=== PATIENT | male | born 1975 | race American Indian/Alaskan Native ===

== ENCOUNTER 2017-06-07 15:01 | Inpatient (IN) | payer MEDICARE ==
[2017-06-07] MEDS ORDERED: DILAUDID IV PRN (15:35)
[2017-06-07] MEDS ORDERED: BENADRYL PO PRN (16:06)
[2017-06-07] MEDS ORDERED: BENADRYL IV PRN (16:23)
--- NOTE | 2017-06-07 16:25 | Event Note ---
Date: 06/07/17 Received consult for port placement. We will evaluate the patient after the spine MRI is performed. If there is question of an abscess in that region, that is a relative contraindication for placement of an implantable intravenous device. We will continue to follow the patient with you. Thank you.
[2017-06-07] MEDS ORDERED: NACL 0.9% 500 ML 500 ML IV SCH (16:26)
[2017-06-07 16:55] LABS: Mean Corpuscular HGB Conc 33 % (32-34); Mean Corpuscular Hemoglobin 31 pg (28-32); Mean Corpuscular Volume 93 fl (84-94); Platelet Count 421 K/mm3 (140-440); Red Blood Count 1.86 M/mm3 (3.65-5.03)
[2017-06-07 16:56] LABS: Reticulocyte % 8.83 % (0.78-2.58)
[2017-06-07 16:57] LABS: White Blood Count 28.1 K/mm3 (4.5-11.0)
[2017-06-07 16:59] LABS: Hemoglobin 5.7 gm/dl (11.8-15.2)
[2017-06-07 17:00] LABS: Hematocrit 17.4 % (35.5-45.6); Red Cell Distribution Width 21.9 % (13.2-15.2)
[2017-06-07 17:07] LABS: INR 1.22 (0.87-1.13)
[2017-06-07] MEDS: D5NS 0.2% 1,000 ML IV SCH (17:30)
[2017-06-07 17:31] LABS: Anion Gap 22 mmol/L; BUN/Creatinine Ratio 16; Blood Urea Nitrogen 21 mg/dL (9-20); Calcium 8.7 mg/dL (8.4-10.2); Carbon Dioxide 21 mmol/L (22-30); Chloride 98.5 mmol/L (98-107); Glucose 85 mg/dL (75-100); Potassium 4.6 mmol/L (3.6-5.0); Sodium 137 mmol/L (137-145)
[2017-06-07] MEDS: BENADRYL IV PRN ×2 (17:33→22:01)
[2017-06-07 18:11] LABS: Basophils % (Manual) 0 % (0.0-1.8); Blastocytes % (Manual) 0 %; Eosinophils % (Manual) 2.5 % (0.0-4.3); Sickle Cells 3+
[2017-06-07 18:12] LABS: Anisocytosis 1+; Poikilocytosis 1+; Polychromasia Few; Target Cells 1+
[2017-06-07 18:13] LABS: Diff Status Complete; Platelet Estimate Cons
--- NOTE | 2017-06-07 20:50 | Consultation ---
History of Present Illness - Reason for Consult Consult date: 06/07/17 SCD/anemia, sickle pain. Requesting physician: LENNOX COHN - History of Present Illness Thank you for this consult, patient seen/examined, record reviewed, case d/w his mom at the bed side. patient admitted from the office, for sxs control.He has many ab, so [facility] will release blood once safe to transfuse. Past History Past Medical History: anemia Social history: no significant social history Medications and Allergies Allergies Allergy/AdvReac Type Severity Reaction Status Date / Time hydroxyzine HCl Allergy Hives Verified 10/24/15 07:44 [From Vistaril] hydroxyzine pamoate Allergy Hives Verified 10/24/15 07:44 [From Vistaril] Home Medications Medication Instructions Recorded Confirmed Last Taken Type Folic Acid [Folvite] 1 mg PO QDAY 05/08/15 06/07/17 06/03/17 History diphenhydrAMINE [Benadryl CAP] 25 mg PO Q6HR PRN 05/08/15 06/07/17 06/07/17 13: 00 History Oxycodone HCl/Acetaminophen 1 each PO Q6HR PRN 10/14/15 06/07/17 06/07/17 13:00 History [Percocet 10/325 mg] Rivaroxaban [Xarelto] 20 mg PO QDAY 06/07/17 06/07/17 06/06/17 History Active Meds: Active Medications Diphenhydramine HCl (Benadryl) 25 mg IV Q3H PRN PRN Reason: Itching Last Admin: 06/07/17 17:33 Dose: 25 mg Diphenhydramine HCl (Benadryl) 25 mg IV Q4H PRN PRN Reason: Itching Diphenhydramine HCl (Benadryl) 25 mg PO PRN PRN PRN Reason: GIVEN FOR BLOOD TRANSFUSION Diphenhydramine HCl (Benadryl) 25 mg IV PRN PRN PRN Reason: GIVE WITH BLOOD TRANSFUSION Hydromorphone HCl (Dilaudid) 2 mg IV Q4H PRN PRN Reason: Pain , Severe (7-10) Dextrose/Sodium Chloride (D5ns 0.2%) 1,000 mls @ 150 mls/hr IV DIRECT JAMIN Last Admin: 06/07/17 17:30 Dose: 150 mls/hr Sodium Chloride (Nacl 0.9% 500 Ml) 500 mls @ 0 mls/hr IV ONCE JAMIN PRN Reason: As Directed Stop: 06/07/17 23:00 Review of Systems Constitutional: fatigue, weakness Musculoskeletal: low back pain Exam - Constitutional Vitals: Temp Pulse Resp BP Pulse Ox 99.1 F 96 H 18 104/63 90 06/07/17 16:26 06/07/17 16:26 06/07/17 16:26 06/07/17 16:26 06/07/17 16:26 General appearance: Present: mild distress - EENT Eyes: Present: PERRL ENT: hearing intact, clear oral mucosa - Neck Neck: Present: supple, normal ROM - Respiratory Respiratory effort: normal Respiratory: bilateral: CTA - Cardiovascular Heart Sounds: Present: S1 & S2. Absent: rub, click - Extremities Extremities: pulses symmetrical, No edema Peripheral Pulses: within normal limits - Abdominal General gastrointestinal: Present: soft, non-tender, non-distended, normal bowel sounds Male genitourinary: Present: deferred - Rectal Rectal Exam: deferred - Integumentary Integumentary: Present: clear, warm, dry - Musculoskeletal Musculoskeletal: gait normal, strength equal bilaterally - Psychiatric Psychiatric: appropriate mood/affect, intact judgment & insight - Neurologic Neurologic: CNII-XII intact, moves all extremities Results - Labs CBC & Chem 7: 06/07/17 15:49 06/07/17 15:49 Labs: Abnormal lab results 06/07/17 06/07/17 06/07/17 Range/Units 15:49 15:49 15:49 WBC 28.1 H (4.5-11.0) K/mm3 RBC 1.86 L (3.65-5.03) M/mm3 Hgb 5.7 L* (11.8-15.2) gm/dl Hct 17.4 L* (35.5-45.6) % RDW 21.9 H (13.2-15.2) % Seg Neuts % (Manual) 74.5 H (40.0-70.0) % Monocytes % (Manual) 7.5 H (0.0-7.3) % Seg Neutrophils # Man 20.9 H (1.8-7.7) K/mm3 Monocytes # (Manual) 2.1 H (0.0-0.8) K/mm3 Eosinophils # (Manual) 0.7 H (0.0-0.4) K/mm3 Percent Retic 8.83 H (0.78-2.58) % PT 16.0 H (12.2-14.9) Sec. INR 1.22 H (0.87-1.13) Carbon Dioxide 21 L (22-30) mmol/L BUN 21 H (9-20) mg/dL Assessment and Plan - Patient Problems (1) Anemia Current Visit: No Status: Acute Qualifiers: Anemia type: unspecified type Qualified Code(s): D64.9 - Anemia, unspecified Plan to address problem: awaiting blood. (2) Dehydration Current Visit: No Status: Acute Plan to address problem: Hydration. (3) Iron overload due to repeated red blood cell transfusions Current Visit: No Status: Acute Plan to address problem: Will attempt Desferol tx.
[2017-06-07] MEDS ORDERED: XYLOCAINE 1% MPF 5 mL INFILTRATI ONE (20:53)
[2017-06-07] MEDS: DILAUDID IV PRN (22:02)
[2017-06-08] MEDS: D5NS 0.2% 1,000 ML IV SCH ×3 (01:02→17:48)
[2017-06-08] MEDS: cefTRIAXone 1 GM in NACL 0.9% 20 ML IV SCH (01:03)
[2017-06-08] MEDS: BENADRYL IV PRN ×5 (01:16→21:29)
[2017-06-08] MEDS: ZOFRAN IV PRN (01:36)
[2017-06-08] MEDS: DILAUDID IV PRN ×6 (02:35→21:30)
--- NOTE | 2017-06-08 03:05 | XRay Report ---
FINAL REPORT EXAM: XR CHEST 1V AP HISTORY: sob, TECHNIQUE: A portable supine view of the chest was obtained. There are no previous studies available for comparison. FINDINGS: The heart size is normal. The lungs appear congested. There are atelectatic changes in the right lung base. Pleural fluid is not seen. The skeletal structures reveal generalized sclerotic changes of the bones related to the patient's underlying sickle cell disease. IMPRESSION: Pulmonary vascular congestion. Mild atelectasis in the right lower lobe.
--- NOTE | 2017-06-08 04:47 | Event Note ---
Date: 06/07/17 See Dictated H/p in reports Sickle cell crisis Acute Anemia-HemolyticPain Management Port placement
--- NOTE | 2017-06-08 05:22 | History and Physical Report ---
ADDENDUM ASSESSMENT AND PLAN: Pulmonary vascular congestion. IV Lasix for now. Systemic inflammatory response syndrome secondary to elevated blood count of 28,000. Stress-induced. We will get blood cultures. Rocephin 2 grams IV piggyback q. 24 hours for broad-spectrum antibiotic coverage. PROGNOSIS: Fair. JOB# [id number] VSM/NTS
--- NOTE | 2017-06-08 05:39 | History and Physical Report ---
CHIEF COMPLAINT: Body aches, severe chest pain for the last 2-3 weeks. HISTORY OF PRESENT ILLNESS: A 41-year-old male, -[place] with sickle cell anemia and sickle cell crisis, comes in for severe pain all over, especially in the retrosternal chest and bilateral heaves for the past 2-3 weeks. The patient ____ nearly 3 weeks. Some shortness of breath present. Some chest pain present. Pain is 10 on a scale of 1-10. No recent travel, no shortness of breath. No fever, no chills. The patient had recurrent blood transfusions in the past. PAST MEDICAL HISTORY: Sickle cell crisis, sickle cell anemia, bilateral hip pain, and chronic pain. PAST SURGICAL HISTORY: Port inserted. Three I and D done for abscesses, two on the right side and one on the left side. No recent abscesses. PERSONAL HISTORY: Does not smoke. No alcohol, no recreational drugs. FAMILY HISTORY: Significant for sickle cell trait and hypertension. CURRENT MEDICATIONS: Folic acid 1 mg daily, Benadryl 25 mg q.6 p.r.n., Percocet 10/325 q.6 p.r.n. REVIEW OF SYSTEMS: Significant for pain all over. No exacerbating or relieving factors. Pain is 10/10 on a scale of 1-10. Pain is more in both hips and chest. Otherwise, review of systems is negative. PHYSICAL EXAMINATION: GENERAL: Young male, cooperative during examination. VITAL SIGNS: Blood pressure is 104/63, temperature is 99.1, pulse is 96, respirations are 18, sats are 90%. HEENT: Pale mucous membranes. NECK: Supple, no lymphadenopathy, no thyromegaly. LUNGS: Clear to auscultation and percussion. Good air entry. CARDIOVASCULAR: S1, S2 heard. No gallop, no murmur, no rub. Apical impulse in left fifth intercostal space and midclavicular line. ABDOMEN: Soft and benign. No hepatosplenomegaly, no guarding, no rigidity. Hernial orifices are normal. EXTREMITIES: Good pedal pulses. No pedal edema. CENTRAL NERVOUS SYSTEM: Alert and oriented x 4, nonfocal exam. Range of motion normal at both hips. LABORATORY DATA: Significant for white count of 28,000, hemoglobin of 5.7, hematocrit of 17.4. Retic count is 8.83%. BUN and creatinine are slightly high at 21 and 1.3. Sodium is 137, potassium is 4.6, calcium is 8.7, glucose is 85. ASSESSMENT AND PLAN: 1. Sickle cell crisis. The patient to be given IV fluids and IV Dilaudid 2 mg every [address] Myers consulted. 2. Pulmonary vascular congestion. Lasix initiated. 3. Bilateral hip pain. X-rays of both the hips to be obtained. 4. Acute hemolytic anemia secondary to sickle cell crisis. The patient to be transfused 2 units of blood and ____ monitor of him hematocrit and hemoglobin. 4. Chronic pain. The patient to get Dilaudid 2 mg every 3 hours and IV fluids. Percocet p.r.n. We will require a port insertion for medication administration. 5. Deep venous thrombosis prophylaxis, Lovenox 40 mg subcutaneous daily. JOB# [id number] BROCK/JACKSON
[2017-06-08] MEDS ORDERED: VALIUM IV STA (09:25)
[2017-06-08] MEDS ORDERED: ROCEPHIN IV SCH (10:00)
--- NOTE | 2017-06-08 13:33 | Magnetic Resonance Report ---
MRI LUMBAR SPINE WITHOUT AND WITH CONTRAST: 05/29/17 CLINICAL: Sickle cell crisis and bacteremia. TECHNIQUE: Sagittal and axial T1 and T2, sagittal STIR and sagittal and axial postcontrast T1 fat sat sequences a 1.5 Sue magnet. 15 cc of Multihance was injected intravenously for the contrast portion of the exam. The patient was sedated by a floor nurse prior to the procedure. FINDINGS: Bony changes in the lumbar spine are compatible with sickle cell disease. The bone marrow is hypointense on all sequences. No bone lesions are identified. No mass or enhancing lesion. No fluid collection or abscess. Decreased T2 disc signal at L3-4 and L4-5. The rest of the discs have normal signal. The conus medullaris is normal and terminates at L1. The discs are intact at all levels. No disc protrusions or bulges. No neural foraminal narrowing. IMPRESSION: 1. No evidence of infection or abscess. 2. Bone marrow changes typical of sickle cell disease. 3. Disc desiccation at L3-4 and L4-5 but no disc protrusions or bulges. 4. No neural foraminal stenosis. 5. No suspicious bone lesion.
--- NOTE | 2017-06-08 13:56 | Event Note ---
Date: 06/08/17 Infection has been excluded via lumbar spine MRI. We can proceed with port placement tomorrow. Full consult to follow.
[2017-06-08 15:01] LABS: INR 1.17 (0.87-1.13)
[2017-06-08] MEDS ORDERED: DILAUDID IV PRN (15:41)
--- NOTE | 2017-06-08 18:18 | XRay Report ---
FINAL REPORT EXAM: XR ABDOMEN 2V HISTORY: vomiting, pain TECHNIQUE: Supine and upright abdomen PRIORS: None. FINDINGS: Moderate amount of stool and gas present within the colon. No evidence of colonic or small bowel dilatation. No signs of free air. No abnormal calcifications are identified. IVC filter noted at the L2-L3 level IMPRESSION: Nonobstructive bowel gas pattern. No acute abnormality seen.
[2017-06-08] MEDS ORDERED: NACL 0.9% 500 ML 500 ML IV ONE (20:00)
--- NOTE | 2017-06-08 21:36 | Progress Note ---
Assessment and Plan - Patient Problems (1) Anemia Current Visit: No Status: Acute Qualifiers: Anemia type: unspecified type Qualified Code(s): D64.9 - Anemia, unspecified Plan to address problem: awaiting blood. (2) Dehydration Current Visit: No Status: Acute Plan to address problem: Hydration. (3) Iron overload due to repeated red blood cell transfusions Current Visit: No Status: Acute Plan to address problem: Will attempt Desferol tx. after port placement. Subjective Date of service: 06/08/17 Interval history: Patient seen/examined, resting in bed, his mom at the bed side, they both related to me what happened last night with his rocephin push.. MRI/CXR/abd xray reviewed. L3-L5 decication.The could also be neuropathic pain, as patient is unable to walk, and did not want a bed side commode, instead, he will use a walker. Objective - Constitutional Vitals: Vital Signs - 12hr 06/08/17 06/08/17 17:59 21:30 Temperature 99.3 F Pulse Rate 107 H Respiratory 18 20 Rate Blood Pressure 96/53 O2 Sat by Pulse 84 Oximetry General appearance: Present: mild distress - EENT Eyes: PERRL, EOM intact ENT: hearing intact, clear oral mucosa Ears: bilateral: normal - Neck Neck: supple, normal ROM - Respiratory Respiratory effort: normal Respiratory: bilateral: CTA - Cardiovascular Rhythm: regular Heart Sounds: Present: S1 & S2. Absent: gallop, rub Extremities: pulses intact, No edema, normal color, Full ROM - Gastrointestinal General gastrointestinal: Present: soft, non-tender, non-distended, normal bowel sounds Rectal Exam: deferred - Genitourinary Male genitourinary: deferred - Integumentary Integumentary: clear, warm, dry - Musculoskeletal Musculoskeletal: 1, strength equal bilaterally - Neurologic Neurologic: moves all extremities - Psychiatric Psychiatric: memory intact, appropriate mood/affect, intact judgment & insight - Labs CBC & Chem 7: 06/07/17 15:49 06/07/17 15:49 Labs: Abnormal lab results 06/08/17 Range/Units 14:31 PT 15.5 H (12.2-14.9) Sec. INR 1.17 H (0.87-1.13)
[2017-06-08] MEDS ORDERED: NACL 0.9% 500 ML 500 ML ONE (23:07)
--- NOTE | 2017-06-08 23:51 | Progress Note ---
Assessment and Plan - Patient Problems (1) Systemic inflammatory response syndrome Current Visit: No Status: Acute Plan to address problem: Leukocytosis Etio unclear IV rocephin and zithromax for now (2) Sickle cell pain crisis Current Visit: No Status: Acute Plan to address problem: IV fluids and IV Dilaudid prn Retic count high (3) Anemia requiring transfusions Current Visit: No Status: Acute Plan to address problem: Patient has multiple antibodies.Hence delay in getting transfusions.Ordered 3 units.Still pending (4) Iron overload due to repeated red blood cell transfusions Current Visit: No Status: Chronic Plan to address problem: patient on desferoxaime (5) DVT prophylaxis Current Visit: Yes Status: Acute Plan to address problem: on lovenox Subjective Date of service: 06/08/17 Principal diagnosis: SC crisis Interval history: Still in pain.04/19 Objective - Constitutional Vitals: Vital Signs - 12hr 06/08/17 06/08/17 06/08/17 17:59 21:30 21:44 Temperature 99.3 F 99.3 F Pulse Rate 107 H Respiratory 18 20 16 Rate Blood Pressure 96/53 101/56 O2 Sat by Pulse 84 Oximetry 06/08/17 06/08/17 06/08/17 22:00 23:21 23:36 Temperature 98.8 F 99.0 F Pulse Rate 73 101 H Respiratory 20 20 20 Rate Blood Pressure 99/66 87/43 O2 Sat by Pulse 98 98 Oximetry General appearance: Present: no acute distress, well-nourished - EENT Eyes: PERRL, EOM intact ENT: hearing intact, clear oral mucosa Ears: bilateral: normal - Neck Neck: supple, normal ROM - Respiratory Respiratory effort: normal Respiratory: bilateral: CTA - Breasts Breasts: normal - Cardiovascular Heart rate: 78 Rhythm: regular Heart Sounds: Present: S1 & S2. Absent: gallop, rub Extremities: no ischemia, pulses intact, pulses symmetrical, No edema, normal color, Full ROM - Gastrointestinal General gastrointestinal: Present: soft, non-tender, non-distended, normal bowel sounds - Genitourinary Male genitourinary: normal - Integumentary Integumentary: clear, warm, dry - Musculoskeletal Musculoskeletal: 1, strength equal bilaterally - Neurologic Neurologic: moves all extremities - Psychiatric Psychiatric: memory intact, appropriate mood/affect, intact judgment & insight - Labs CBC & Chem 7: 06/07/17 15:49 06/07/17 15:49 Labs: Abnormal lab results 06/08/17 Range/Units 14:31 PT 15.5 H (12.2-14.9) Sec. INR 1.17 H (0.87-1.13)
[2017-06-09] MEDS: NEURONTIN PO SCH ×3 (00:24→21:32)
[2017-06-09] MEDS: DILAUDID IV PRN ×5 (03:09→21:31)
[2017-06-09] MEDS: ZOFRAN IV PRN (03:09)
[2017-06-09] MEDS: BENADRYL IV PRN ×5 (03:17→21:31)
[2017-06-09] MEDS: cefTRIAXone 1 GM in NACL 0.9% 20 ML IV SCH (04:58)
--- NOTE | 2017-06-09 11:23 | Event Note ---
Date: 06/09/[address] Quick this morning. We agreed that in light of the patient's leukocytosis and other infectious issues, it is better to defer placing an implantable intravenous device at this time. Once the leukocytosis has resolved and if the patient continues to be afebrile, we can proceed with port placement on an inpatient or outpatient basis.
[2017-06-09] MEDS ORDERED: NACL 0.9% 500 ML 500 ML ONE (12:34)
[2017-06-09] MEDS: ZITHROMAX 500 MG in NACL 0.9% 250ML 250 ML IV SCH (12:38)
[2017-06-09] MEDS: cefTRIAXone 2 GM in NACL 0.9% 20 ML IV SCH (12:38)
--- NOTE | 2017-06-09 14:45 | Progress Note ---
Assessment and Plan Assessment and plan: Sickle cell pain crises Sickle cell anemia SIRS - Hemoglobin at admission was 5.7, transfused 2 units of blood ordered repeat CBC but was not done - Don't know his posttransfusion hemoglobin and hematocrit - Patient has SIRS, was admission WBC count of 28, pending repeat one, she empties is empirically on Rocephin - Patient need port cath placement but not placed because of his SIRS/ Leukocytosis, scrotal surgery recommended to detailed outpatient DVT prophylaxis - SCDs because of severe anemia Disposition - Continue inpatient care I have discussed the management plan with his mother and the patient. History Interval history: Patient was seen and evaluated this morning, patient is complaining she is feeling weak pain in his legs and back. Labs are not done for the last 2 days, has been ordered but not collected. Put a communication order. Hospitalist Physical - Physical exam Narrative exam: Not in cardiopulmonary distress. The patient appeared well nourished and normally developed. Pale conjunctiva. Vital signs as documented. Head exam is unremarkable. No scleral icterus . Neck is without jugular venous distension, thyromegaly, or carotid bruits. Lungs are clear to auscultation. Cardiac exam reveals regular rate and Rhythm. First and second heart sounds normal. No murmurs, rubs or gallops. Abdominal exam reveals normal bowel sounds, no masses, no organomegaly and no aortic enlargement. Extremities are nonedematous and both femoral and pedal pulses are normal. [employer] COMP[employer]ER: Alert and oriented 3. No focal weakness. - Constitutional Vitals: Temp Pulse Resp BP Pulse Ox 98.4 F 89 14 86/57 99 06/09/17 08:09 06/09/17 06:12 06/09/17 08:09 06/09/17 08:09 06/09/17 02:45 General appearance: Present: no acute distress, well-nourished Results - Labs CBC & Chem 7: 06/07/17 15:49 06/07/17 15:49 Labs: Laboratory Last Values WBC 28.1 K/mm3 (4.5-11.0) H 06/07/17 15:49 RBC 1.86 M/mm3 (3.65-5.03) L 06/07/17 15:49 Hgb 5.7 gm/dl (11.8-15.2) L* 06/07/17 15:49 Hct 17.4 % (35.5-45.6) L* 06/07/17 15:49 MCV 93 fl (84-94) 06/07/17 15:49 MCH 31 pg (28-32) 06/07/17 15:49 MCHC 33 % (32-34) 06/07/17 15:49 RDW 21.9 % (13.2-15.2) H 06/07/17 15:49 Plt Count 421 K/mm3 (140-440) 06/07/17 15:49 Lymph # Double End Tenoner Setter 06/07/17 15:49 Add Manual Diff Complete 06/07/17 15:49 Total Counted 200 06/07/17 15:49 Seg Neuts % (Manual) 74.5 % (40.0-70.0) H 06/07/17 15:49 Band Neutrophils % 0 % 06/07/17 15:49 Lymphocytes % (Manual) 15.5 % (13.4-35.0) 06/07/17 15:49 Reactive Lymphs % (Man) 0 % 06/07/17 15:49 Monocytes % (Manual) 7.5 % (0.0-7.3) H 06/07/17 15:49 Eosinophils % (Manual) 2.5 % (0.0-4.3) 06/07/17 15:49 Basophils % (Manual) 0 % (0.0-1.8) 06/07/17 15:49 Metamyelocytes % 0 % 06/07/17 15:49 Myelocytes % 0 % 06/07/17 15:49 Promyelocytes % 0 % 06/07/17 15:49 Blast Cells % 0 % 06/07/17 15:49 Nucleated RBC % Not Reportable 06/07/17 15:49 Seg Neutrophils # Man 20.9 K/mm3 (1.8-7.7) H 06/07/17 15:49 Band Neutrophils # 0.0 K/mm3 06/07/17 15:49 Lymphocytes # (Manual) 4.4 K/mm3 (1.2-5.4) 06/07/17 15:49 Abs React Lymphs (Man) 0.0 K/mm3 06/07/17 15:49 Monocytes # (Manual) 2.1 K/mm3 (0.0-0.8) H 06/07/17 15:49 Eosinophils # (Manual) 0.7 K/mm3 (0.0-0.4) H 06/07/17 15:49 Basophils # (Manual) 0.0 K/mm3 (0.0-0.1) 06/07/17 15:49 Metamyelocytes # 0.0 K/mm3 06/07/17 15:49 Myelocytes # 0.0 K/mm3 06/07/17 15:49 Promyelocytes # 0.0 K/mm3 06/07/17 15:49 Blast Cells # 0.0 K/mm3 06/07/17 15:49 WBC Morphology Not Reportable 06/07/17 15:49 Hypersegmented Neuts Not Reportable 06/07/17 15:49 Hyposegmented Neuts Not Reportable 06/07/17 15:49 Hypogranular Neuts Not Reportable 06/07/17 15:49 Smudge Cells Not Reportable 06/07/17 15:49 Toxic Granulation Not Reportable 06/07/17 15:49 Toxic Vacuolation Not Reportable 06/07/17 15:49 Dohle Bodies Not Reportable 06/07/17 15:49 Pelger-Huet Anomaly Not Reportable 06/07/17 15:49 Farrah Rods Not Reportable 06/07/17 15:49 Platelet Estimate Cons 06/07/17 15:49 Clumped Platelets Not Reportable 06/07/17 15:49 Plt Clumps, EDTA Not Reportable 06/07/17 15:49 Large Platelets Not Reportable 06/07/17 15:49 Giant Platelets Not Reportable 06/07/17 15:49 Platelet Satelliting Not Reportable 06/07/17 15:49 Plt Morphology Comment Not Reportable 06/07/17 15:49 RBC Morphology Not Reportable 06/07/17 15:49 Dimorphic RBCs Not Reportable 06/07/17 15:49 Polychromasia Few 06/07/17 15:49 Hypochromasia Not Reportable 06/07/17 15:49 Poikilocytosis 1+ 06/07/17 15:49 Anisocytosis 1+ 06/07/17 15:49 Microcytosis Not Reportable 06/07/17 15:49 Macrocytosis Not Reportable 06/07/17 15:49 Spherocytes Not Reportable 06/07/17 15:49 Pappenheimer Bodies Not Reportable 06/07/17 15:49 Sickle Cells 3+ 06/07/17 15:49 Target Cells 1+ 06/07/17 15:49 Tear Drop Cells Not Reportable 06/07/17 15:49 Ovalocytes Not Reportable 06/07/17 15:49 Helmet Cells Not Reportable 06/07/17 15:49 [place] Bodies Not Reportable 06/07/17 15:49 [place] Rings Not Reportable 06/07/17 15:49 [place] Cells Not Reportable 06/07/17 15:49 Bite Cells Not Reportable 06/07/17 15:49 Crenated Cell Not Reportable 06/07/17 15:49 Elliptocytes Not Reportable 06/07/17 15:49 Acanthocytes (Spur) Not Reportable 06/07/17 15:49 Rouleaux Not Reportable 06/07/17 15:49 Hemoglobin C Crystals Not Reportable 06/07/17 15:49 Schistocytes Not Reportable 06/07/17 15:49 Malaria parasites Not Reportable 06/07/17 15:49 Percent Retic 8.83 % (0.78-2.58) H 06/07/17 15:49 Tom Bodies Not Reportable 06/07/17 15:49 Hem Pathologist Commnt No 06/07/17 15:49 PT 15.5 Sec. (12.2-14.9) H 06/08/17 14:31 INR 1.17 (0.87-1.13) H 06/08/17 14:31 Sodium 137 mmol/L (137-145) 06/07/17 15:49 Potassium 4.6 mmol/L (3.6-5.0) 06/07/17 15:49 Chloride 98.5 mmol/L (98-107) 06/07/17 15:49 Carbon Dioxide 21 mmol/L (22-30) L 06/07/17 15:49 Anion Gap 22 mmol/L 06/07/17 15:49 BUN 21 mg/dL (9-20) H 06/07/17 15:49 Creatinine 1.3 mg/dL (0.8-1.5) 06/07/17 15:49 Estimated GFR > 60 ml/min 06/07/17 15:49 BUN/Creatinine Ratio 16 % 06/07/17 15:49 Glucose 85 mg/dL (75-100) 06/07/17 15:49 Calcium 8.7 mg/dL (8.4-10.2) 06/07/17 15:49 Blood Type A POSITIVE 06/07/17 18:10 Antibody Screen Negative 06/07/17 18:10
[2017-06-09 14:48] LABS: Hemoglobin 6.5 gm/dl (11.8-15.2); Mean Corpuscular HGB Conc 35 % (32-34); Mean Corpuscular Hemoglobin 30 pg (28-32); Mean Corpuscular Volume 86 fl (84-94); Platelet Count 410 K/mm3 (140-440); Red Blood Count 2.15 M/mm3 (3.65-5.03)
[2017-06-09 14:54] LABS: Red Cell Distribution Width 21.8 % (13.2-15.2); White Blood Count 20.2 K/mm3 (4.5-11.0)
[2017-06-09 14:55] LABS: Hematocrit 18.4 % (35.5-45.6)
[2017-06-09 15:02] LABS: Anion Gap 16 mmol/L; BUN/Creatinine Ratio 17; Blood Urea Nitrogen 15 mg/dL (9-20); Calcium 8.4 mg/dL (8.4-10.2); Carbon Dioxide 22 mmol/L (22-30); Chloride 101.7 mmol/L (98-107); Glucose 84 mg/dL (75-100); INR 1.29 (0.87-1.13); Potassium 4.7 mmol/L (3.6-5.0); Sodium 135 mmol/L (137-145)
--- NOTE | 2017-06-09 16:35 | Progress Note ---
Assessment and Plan - Patient Problems (1) Anemia Current Visit: No Status: Acute Qualifiers: Anemia type: unspecified type Qualified Code(s): D64.9 - Anemia, unspecified Plan to address problem: awaiting blood. (2) Dehydration Current Visit: No Status: Acute Plan to address problem: Hydration. (3) Iron overload due to repeated red blood cell transfusions Current Visit: No Status: Chronic Plan to address problem: Will attempt Desferol tx. after port placement. Subjective Date of service: 06/09/17 Principal diagnosis: SC crisis Interval history: Patient seen/examined, resting in bed, his mom at the bed side, they both related to me what happened last night with his rocephin push.. MRI/CXR/abd xray reviewed. L3-L5 decication.The could also be neuropathic pain, as patient is unable to walk, and did not want a bed side commode, instead, he will use a walker. Patient seen, resting in bed, labs reviewed, case d/w patient.No blood yet. Objective - Constitutional Vitals: Vital Signs - 12hr 06/09/17 06/09/17 06/09/17 06:12 07:31 08:09 Temperature 98.7 F 98.4 F Pulse Rate 89 Respiratory 20 20 14 Rate Blood Pressure 88/54 86/57 General appearance: Present: no acute distress, well-nourished - EENT Eyes: PERRL, EOM intact ENT: hearing intact, clear oral mucosa Ears: bilateral: normal - Neck Neck: supple, normal ROM - Respiratory Respiratory effort: normal Respiratory: bilateral: CTA - Cardiovascular Rhythm: regular Heart Sounds: Present: S1 & S2. Absent: gallop, rub Extremities: pulses intact, No edema, normal color, Full ROM - Gastrointestinal General gastrointestinal: Present: soft, non-tender, non-distended, normal bowel sounds - Genitourinary Male genitourinary: deferred - Integumentary Integumentary: clear, warm, dry - Musculoskeletal Musculoskeletal: 1, strength equal bilaterally - Neurologic Neurologic: moves all extremities - Psychiatric Psychiatric: memory intact, appropriate mood/affect, intact judgment & insight - Labs CBC & Chem 7: 06/09/17 14:30 06/09/17 14:30 Labs: Abnormal lab results 06/09/17 06/09/17 06/09/17 Range/Units 14:30 14:30 14:30 WBC 20.2 H (4.5-11.0) K/mm3 RBC 2.15 L (3.65-5.03) M/mm3 Hgb 6.5 L (11.8-15.2) gm/dl Hct 18.4 L* (35.5-45.6) % MCHC 35 H (32-34) % RDW 21.8 H (13.2-15.2) % PT 16.7 H (12.2-14.9) Sec. INR 1.29 H (0.87-1.13) Sodium 135 L (137-145) mmol/L
[2017-06-09] MEDS: D5NS 0.2% 1,000 ML IV SCH (19:58)
[2017-06-10] MEDS: BENADRYL IV PRN ×6 (01:39→21:36)
[2017-06-10] MEDS: DILAUDID IV PRN ×6 (01:39→21:35)
[2017-06-10 02:11] LABS: Bilirubin,Urine NEG (Negative); Blood,Urine SM (Negative); Ketones,Urine NEG (Negative); Leukocyte Esterase,Urine NEG (Negative); Nitrite,Urine NEG (Negative); Urobilinogen,Urine < 2.0 mg/dL (<2.0); WBC,Urine < 1.0 /HPF (0.0-6.0)
[2017-06-10] MEDS: D5NS 0.2% 1,000 ML IV SCH ×2 (05:37→22:14)
[2017-06-10 05:53] LABS: Hematocrit 22.3 % (35.5-45.6); Hemoglobin 7.8 gm/dl (11.8-15.2); Mean Corpuscular HGB Conc 35 % (32-34); Mean Corpuscular Hemoglobin 30 pg (28-32); Mean Corpuscular Volume 86 fl (84-94); Platelet Count 457 K/mm3 (140-440); Red Blood Count 2.61 M/mm3 (3.65-5.03)
[2017-06-10 06:00] LABS: Red Cell Distribution Width 20.8 % (13.2-15.2); White Blood Count 20.5 K/mm3 (4.5-11.0)
[2017-06-10 06:01] LABS: Anion Gap 17 mmol/L; BUN/Creatinine Ratio 16; Blood Urea Nitrogen 14 mg/dL (9-20); Calcium 8.6 mg/dL (8.4-10.2); Carbon Dioxide 23 mmol/L (22-30); Chloride 100.8 mmol/L (98-107); Glucose 110 mg/dL (75-100); Potassium 4.6 mmol/L (3.6-5.0); Sodium 136 mmol/L (137-145)
[2017-06-10 07:28] LABS: Blastocytes % (Manual) 0 %
[2017-06-10 07:29] LABS: Anisocytosis 2+; Diff Status Complete; Elliptocytes 1+; Hypochromasia 1+; Microcytosis 1+; Ovalocytes Few; Poikilocytosis 1+; Polychromasia 2+; Sickle Cells 1+; Target Cells 1+; Tear Drop Cells Rare
[2017-06-10] MEDS: NEURONTIN PO SCH ×2 (10:54→21:34)
[2017-06-10] MEDS: ZITHROMAX 500 MG in NACL 0.9% 250ML 250 ML IV SCH (11:00)
[2017-06-10] MEDS: cefTRIAXone 2 GM in NACL 0.9% 20 ML IV SCH (11:00)
--- NOTE | 2017-06-10 13:46 | Progress Note ---
Assessment and Plan Assessment and plan: Sickle cell pain crises Sickle cell anemia SIRS - Hemoglobin at admission was 5.7, and 7.8 this morning - Patient has SIRS, was admission WBC count of 28, 20k this morning, Alma is empirically on Rocephin - Patient need port cath placement but not placed because of his SIRS/ Leukocytosis, vascular surgery recommended to detailed outpatient DVT prophylaxis - SCDs because of severe anemia Disposition - Continue inpatient care I have discussed the management plan with his mother and the patient. History Interval history: Patient was seen and evaluated this morning, patient is complaining she is feeling weak pain in his legs and back. Hospitalist Physical - Physical exam Narrative exam: Not in cardiopulmonary distress. The patient appeared well nourished and normally developed. Pale conjunctiva. Vital signs as documented. Head exam is unremarkable. No scleral icterus . Neck is without jugular venous distension, thyromegaly, or carotid bruits. Lungs are clear to auscultation. Cardiac exam reveals regular rate and Rhythm. First and second heart sounds normal. No murmurs, rubs or gallops. Abdominal exam reveals normal bowel sounds, no masses, no organomegaly and no aortic enlargement. Extremities are nonedematous and both femoral and pedal pulses are normal. FIELD INSTALLATION TECHNICIAN: Alert and oriented 3. No focal weakness. - Constitutional Vitals: Temp Pulse Resp BP Pulse Ox 98.2 F 92 H 12 132/88 97 06/10/17 08:10 06/10/17 08:10 06/10/17 08:10 06/10/17 08:10 06/10/17 08:10 General appearance: Present: no acute distress, well-nourished Results - Labs CBC & Chem 7: 06/10/17 05:26 06/10/17 05:26 Labs: Laboratory Last Values WBC 20.5 K/mm3 (4.5-11.0) H 06/10/17 05:26 RBC 2.61 M/mm3 (3.65-5.03) L 06/10/17 05:26 Hgb 7.8 gm/dl (11.8-15.2) L 06/10/17 05:26 Hct 22.3 % (35.5-45.6) L 06/10/17 05:26 MCV 86 fl (84-94) 06/10/17 05:26 MCH 30 pg (28-32) 06/10/17 05:26 MCHC 35 % (32-34) H 06/10/17 05:26 RDW 20.8 % (13.2-15.2) H 06/10/17 05:26 Plt Count 457 K/mm3 (140-440) H 06/10/17 05:26 Lymph # Heavy Equipment Sales Associate 06/07/17 15:49 Add Manual Diff Complete 06/10/17 05:26 Total Counted 100 06/10/17 05:26 Seg Neuts % (Manual) 75.0 % (40.0-70.0) H 06/10/17 05:26 Band Neutrophils % 0 % 06/10/17 05:26 Lymphocytes % (Manual) 17.0 % (13.4-35.0) 06/10/17 05:26 Reactive Lymphs % (Man) 0 % 06/10/17 05:26 Monocytes % (Manual) 1.0 % (0.0-7.3) 06/10/17 05:26 Eosinophils % (Manual) 4.0 % (0.0-4.3) 06/10/17 05:26 Basophils % (Manual) 1.0 % (0.0-1.8) 06/10/17 05:26 Metamyelocytes % 2.0 % 06/10/17 05:26 Myelocytes % 0 % 06/10/17 05:26 Promyelocytes % 0 % 06/10/17 05:26 Blast Cells % 0 % 06/10/17 05:26 Nucleated RBC % Not Reportable 06/10/17 05:26 Seg Neutrophils # Man 15.4 K/mm3 (1.8-7.7) H 06/10/17 05:26 Band Neutrophils # 0.0 K/mm3 06/10/17 05:26 Lymphocytes # (Manual) 3.5 K/mm3 (1.2-5.4) 06/10/17 05:26 Abs React Lymphs (Man) 0.0 K/mm3 06/10/17 05:26 Monocytes # (Manual) 0.2 K/mm3 (0.0-0.8) 06/10/17 05:26 Eosinophils # (Manual) 0.8 K/mm3 (0.0-0.4) H 06/10/17 05:26 Basophils # (Manual) 0.2 K/mm3 (0.0-0.1) H 06/10/17 05:26 Metamyelocytes # 0.4 K/mm3 06/10/17 05:26 Myelocytes # 0.0 K/mm3 06/10/17 05:26 Promyelocytes # 0.0 K/mm3 06/10/17 05:26 Blast Cells # 0.0 K/mm3 06/10/17 05:26 WBC Morphology Not Reportable 06/10/17 05:26 Hypersegmented Neuts Not Reportable 06/10/17 05:26 Hyposegmented Neuts Not Reportable 06/10/17 05:26 Hypogranular Neuts Not Reportable 06/10/17 05:26 Smudge Cells Not Reportable 06/10/17 05:26 Toxic Granulation Not Reportable 06/10/17 05:26 Toxic Vacuolation Not Reportable 06/10/17 05:26 Dohle Bodies Not Reportable 06/10/17 05:26 Pelger-Huet Anomaly Not Reportable 06/10/17 05:26 Farrah Rods Not Reportable 06/10/17 05:26 Platelet Estimate Appears normal 06/10/17 05:26 Clumped Platelets Not Reportable 06/10/17 05:26 Plt Clumps, EDTA Not Reportable 06/10/17 05:26 Large Platelets Not Reportable 06/10/17 05:26 Giant Platelets Not Reportable 06/10/17 05:26 Platelet Satelliting Not Reportable 06/10/17 05:26 Plt Morphology Comment Not Reportable 06/10/17 05:26 RBC Morphology Not Reportable 06/10/17 05:26 Dimorphic RBCs Not Reportable 06/10/17 05:26 Polychromasia 2+ 06/10/17 05:26 Hypochromasia 1+ 06/10/17 05:26 Poikilocytosis 1+ 06/10/17 05:26 Anisocytosis 2+ 06/10/17 05:26 Microcytosis 1+ 06/10/17 05:26 Macrocytosis Not Reportable 06/10/17 05:26 Spherocytes Not Reportable 06/10/17 05:26 Pappenheimer Bodies Not Reportable 06/10/17 05:26 Sickle Cells 1+ 06/10/17 05:26 Target Cells 1+ 06/10/17 05:26 Tear Drop Cells Rare 06/10/17 05:26 Ovalocytes Few 06/10/17 05:26 Helmet Cells Not Reportable 06/10/17 05:26 Go-[place] Bodies Not Reportable 06/10/17 05:26 [place] Rings Not Reportable 06/10/17 05:26 [place] Cells Not Reportable 06/10/17 05:26 Bite Cells Not Reportable 06/10/17 05:26 Crenated Cell Not Reportable 06/10/17 05:26 Elliptocytes 1+ 06/10/17 05:26 Acanthocytes (Spur) Not Reportable 06/10/17 05:26 Rouleaux Not Reportable 06/10/17 05:26 Hemoglobin C Crystals Not Reportable 06/10/17 05:26 Schistocytes Not Reportable 06/10/17 05:26 Malaria parasites Not Reportable 06/10/17 05:26 Percent Retic 8.83 % (0.78-2.58) H 06/07/17 15:49 Tom Bodies Not Reportable 06/10/17 05:26 Hem Pathologist Commnt No 06/10/17 05:26 PT 16.7 Sec. (12.2-14.9) H 06/09/17 14:30 INR 1.29 (0.87-1.13) H 06/09/17 14:30 Sodium 136 mmol/L (137-145) L 06/10/17 05:26 Potassium 4.6 mmol/L (3.6-5.0) 06/10/17 05:26 Chloride 100.8 mmol/L (98-107) 06/10/17 05:26 Carbon Dioxide 23 mmol/L (22-30) 06/10/17 05:26 Anion Gap 17 mmol/L 06/10/17 05:26 BUN 14 mg/dL (9-20) 06/10/17 05:26 Creatinine 0.9 mg/dL (0.8-1.5) 06/10/17 05:26 Estimated GFR > 60 ml/min 06/10/17 05:26 BUN/Creatinine Ratio 16 % 06/10/17 05:26 Glucose 110 mg/dL (75-100) H 06/10/17 05:26 Calcium 8.6 mg/dL (8.4-10.2) 06/10/17 05:26 Urine Color Yellow (Yellow) 06/10/17 01:45 Urine Turbidity Clear (Clear) 06/10/17 01:45 Urine pH 6.0 (5.0-7.0) 06/10/17 01:45 Ur Specific [place] 1.011 (1.003-1.030) 06/10/17 01:45 Urine Protein 100 mg/dl mg/dL (Negative) 06/10/17 01:45 Urine Glucose (UA) Neg mg/dL (Negative) 06/10/17 01:45 Urine Ketones Neg mg/dL (Negative) 06/10/17 01:45 Urine Blood Sm (Negative) 06/10/17 01:45 Urine Nitrite Neg (Negative) 06/10/17 01:45 Urine Bilirubin Neg (Negative) 06/10/17 01:45 Urine Urobilinogen < 2.0 mg/dL (<2.0) 06/10/17 01:45 Ur Leukocyte Esterase Neg (Negative) 06/10/17 01:45 Urine WBC (Auto) < 1.0 /HPF (0.0-6.0) 06/10/17 01:45 Urine RBC (Auto) 4.0 /HPF (0.0-6.0) 06/10/17 01:45 Blood Type A POSITIVE 06/07/17 18:10 Antibody Screen Negative 06/07/17 18:10
[2017-06-10 17:23] LABS: INR 1.08 (0.87-1.13)
--- NOTE | 2017-06-10 19:07 | Progress Note ---
Assessment and Plan - Patient Problems (1) Anemia Current Visit: No Status: Acute Qualifiers: Anemia type: unspecified type Qualified Code(s): D64.9 - Anemia, unspecified Plan to address problem: awaiting blood. Transfused already. (2) Dehydration Current Visit: No Status: Acute Plan to address problem: Hydration. (3) Iron overload due to repeated red blood cell transfusions Current Visit: No Status: Chronic Plan to address problem: Will attempt Desferol tx. after port placement. will proceed with the current line. (4) Leukocytosis Current Visit: Yes Status: Acute Plan to address problem: This is probably reactive process, and not infectious, so port placement should proceed.blood culture negative. Subjective Date of service: 06/10/17 Principal diagnosis: SC crisis Interval history: Patient seen/examined, resting in bed, his mom at the bed side, they both related to me what happened last night with his rocephin push.. MRI/CXR/abd xray reviewed. L3-L5 decication.The could also be neuropathic pain, as patient is unable to walk, and did not want a bed side commode, instead, he will use a walker. Patient seen, resting in bed, labs reviewed, case d/w patient.No blood yet. patient seen/examined, resting in bed, labs reviewed, h/h improved. Objective - Constitutional Vitals: Vital Signs - 12hr 06/10/17 06/10/17 08:10 16:20 Temperature 98.2 F 98.2 F Pulse Rate 92 H Respiratory 12 16 Rate Blood Pressure 132/88 118/82 O2 Sat by Pulse 97 Oximetry General appearance: Present: mild distress, well-nourished - EENT Eyes: PERRL, EOM intact ENT: hearing intact, clear oral mucosa Ears: bilateral: normal - Neck Neck: supple, normal ROM - Respiratory Respiratory effort: normal Respiratory: bilateral: CTA - Cardiovascular Rhythm: regular Heart Sounds: Present: S1 & S2. Absent: gallop, rub Extremities: pulses intact, No edema, normal color, Full ROM - Gastrointestinal General gastrointestinal: Present: soft, non-tender, non-distended, normal bowel sounds Rectal Exam: deferred - Genitourinary Male genitourinary: deferred - Integumentary Integumentary: clear, warm, dry - Musculoskeletal Musculoskeletal: 1, strength equal bilaterally - Neurologic Neurologic: moves all extremities - Psychiatric Psychiatric: memory intact, appropriate mood/affect, intact judgment & insight - Labs CBC & Chem 7: 06/10/17 05:26 06/10/17 05:26 Labs: Abnormal lab results 06/10/17 06/10/17 Range/Units 05:26 05:26 WBC 20.5 H (4.5-11.0) K/mm3 RBC 2.61 L (3.65-5.03) M/mm3 Hgb 7.8 L (11.8-15.2) gm/dl Hct 22.3 L (35.5-45.6) % MCHC 35 H (32-34) % RDW 20.8 H (13.2-15.2) % Plt Count 457 H (140-440) K/mm3 Seg Neuts % (Manual) 75.0 H (40.0-70.0) % Seg Neutrophils # Man 15.4 H (1.8-7.7) K/mm3 Eosinophils # (Manual) 0.8 H (0.0-0.4) K/mm3 Basophils # (Manual) 0.2 H (0.0-0.1) K/mm3 Sodium 136 L (137-145) mmol/L Glucose 110 H (75-100) mg/dL
[2017-06-10 20:49] LABS: Iron 57 ug/dL (49-181); Total Iron Binding Capacity 156 mcg/dL (250-450)
[2017-06-11] MEDS: DILAUDID IV PRN ×5 (01:31→22:27)
[2017-06-11] MEDS: BENADRYL IV PRN ×5 (01:31→22:28)
[2017-06-11 05:36] LABS: Basophils % (Auto) 0.8 % (0.0-1.8); Eosinophils % (Auto) 4.8 % (0.0-4.3); Hematocrit 22.4 % (35.5-45.6); Hemoglobin 7.8 gm/dl (11.8-15.2); Mean Corpuscular HGB Conc 35 % (32-34); Mean Corpuscular Hemoglobin 31 pg (28-32); Mean Corpuscular Volume 89 fl (84-94); Platelet Count 431 K/mm3 (140-440); Red Blood Count 2.53 M/mm3 (3.65-5.03)
[2017-06-11 05:39] LABS: Red Cell Distribution Width 21.4 % (13.2-15.2)
[2017-06-11 05:55] LABS: BUN/Creatinine Ratio 20; Blood Urea Nitrogen 16 mg/dL (9-20); Calcium 8.6 mg/dL (8.4-10.2); Carbon Dioxide 22 mmol/L (22-30); Chloride 99.8 mmol/L (98-107); Glucose 132 mg/dL (75-100); Sodium 136 mmol/L (137-145)
[2017-06-11 07:19] LABS: Anion Gap 20 mmol/L; Potassium 5.3 mmol/L (3.6-5.0)
[2017-06-11] MEDS: NEURONTIN PO SCH ×3 (08:52→22:28)
[2017-06-11] MEDS: cefTRIAXone 2 GM in NACL 0.9% 20 ML IV SCH (08:53)
[2017-06-11] MEDS: D5NS 0.2% 1,000 ML IV SCH ×2 (09:08→18:10)
[2017-06-11] MEDS: ZITHROMAX 500 MG in NACL 0.9% 250ML 250 ML IV SCH (09:35)
--- NOTE | 2017-06-11 11:19 | Progress Note ---
Assessment and Plan Assessment and plan: Sickle cell pain crises Sickle cell anemia SIRS - Hemoglobin at admission was 5.7, and 7.8 this morning - Patient has SIRS, was admission WBC count of 28, 20k this morning, Alma is empirically on Rocephin, U/A negative, Blood culture negative - Patient need port cath placement but not placed because of his SIRS/ Leukocytosis, vascular surgery recommended to do it after leukocytosis is resolved DVT prophylaxis - SCDs because of severe anemia Disposition - Continue inpatient care I have discussed the management plan with his mother and the patient. History Interval history: Patient was seen and evaluated this morning, patient is complaining he is feeling weak, pain in his legs and back. Hospitalist Physical - Physical exam Narrative exam: Not in cardiopulmonary distress. The patient appeared well nourished and normally developed. Pale conjunctiva. Vital signs as documented. Head exam is unremarkable. No scleral icterus . Neck is without jugular venous distension, thyromegaly, or carotid bruits. Lungs are clear to auscultation. Cardiac exam reveals regular rate and Rhythm. First and second heart sounds normal. No murmurs, rubs or gallops. Abdominal exam reveals normal bowel sounds, no masses, no organomegaly and no aortic enlargement. Extremities are nonedematous and both femoral and pedal pulses are normal. SIZE MARKER: Alert and oriented 3. No focal weakness. - Constitutional Vitals: Temp Pulse Resp BP Pulse Ox 99.1 F 95 H 18 119/84 96 06/11/17 09:15 06/11/17 09:20 06/11/17 09:15 06/11/17 09:15 06/10/17 21:15 General appearance: Present: mild distress, well-nourished Results - Labs CBC & Chem 7: 06/11/17 04:38 06/11/17 04:38 Labs: Laboratory Last Values WBC 20.0 K/mm3 (4.5-11.0) H 06/11/17 04:38 RBC 2.53 M/mm3 (3.65-5.03) L 06/11/17 04:38 Hgb 7.8 gm/dl (11.8-15.2) L 06/11/17 04:38 Hct 22.4 % (35.5-45.6) L 06/11/17 04:38 MCV 89 fl (84-94) 06/11/17 04:38 MCH 31 pg (28-32) 06/11/17 04:38 MCHC 35 % (32-34) H 06/11/17 04:38 RDW 21.4 % (13.2-15.2) H 06/11/17 04:38 Plt Count 431 K/mm3 (140-440) 06/11/17 04:38 Lymph % (Auto) 21.5 % (13.4-35.0) 06/11/17 04:38 [place] % (Auto) 12.3 % (0.0-7.3) H 06/11/17 04:38 Eos % (Auto) 4.8 % (0.0-4.3) H 06/11/17 04:38 Baso % (Auto) 0.8 % (0.0-1.8) 06/11/17 04:38 Lymph # 4.3 K/mm3 (1.2-5.4) 06/11/17 04:38 [place] # 2.5 K/mm3 (0.0-0.8) H 06/11/17 04:38 Eos # 1.0 K/mm3 (0.0-0.4) H 06/11/17 04:38 Baso # 0.2 K/mm3 (0.0-0.1) H 06/11/17 04:38 Add Manual Diff Complete 06/10/17 05:26 Total Counted 100 06/10/17 05:26 Seg Neutrophils % 60.6 % (40.0-70.0) 06/11/17 04:38 Seg Neuts % (Manual) 75.0 % (40.0-70.0) H 06/10/17 05:26 Band Neutrophils % 0 % 06/10/17 05:26 Lymphocytes % (Manual) 17.0 % (13.4-35.0) 06/10/17 05:26 Reactive Lymphs % (Man) 0 % 06/10/17 05:26 Monocytes % (Manual) 1.0 % (0.0-7.3) 06/10/17 05:26 Eosinophils % (Manual) 4.0 % (0.0-4.3) 06/10/17 05:26 Basophils % (Manual) 1.0 % (0.0-1.8) 06/10/17 05:26 Metamyelocytes % 2.0 % 06/10/17 05:26 Myelocytes % 0 % 06/10/17 05:26 Promyelocytes % 0 % 06/10/17 05:26 Blast Cells % 0 % 06/10/17 05:26 Nucleated RBC % Not Reportable 06/10/17 05:26 Seg Neutrophils # 12.1 K/mm3 (1.8-7.7) H 06/11/17 04:38 Seg Neutrophils # Man 15.4 K/mm3 (1.8-7.7) H 06/10/17 05:26 Band Neutrophils # 0.0 K/mm3 06/10/17 05:26 Lymphocytes # (Manual) 3.5 K/mm3 (1.2-5.4) 06/10/17 05:26 Abs React Lymphs (Man) 0.0 K/mm3 06/10/17 05:26 Monocytes # (Manual) 0.2 K/mm3 (0.0-0.8) 06/10/17 05:26 Eosinophils # (Manual) 0.8 K/mm3 (0.0-0.4) H 06/10/17 05:26 Basophils # (Manual) 0.2 K/mm3 (0.0-0.1) H 06/10/17 05:26 Metamyelocytes # 0.4 K/mm3 06/10/17 05:26 Myelocytes # 0.0 K/mm3 06/10/17 05:26 Promyelocytes # 0.0 K/mm3 06/10/17 05:26 Blast Cells # 0.0 K/mm3 06/10/17 05:26 WBC Morphology Not Reportable 06/10/17 05:26 Hypersegmented Neuts Not Reportable 06/10/17 05:26 Hyposegmented Neuts Not Reportable 06/10/17 05:26 Hypogranular Neuts Not Reportable 06/10/17 05:26 Smudge Cells Not Reportable 06/10/17 05:26 Toxic Granulation Not Reportable 06/10/17 05:26 Toxic Vacuolation Not Reportable 06/10/17 05:26 Dohle Bodies Not Reportable 06/10/17 05:26 Pelger-Huet Anomaly Not Reportable 06/10/17 05:26 Farrah Rods Not Reportable 06/10/17 05:26 Platelet Estimate Appears normal 06/10/17 05:26 Clumped Platelets Not Reportable 06/10/17 05:26 Plt Clumps, EDTA Not Reportable 06/10/17 05:26 Large Platelets Not Reportable 06/10/17 05:26 Giant Platelets Not Reportable 06/10/17 05:26 Platelet Satelliting Not Reportable 06/10/17 05:26 Plt Morphology Comment Not Reportable 06/10/17 05:26 RBC Morphology Not Reportable 06/10/17 05:26 Dimorphic RBCs Not Reportable 06/10/17 05:26 Polychromasia 2+ 06/10/17 05:26 Hypochromasia 1+ 06/10/17 05:26 Poikilocytosis 1+ 06/10/17 05:26 Anisocytosis 2+ 06/10/17 05:26 Microcytosis 1+ 06/10/17 05:26 Macrocytosis Not Reportable 06/10/17 05:26 Spherocytes Not Reportable 06/10/17 05:26 Pappenheimer Bodies Not Reportable 06/10/17 05:26 Sickle Cells 1+ 06/10/17 05:26 Target Cells 1+ 06/10/17 05:26 Tear Drop Cells Rare 06/10/17 05:26 Ovalocytes Few 06/10/17 05:26 Helmet Cells Not Reportable 06/10/17 05:26 Go-[place] Bodies Not Reportable 06/10/17 05:26 [place] Rings Not Reportable 06/10/17 05:26 [place] Cells Not Reportable 06/10/17 05:26 Bite Cells Not Reportable 06/10/17 05:26 Crenated Cell Not Reportable 06/10/17 05:26 Elliptocytes 1+ 06/10/17 05:26 Acanthocytes (Spur) Not Reportable 06/10/17 05:26 Rouleaux Not Reportable 06/10/17 05:26 Hemoglobin C Crystals Not Reportable 06/10/17 05:26 Schistocytes Not Reportable 06/10/17 05:26 Malaria parasites Not Reportable 06/10/17 05:26 Percent Retic 8.83 % (0.78-2.58) H 06/07/17 15:49 Tom Bodies Not Reportable 06/10/17 05:26 Hem Pathologist Commnt No 06/10/17 05:26 PT 14.6 Sec. (12.2-14.9) 06/10/17 16:26 INR 1.08 (0.87-1.13) 06/10/17 16:26 Sodium 136 mmol/L (137-145) L 06/11/17 04:38 Potassium 5.3 mmol/L (3.6-5.0) H 06/11/17 04:38 Chloride 99.8 mmol/L (98-107) 06/11/17 04:38 Carbon Dioxide 22 mmol/L (22-30) 06/11/17 04:38 Anion Gap 20 mmol/L 06/11/17 04:38 BUN 16 mg/dL (9-20) 06/11/17 04:38 Creatinine 0.8 mg/dL (0.8-1.5) 06/11/17 04:38 Estimated GFR > 60 ml/min 06/11/17 04:38 BUN/Creatinine Ratio 20 % 06/11/17 04:38 Glucose 132 mg/dL (75-100) H 06/11/17 04:38 Calcium 8.6 mg/dL (8.4-10.2) 06/11/17 04:38 Iron 57 ug/dL (49-181) 06/10/17 19:46 TIBC 156 mcg/dL (250-450) L 06/10/17 19:46 Ferritin 9291.0 ng/mL (13.0-400.0) H 06/10/17 19:46 Urine Color Yellow (Yellow) 06/10/17 01:45 Urine Turbidity Clear (Clear) 06/10/17 01:45 Urine pH 6.0 (5.0-7.0) 06/10/17 01:45 Ur Specific [place] 1.011 (1.003-1.030) 06/10/17 01:45 Urine Protein 100 mg/dl mg/dL (Negative) 06/10/17 01:45 Urine Glucose (UA) Neg mg/dL (Negative) 06/10/17 01:45 Urine Ketones Neg mg/dL (Negative) 06/10/17 01:45 Urine Blood Sm (Negative) 06/10/17 01:45 Urine Nitrite Neg (Negative) 06/10/17 01:45 Urine Bilirubin Neg (Negative) 06/10/17 01:45 Urine Urobilinogen < 2.0 mg/dL (<2.0) 06/10/17 01:45 Ur Leukocyte Esterase Neg (Negative) 06/10/17 01:45 Urine WBC (Auto) < 1.0 /HPF (0.0-6.0) 06/10/17 01:45 Urine RBC (Auto) 4.0 /HPF (0.0-6.0) 06/10/17 01:45 Blood Type A POSITIVE 06/07/17 18:10 Antibody Screen Negative 06/07/17 18:10
[2017-06-11 15:17] LABS: INR 1.07 (0.87-1.13)
--- NOTE | 2017-06-11 15:57 | Progress Note ---
Assessment and Plan - Patient Problems (1) Anemia Current Visit: No Status: Acute Qualifiers: Anemia type: unspecified type Qualified Code(s): D64.9 - Anemia, unspecified Plan to address problem: awaiting blood. Transfused already. (2) Dehydration Current Visit: No Status: Acute Plan to address problem: Hydration. (3) Iron overload due to repeated red blood cell transfusions Current Visit: No Status: Chronic Plan to address problem: Will attempt Desferol tx. after port placement. will proceed with the current line. awaiting results. (4) Leukocytosis Current Visit: Yes Status: Acute Plan to address problem: This is probably reactive process, and not infectious, so port placement should proceed.blood culture negative. this is not infection. Subjective Date of service: 06/11/17 Principal diagnosis: SC crisis Interval history: Patient seen/examined, resting in bed, his mom at the bed side, they both related to me what happened last night with his rocephin push.. MRI/CXR/abd xray reviewed. L3-L5 decication.The could also be neuropathic pain, as patient is unable to walk, and did not want a bed side commode, instead, he will use a walker. Patient seen, resting in bed, labs reviewed, case d/w patient.No blood yet. patient seen/examined, resting in bed, labs reviewed, h/h improved. Patient seen/examined, resting ok in bed, VSS, afebrile. labs reviewed, case d/ w patient. Objective - Constitutional Vitals: Vital Signs - 12hr 06/11/17 06/11/17 06/11/17 09:14 09:15 09:20 Temperature 99.1 F Pulse Rate 95 H Respiratory 18 18 Rate Blood Pressure 119/84 General appearance: Present: mild distress - EENT Eyes: PERRL, EOM intact ENT: hearing intact, clear oral mucosa Ears: bilateral: normal - Neck Neck: supple, normal ROM - Respiratory Respiratory effort: normal Respiratory: bilateral: CTA - Cardiovascular Rhythm: regular Heart Sounds: Present: S1 & S2. Absent: gallop, rub Extremities: pulses intact, No edema, normal color, Full ROM - Gastrointestinal General gastrointestinal: Present: soft, non-tender, non-distended, normal bowel sounds Rectal Exam: deferred - Genitourinary Male genitourinary: deferred - Integumentary Integumentary: clear, warm, dry - Musculoskeletal Musculoskeletal: 1, strength equal bilaterally - Neurologic Neurologic: moves all extremities - Psychiatric Psychiatric: memory intact, appropriate mood/affect, intact judgment & insight - Labs CBC & Chem 7: 06/11/17 04:38 06/11/17 04:38 Labs: Abnormal lab results 06/10/17 06/10/17 06/11/17 Range/Units 19:46 19:46 04:38 WBC 20.0 H (4.5-11.0) K/mm3 RBC 2.53 L (3.65-5.03) M/mm3 Hgb 7.8 L (11.8-15.2) gm/dl Hct 22.4 L (35.5-45.6) % MCHC 35 H (32-34) % RDW 21.4 H (13.2-15.2) % [place] % (Auto) 12.3 H (0.0-7.3) % Eos % (Auto) 4.8 H (0.0-4.3) % [place] # 2.5 H (0.0-0.8) K/mm3 Eos # 1.0 H (0.0-0.4) K/mm3 Baso # 0.2 H (0.0-0.1) K/mm3 Seg Neutrophils # 12.1 H (1.8-7.7) K/mm3 Sodium (137-145) mmol/L Potassium (3.6-5.0) mmol/L Glucose (75-100) mg/dL TIBC 156 L (250-450) mcg/dL Ferritin 9291.0 H (13.0-400.0) ng/mL 06/11/17 Range/Units 04:38 WBC (4.5-11.0) K/mm3 RBC (3.65-5.03) M/mm3 Hgb (11.8-15.2) gm/dl Hct (35.5-45.6) % MCHC (32-34) % RDW (13.2-15.2) % [place] % (Auto) (0.0-7.3) % Eos % (Auto) (0.0-4.3) % [place] # (0.0-0.8) K/mm3 Eos # (0.0-0.4) K/mm3 Baso # (0.0-0.1) K/mm3 Seg Neutrophils # (1.8-7.7) K/mm3 Sodium 136 L (137-145) mmol/L Potassium 5.3 H (3.6-5.0) mmol/L Glucose 132 H (75-100) mg/dL TIBC (250-450) mcg/dL Ferritin (13.0-400.0) ng/mL
[2017-06-12] MEDS: DILAUDID IV PRN ×6 (02:40→23:04)
[2017-06-12] MEDS: BENADRYL IV PRN ×6 (02:41→23:04)
[2017-06-12] MEDS: ZITHROMAX PO SCH ×2 (08:09→18:50)
[2017-06-12] MEDS: cefTRIAXone 2 GM in NACL 0.9% 20 ML IV SCH (08:09)
[2017-06-12] MEDS: NEURONTIN PO SCH ×3 (08:09→23:03)
--- NOTE | 2017-06-12 15:37 | Progress Note ---
Assessment and Plan - Sickle cell pain crises Pain control with narcotic - Sickle cell anemia Hgb stabel at 7.8. Crack Off Person following -Iron overload: To commence Dexferol after port insertion - SIRS Patient has SIRS, WBC count of 28-20k.. Alma is empirically on Rocephin and Azithromycin U/A negative, Blood culture negative Patient need port cath placement but not placed because of his SIRS/ Leukocytosis, vascular surgery recommended to do it after leukocytosis is resolved - DVT prophylaxis - SCDs only because of severe anemia. Will; avoid anticoagulation Subjective Date of service: 06/12/17 Principal diagnosis: SC pain crisis Interval history: Still having pain Objective - Constitutional Vitals: Vital Signs - 12hr 06/12/17 06/12/17 05:14 07:35 Temperature 98.4 F 98.9 F Pulse Rate 98 H 92 H Respiratory 20 16 Rate Blood Pressure 165/104 112/75 O2 Sat by Pulse 96 89 Oximetry General appearance: Present: no acute distress, well-nourished - EENT Eyes: PERRL, EOM intact - Neck Neck: supple, normal ROM - Respiratory Respiratory effort: normal Respiratory: bilateral: CTA - Cardiovascular Rhythm: regular Heart Sounds: Present: S1 & S2. Absent: gallop, rub Extremities: pulses intact, No edema, normal color, Full ROM - Gastrointestinal General gastrointestinal: Present: soft, non-tender, non-distended, normal bowel sounds - Genitourinary Male genitourinary: normal - Integumentary Integumentary: clear, warm, dry - Musculoskeletal Musculoskeletal: 1, strength equal bilaterally - Neurologic Neurologic: moves all extremities - Psychiatric Psychiatric: memory intact, appropriate mood/affect, intact judgment & insight - Labs CBC & Chem 7: 06/11/17 04:38 06/11/17 04:38
--- NOTE | 2017-06-12 15:48 | Progress Note ---
Assessment and Plan - Patient Problems (1) Anemia Current Visit: No Status: Acute Qualifiers: Anemia type: unspecified type Qualified Code(s): D64.9 - Anemia, unspecified Plan to address problem: awaiting blood. Transfused already. monitor labs. (2) Dehydration Current Visit: No Status: Acute Plan to address problem: Hydration. (3) Iron overload due to repeated red blood cell transfusions Current Visit: No Status: Chronic Plan to address problem: Will attempt Desferol tx. after port placement. will proceed with the current line. awaiting results. see notes. (4) Leukocytosis Current Visit: Yes Status: Acute Plan to address problem: This is probably reactive process, and not infectious, so port placement should proceed.blood culture negative. this is not infection. see notes. Subjective Date of service: 06/12/17 Principal diagnosis: SC pain crisis Interval history: Patient seen/examined, resting in bed, his mom at the bed side, they both related to me what happened last night with his rocephin push.. MRI/CXR/abd xray reviewed. L3-L5 decication.The could also be neuropathic pain, as patient is unable to walk, and did not want a bed side commode, instead, he will use a walker. Patient seen, resting in bed, labs reviewed, case d/w patient.No blood yet. patient seen/examined, resting in bed, labs reviewed, h/h improved. Patient seen/examined, resting ok in bed, VSS, afebrile. labs reviewed, case d/ w patient. Patient seen/examined, resting in bed, c/o did not sleep well last night.Still having difficulty ambulating.Will ask orthopedics to see. hHe will also need the port placed, as the elevated wbc is non infection related. Objective - Constitutional Vitals: Vital Signs - 12hr 06/12/17 06/12/17 05:14 07:35 Temperature 98.4 F 98.9 F Pulse Rate 98 H 92 H Respiratory 20 16 Rate Blood Pressure 165/104 112/75 O2 Sat by Pulse 96 89 Oximetry General appearance: Present: mild distress - EENT Eyes: PERRL, EOM intact ENT: hearing intact, clear oral mucosa Ears: bilateral: normal - Neck Neck: supple, normal ROM - Respiratory Respiratory effort: normal Respiratory: bilateral: CTA - Cardiovascular Rhythm: regular Heart Sounds: Present: S1 & S2. Absent: gallop, rub Extremities: pulses intact, No edema, normal color, Full ROM - Gastrointestinal General gastrointestinal: Present: soft, non-tender, non-distended, normal bowel sounds Rectal Exam: deferred - Genitourinary Male genitourinary: deferred - Integumentary Integumentary: clear, warm, dry - Musculoskeletal Musculoskeletal: 1, strength equal bilaterally - Neurologic Neurologic: moves all extremities - Psychiatric Psychiatric: memory intact, appropriate mood/affect, intact judgment & insight - Labs CBC & Chem 7: 06/11/17 04:38 06/11/17 04:38
[2017-06-12 15:59] LABS: Basophils % (Auto) 0.8 % (0.0-1.8); Eosinophils % (Auto) 6.3 % (0.0-4.3); Hematocrit 24.2 % (35.5-45.6); Hemoglobin 8.1 gm/dl (11.8-15.2); Mean Corpuscular HGB Conc 33 % (32-34); Mean Corpuscular Hemoglobin 29 pg (28-32); Mean Corpuscular Volume 88 fl (84-94); Platelet Count 519 K/mm3 (140-440); Red Blood Count 2.74 M/mm3 (3.65-5.03); White Blood Count 19.6 K/mm3 (4.5-11.0)
[2017-06-12 16:01] LABS: Red Cell Distribution Width 23.4 % (13.2-15.2)
[2017-06-12 16:09] LABS: INR 1.06 (0.87-1.13)
[2017-06-12 16:11] LABS: Anion Gap 17 mmol/L; BUN/Creatinine Ratio 23; Blood Urea Nitrogen 21 mg/dL (9-20); Calcium 8.7 mg/dL (8.4-10.2); Carbon Dioxide 22 mmol/L (22-30); Chloride 98.9 mmol/L (98-107); Glucose 123 mg/dL (75-100); Potassium 4.6 mmol/L (3.6-5.0); Sodium 133 mmol/L (137-145)
--- NOTE | 2017-06-12 19:08 | Event Note ---
Date: 06/12/17 Patient still with elevated WBC, not appropriate for port placement, will place PICC if needed for IV access. Will make NPO and discuss with primary
[2017-06-12] MEDS: D5NS 0.2% 1,000 ML IV SCH (20:14)
[2017-06-13] MEDS: BENADRYL IV PRN ×5 (03:50→22:10)
[2017-06-13] MEDS: DILAUDID IV PRN ×5 (03:50→22:10)
[2017-06-13] MEDS: D5NS 0.2% 1,000 ML IV SCH ×3 (04:12→22:09)
[2017-06-13 06:37] LABS: Hematocrit 21.5 % (35.5-45.6); Hemoglobin 7.6 gm/dl (11.8-15.2); Mean Corpuscular HGB Conc 35 % (32-34); Mean Corpuscular Hemoglobin 31 pg (28-32); Mean Corpuscular Volume 87 fl (84-94); Platelet Count 477 K/mm3 (140-440); Red Blood Count 2.46 M/mm3 (3.65-5.03)
[2017-06-13 06:41] LABS: Red Cell Distribution Width 22.2 % (13.2-15.2); White Blood Count 21.2 K/mm3 (4.5-11.0)
[2017-06-13 06:54] LABS: Alanine Aminotransferase 10 units/L (7-56); Albumin 2.9 g/dL (3.9-5); Albumin/Globulin Ratio 0.5 %; Alkaline Phosphatase 188 units/L (35-129); Anion Gap 16 mmol/L; BUN/Creatinine Ratio 27; Blood Urea Nitrogen 24 mg/dL (9-20); Calcium 8.8 mg/dL (8.4-10.2); Carbon Dioxide 22 mmol/L (22-30); Chloride 101.5 mmol/L (98-107); Glucose 114 mg/dL (75-100); Potassium 4.9 mmol/L (3.6-5.0); Sodium 135 mmol/L (137-145); Total Protein 8.2 g/dL (6.3-8.2)
[2017-06-13] MEDS: cefTRIAXone 2 GM in NACL 0.9% 20 ML IV SCH (08:04)
[2017-06-13 08:44] LABS: Basophils % (Manual) 0 % (0.0-1.8); Blastocytes % (Manual) 0 %
[2017-06-13 08:45] LABS: Anisocytosis 1+; Sickle Cells 1+; Target Cells Few
[2017-06-13 08:46] LABS: Diff Status Complete; Polychromasia Few
[2017-06-13] MEDS: NEURONTIN PO SCH ×2 (10:00→22:09)
[2017-06-13] MEDS: ZITHROMAX PO SCH (10:00)
--- NOTE | 2017-06-13 14:49 | Event Note ---
Date: 06/13/17 41 -year-old, admitted with sickle cell crisis, consultation because of hip pain and difficulty with walking. His pain is mostly in the groin, anterior thigh bilaterally. Symptoms started about 2 weeks ago. Noistory of trauma. No definite radicular symptoms. Patient is evaluated today, he is in a semiflexed position, refuses to move. He did not allow me to examine him as I attempted to examine him stating "pain". Is an MRI scan of the lumbar spine shows changes consistent with sickle cell disease. I believe his symptoms of groin and anterior thigh pain is arising from his hip joint, most likely from sickle cell crisis and possibly avascular necrosis which am unable to rule out. Recommend x-rays the pelvis, both hips to evaluate for possible AVN. X-rays are negative then he will need an MRI of the pelvis/hip. Definitive management will be based on stage early avascular necrosis if confirmed and the is no emergency. At this time I suggest that x-rays be obtained, pending the outcome of x-rays determine whether he'll need an MRI of the pelvis/hips to be done or not. Meantime recommended to continue with pain management, physical therapy for progressive ambulationrevent any contractures. Am unable to determine whether his positioning is secondary to contractures, or hip pain or both. I do not have anything more to offer this time.
--- NOTE | 2017-06-13 14:56 | Progress Note ---
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 The patient pain has been ongoing for 2-3 weeks worsening by the day was noted to have a leukocytosis of 28,000 and also anemia required 3 units packed red blood cell transfusion. Patient also noted to have iron overload and is to commence on Dexferol but awaiting port insertion. Sickle Cell crisis with generalized body pain Sickle Cell anemia Iron Overload SIRS Chronically Elevated Leukocytosis-Reactive per pathology review back in 2015 Left Hip Pain Lumber disc dessication per Radiology. L3-l5 Plan: * Continue supportive care * Transfused 3 units PRBC * Discussed with Vascular, Leukocytosis is chronically elevated all the way back to 2013. No bands, No Eos, No Band * Discontinue Abx at this time * Picc line placed for initiation of treatment of Iron overload * Gait support. * DVT/GI prophy-scd * Continue Pain control History Interval history: Patient seen and examined in no acute distress, still with generalized body pain. He denies any fever, nausea, vomiting diarrhea, fecal or urinary incontinence. Hospitalist Physical - Physical exam Narrative exam: VITAL SIGNS: Reviewed. GENERAL: The patient appeared lethargic, nonenlarged,. Vital signs as documented. HEAD: No signs of head trauma. Temporal wasting noted EYES: Pupils are equal. Extraocular motions intact. EARS: Hearing grossly intact. MOUTH: Oropharynx is normal. NECK: No adenopathy, no JVD. CHEST: Chest with clear breath sounds bilaterally. No wheezes, rales, or rhonchi. CARDIAC: Regular rate and rhythm. S1 and S2, without murmurs, gallops, or rubs. VASCULAR: No Edema. Peripheral pulses normal and equal in all extremities. ABDOMEN: Soft, without detectable tenderness. No sign of distention. No rebound or guarding, and no masses palpated. Bowel Sounds normal. MUSCULOSKELETAL: Good range of motion of all major joints. Extremities without clubbing, cyanosis or edema. NEUROLOGIC EXAM: Alert and oriented x 3. No focal sensory or strength deficits although apparently lethargic. Speech normal. Follows commands. PSYCHIATRIC: Mood normal. SKIN: No rash or lesions. - Constitutional Vitals: Temp Pulse Resp BP Pulse Ox 98.7 F 99 H 16 109/71 95 06/13/17 09:07 06/13/17 09:07 06/13/17 09:07 06/13/17 09:07 06/13/17 09:07 General appearance: Present: mild distress Results - Labs CBC & Chem 7: 06/13/17 05:53 06/13/17 05:53 Labs: Laboratory Last Values WBC 21.2 K/mm3 (4.5-11.0) H 06/13/17 05:53 RBC 2.46 M/mm3 (3.65-5.03) L 06/13/17 05:53 Hgb 7.6 gm/dl (11.8-15.2) L 06/13/17 05:53 Hct 21.5 % (35.5-45.6) L 06/13/17 05:53 MCV 87 fl (84-94) 06/13/17 05:53 MCH 31 pg (28-32) 06/13/17 05:53 MCHC 35 % (32-34) H 06/13/17 05:53 RDW 22.2 % (13.2-15.2) H 06/13/17 05:53 Plt Count 477 K/mm3 (140-440) H 06/13/17 05:53 Lymph % (Auto) 21.1 % (13.4-35.0) 06/12/17 15:43 [place] % (Auto) 10.4 % (0.0-7.3) H 06/12/17 15:43 Eos % (Auto) 6.3 % (0.0-4.3) H 06/12/17 15:43 Baso % (Auto) 0.8 % (0.0-1.8) 06/12/17 15:43 Lymph # 4.1 K/mm3 (1.2-5.4) 06/12/17 15:43 [place] # 2.0 K/mm3 (0.0-0.8) H 06/12/17 15:43 Eos # 1.2 K/mm3 (0.0-0.4) H 06/12/17 15:43 Baso # 0.2 K/mm3 (0.0-0.1) H 06/12/17 15:43 Add Manual Diff Complete 06/13/17 05:53 Total Counted 100 06/13/17 05:53 Seg Neutrophils % 61.4 % (40.0-70.0) 06/12/17 15:43 Seg Neuts % (Manual) 70.0 % (40.0-70.0) 06/13/17 05:53 Band Neutrophils % 2.0 % 06/13/17 05:53 Lymphocytes % (Manual) 14.0 % (13.4-35.0) 06/13/17 05:53 Reactive Lymphs % (Man) 0 % 06/13/17 05:53 Monocytes % (Manual) 11.0 % (0.0-7.3) H 06/13/17 05:53 Eosinophils % (Manual) 3.0 % (0.0-4.3) 06/13/17 05:53 Basophils % (Manual) 0 % (0.0-1.8) 06/13/17 05:53 Metamyelocytes % 0 % 06/13/17 05:53 Myelocytes % 0 % 06/13/17 05:53 Promyelocytes % 0 % 06/13/17 05:53 Blast Cells % 0 % 06/13/17 05:53 Nucleated RBC % Not Reportable 06/13/17 05:53 Seg Neutrophils # 12.0 K/mm3 (1.8-7.7) H 06/12/17 15:43 Seg Neutrophils # Man 14.8 K/mm3 (1.8-7.7) H 06/13/17 05:53 Band Neutrophils # 0.4 K/mm3 06/13/17 05:53 Lymphocytes # (Manual) 3.0 K/mm3 (1.2-5.4) 06/13/17 05:53 Abs React Lymphs (Man) 0.0 K/mm3 06/13/17 05:53 Monocytes # (Manual) 2.3 K/mm3 (0.0-0.8) H 06/13/17 05:53 Eosinophils # (Manual) 0.6 K/mm3 (0.0-0.4) H 06/13/17 05:53 Basophils # (Manual) 0.0 K/mm3 (0.0-0.1) 06/13/17 05:53 Metamyelocytes # 0.0 K/mm3 06/13/17 05:53 Myelocytes # 0.0 K/mm3 06/13/17 05:53 Promyelocytes # 0.0 K/mm3 06/13/17 05:53 Blast Cells # 0.0 K/mm3 06/13/17 05:53 WBC Morphology Not Reportable 06/13/17 05:53 Hypersegmented Neuts Not Reportable 06/13/17 05:53 Hyposegmented Neuts Not Reportable 06/13/17 05:53 Hypogranular Neuts Not Reportable 06/13/17 05:53 Smudge Cells Not Reportable 06/13/17 05:53 Toxic Granulation Not Reportable 06/13/17 05:53 Toxic Vacuolation Not Reportable 06/13/17 05:53 Dohle Bodies Not Reportable 06/13/17 05:53 Pelger-Huet Anomaly Not Reportable 06/13/17 05:53 Farrah Rods Not Reportable 06/13/17 05:53 Platelet Estimate Not Reportable 06/13/17 05:53 Clumped Platelets Not Reportable 06/13/17 05:53 Plt Clumps, EDTA Not Reportable 06/13/17 05:53 Large Platelets Not Reportable 06/13/17 05:53 Giant Platelets Not Reportable 06/13/17 05:53 Platelet Satelliting Not Reportable 06/13/17 05:53 Plt Morphology Comment Not Reportable 06/13/17 05:53 RBC Morphology Not Reportable 06/13/17 05:53 Dimorphic RBCs Not Reportable 06/13/17 05:53 Polychromasia Few 06/13/17 05:53 Hypochromasia Not Reportable 06/13/17 05:53 Poikilocytosis Not Reportable 06/13/17 05:53 Anisocytosis 1+ 06/13/17 05:53 Microcytosis Not Reportable 06/13/17 05:53 Macrocytosis Not Reportable 06/13/17 05:53 Spherocytes Not Reportable 06/13/17 05:53 Pappenheimer Bodies Not Reportable 06/13/17 05:53 Sickle Cells 1+ 06/13/17 05:53 Target Cells Few 06/13/17 05:53 Tear Drop Cells Not Reportable 06/13/17 05:53 Ovalocytes Not Reportable 06/13/17 05:53 Helmet Cells Not Reportable 06/13/17 05:53 [place] Bodies Not Reportable 06/13/17 05:53 [place] Rings Not Reportable 06/13/17 05:53 [place] Cells Not Reportable 06/13/17 05:53 Bite Cells Not Reportable 06/13/17 05:53 Crenated Cell Not Reportable 06/13/17 05:53 Elliptocytes Not Reportable 06/13/17 05:53 Acanthocytes (Spur) Not Reportable 06/13/17 05:53 Rouleaux Not Reportable 06/13/17 05:53 Hemoglobin C Crystals Not Reportable 06/13/17 05:53 Schistocytes Not Reportable 06/13/17 05:53 Malaria parasites Not Reportable 06/13/17 05:53 Percent Retic 8.83 % (0.78-2.58) H 06/07/17 15:49 Tom Bodies Not Reportable 06/13/17 05:53 Hem Pathologist Commnt No 06/13/17 05:53 PT 14.3 Sec. (12.2-14.9) 06/12/17 15:43 INR 1.06 (0.87-1.13) 06/12/17 15:43 Sodium 135 mmol/L (137-145) L 06/13/17 05:53 Potassium 4.9 mmol/L (3.6-5.0) 06/13/17 05:53 Chloride 101.5 mmol/L (98-107) 06/13/17 05:53 Carbon Dioxide 22 mmol/L (22-30) 06/13/17 05:53 Anion Gap 16 mmol/L 06/13/17 05:53 BUN 24 mg/dL (9-20) H 06/13/17 05:53 Creatinine 0.9 mg/dL (0.8-1.5) 06/13/17 05:53 Estimated GFR > 60 ml/min 06/13/17 05:53 BUN/Creatinine Ratio 27 % 06/13/17 05:53 Glucose 114 mg/dL (75-100) H 06/13/17 05:53 Calcium 8.8 mg/dL (8.4-10.2) 06/13/17 05:53 Iron 57 ug/dL (49-181) 06/10/17 19:46 TIBC 156 mcg/dL (250-450) L 06/10/17 19:46 Ferritin 9291.0 ng/mL (13.0-400.0) H 06/10/17 19:46 Total Bilirubin 1.60 mg/dL (0.1-1.2) H 06/13/17 05:53 AST 30 units/L (5-40) 06/13/17 05:53 ALT 10 units/L (7-56) 06/13/17 05:53 Alkaline Phosphatase 188 units/L (35-129) H 06/13/17 05:53 Total Protein 8.2 g/dL (6.3-8.2) 06/13/17 05:53 Albumin 2.9 g/dL (3.9-5) L 06/13/17 05:53 Albumin/Globulin Ratio 0.5 % 06/13/17 05:53 Urine Color Yellow (Yellow) 06/10/17 01:45 Urine Turbidity Clear (Clear) 06/10/17 01:45 Urine pH 6.0 (5.0-7.0) 06/10/17 01:45 Ur Specific [place] 1.011 (1.003-1.030) 06/10/17 01:45 Urine Protein 100 mg/dl mg/dL (Negative) 06/10/17 01:45 Urine Glucose (UA) Neg mg/dL (Negative) 06/10/17 01:45 Urine Ketones Neg mg/dL (Negative) 06/10/17 01:45 Urine Blood Sm (Negative) 06/10/17 01:45 Urine Nitrite Neg (Negative) 06/10/17 01:45 Urine Bilirubin Neg (Negative) 06/10/17 01:45 Urine Urobilinogen < 2.0 mg/dL (<2.0) 06/10/17 01:45 Ur Leukocyte Esterase Neg (Negative) 06/10/17 01:45 Urine WBC (Auto) < 1.0 /HPF (0.0-6.0) 06/10/17 01:45 Urine RBC (Auto) 4.0 /HPF (0.0-6.0) 06/10/17 01:45 Blood Type A POSITIVE 06/07/17 18:10 Antibody Screen Negative 06/07/17 18:10
[2017-06-13 15:17] LABS: INR 1.03 (0.87-1.13)
--- NOTE | 2017-06-13 15:34 | XRay Report ---
AP PELVIS: HISTORY: Avascular necrosis. There is mild osteopenia. Mild osteoarthritic changes are identified the SI joints and bilateral hip joints. There is no evidence for fracture, dislocation, bone lesion or definitive findings of avascular necrosis. Soft tissue calcifications lateral to the greater trochanter of the right hip is noted and probably related to previous trauma. IMPRESSION: Chronic findings as outlined above. No obvious findings of avascular necrosis on x-ray.
--- NOTE | 2017-06-13 15:41 | Event Note ---
Date: 06/13/17 The slabbing machine operator schedule is full, and we will not be able to get to this pt's PICC line today. Will reschedule Picc line for tomorrow.
--- NOTE | 2017-06-13 21:53 | Progress Note ---
Assessment and Plan - Patient Problems (1) Anemia Current Visit: No Status: Acute Qualifiers: Anemia type: unspecified type Qualified Code(s): D64.9 - Anemia, unspecified Plan to address problem: awaiting blood. Transfused already. monitor labs. (2) Dehydration Current Visit: No Status: Acute Plan to address problem: Hydration. (3) Iron overload due to repeated red blood cell transfusions Current Visit: No Status: Chronic Plan to address problem: Will attempt Desferol tx. after port placement. will proceed with the current line. awaiting results. see notes. will plan out patient. (4) Leukocytosis Current Visit: Yes Status: Acute Plan to address problem: This is probably reactive process, and not infectious, so port placement should proceed.blood culture negative. this is not infection. see notes. Subjective Date of service: 06/13/17 Principal diagnosis: SC pain crisis Interval history: Patient seen/examined, resting in bed, his mom at the bed side, they both related to me what happened last night with his rocephin push.. MRI/CXR/abd xray reviewed. L3-L5 decication.The could also be neuropathic pain, as patient is unable to walk, and did not want a bed side commode, instead, he will use a walker. Patient seen, resting in bed, labs reviewed, case d/w patient.No blood yet. patient seen/examined, resting in bed, labs reviewed, h/h improved. Patient seen/examined, resting ok in bed, VSS, afebrile. labs reviewed, case d/ w patient. Patient seen/examined, resting in bed, c/o did not sleep well last night.Still having difficulty ambulating.Will ask orthopedics to see. hHe will also need the port placed, as the elevated wbc is non infection related. Patient seen/examined, notes reviewed, case d/w patient and his mom.Interaction with orthopedics did not go well as per patient.Will do out patient w/up. Once picc line placed, patient lay be d/c. he has an important apt on the 6th that he can not afford to miss, as per patient/mom.He may need oral ABX for home. Objective - Constitutional Vitals: Vital Signs - 12hr 06/13/17 06/13/17 06/13/17 16:01 18:11 21:38 Temperature 98.6 F 99.3 F Pulse Rate 94 H 105 H Respiratory 16 20 16 Rate Blood Pressure 108/74 98/64 O2 Sat by Pulse 99 93 Oximetry General appearance: Present: mild distress, well-nourished - EENT Eyes: PERRL, EOM intact ENT: hearing intact, clear oral mucosa Ears: bilateral: normal - Neck Neck: supple, normal ROM - Respiratory Respiratory effort: normal Respiratory: bilateral: CTA - Cardiovascular Rhythm: regular Heart Sounds: Present: S1 & S2. Absent: gallop, rub Extremities: pulses intact, No edema, normal color, Full ROM - Gastrointestinal General gastrointestinal: Present: soft, non-tender, non-distended, normal bowel sounds Rectal Exam: deferred - Genitourinary Male genitourinary: deferred - Integumentary Integumentary: clear, warm, dry - Musculoskeletal Musculoskeletal: 1, strength equal bilaterally - Neurologic Neurologic: moves all extremities - Psychiatric Psychiatric: memory intact, appropriate mood/affect, intact judgment & insight - Labs CBC & Chem 7: 06/13/17 05:53 06/13/17 05:53 Labs: Abnormal lab results 06/13/17 06/13/17 Range/Units 05:53 05:53 WBC 21.2 H (4.5-11.0) K/mm3 RBC 2.46 L (3.65-5.03) M/mm3 Hgb 7.6 L (11.8-15.2) gm/dl Hct 21.5 L (35.5-45.6) % MCHC 35 H (32-34) % RDW 22.2 H (13.2-15.2) % Plt Count 477 H (140-440) K/mm3 Monocytes % (Manual) 11.0 H (0.0-7.3) % Seg Neutrophils # Man 14.8 H (1.8-7.7) K/mm3 Monocytes # (Manual) 2.3 H (0.0-0.8) K/mm3 Eosinophils # (Manual) 0.6 H (0.0-0.4) K/mm3 Sodium 135 L (137-145) mmol/L BUN 24 H (9-20) mg/dL Glucose 114 H (75-100) mg/dL Total Bilirubin 1.60 H (0.1-1.2) mg/dL Alkaline Phosphatase 188 H (35-129) units/L Albumin 2.9 L (3.9-5) g/dL
[2017-06-14] MEDS: BENADRYL IV PRN ×5 (02:16→20:52)
[2017-06-14] MEDS: DILAUDID IV PRN ×5 (02:16→20:53)
[2017-06-14 05:21] LABS: Hematocrit 20.9 % (35.5-45.6); Hemoglobin 7.2 gm/dl (11.8-15.2); Mean Corpuscular HGB Conc 34 % (32-34); Mean Corpuscular Hemoglobin 30 pg (28-32); Mean Corpuscular Volume 88 fl (84-94); Platelet Count 469 K/mm3 (140-440); Red Blood Count 2.37 M/mm3 (3.65-5.03)
[2017-06-14 05:24] LABS: Red Cell Distribution Width 21.6 % (13.2-15.2); White Blood Count 21.6 K/mm3 (4.5-11.0)
[2017-06-14 05:46] LABS: Alanine Aminotransferase 10 units/L (7-56); Albumin 2.8 g/dL (3.9-5); Albumin/Globulin Ratio 0.5 %; Alkaline Phosphatase 171 units/L (35-129); Anion Gap 18 mmol/L; BUN/Creatinine Ratio 24; Blood Urea Nitrogen 22 mg/dL (9-20); Calcium 8.8 mg/dL (8.4-10.2); Carbon Dioxide 21 mmol/L (22-30); Glucose 114 mg/dL (75-100); Potassium 4.2 mmol/L (3.6-5.0); Sodium 135 mmol/L (137-145); Total Protein 7.9 g/dL (6.3-8.2)
[2017-06-14] MEDS: D5NS 0.2% 1,000 ML IV SCH ×3 (06:07→23:45)
[2017-06-14 06:25] LABS: Basophils % (Manual) 0 % (0.0-1.8); Blastocytes % (Manual) 0 %
[2017-06-14 06:26] LABS: Anisocytosis 1+; Diff Status Complete; Platelet Estimate Consistent w Auto; Sickle Cells 1+; Target Cells 1+
[2017-06-14] MEDS ORDERED: VERSED ONE (08:31)
[2017-06-14] MEDS ORDERED: HEPARIN/NS 5000 UNIT/500ML(CATH LAB) 500 ML IR ONE (08:31)
[2017-06-14] MEDS ORDERED: SUBLIMAZE ONE (08:32)
[2017-06-14] MEDS ORDERED: NACL 0.9% 250ML 250 ML ONE (08:44)
[2017-06-14] MEDS: XYLOCAINE 2% INFILTRATI ONE ×2 (08:55→09:03)
[2017-06-14] MEDS: NEURONTIN PO SCH ×2 (11:45→21:00)
--- NOTE | 2017-06-14 12:27 | Operative Report ---
Operative Report Operative Report: Procedure: Placement of a left upper extremity PICC line Date of Procedure: 06/14/2017 History/Indication: 41-year-old male with sickle cell crisis in need of venous access. Physician: Eugenie Denson MD Technique/Procedural Details: The patient was placed in the supine position and prepped and draped in the usual sterile fashion. A timeout was performed. Local anesthetic was administered. Under continuous ultrasound guidance, a 21-gauge needle was advanced into the left brachial vein. An 018 wire was advanced in the used to estimate the length of the PICC line. They peel-away sheath was placed, and the PICC line was cut to the appropriate length. The line was then advanced through the peel-away sheath, until the tip was at the cavoatrial junction. Each lumen was aspirated and flushed. Sterile dressings were placed, and the patient was transported from the room without immediate complication. Discussion: The left brachial vein is large, patent, and compressible. There is successful placement of a left upper extremity PICC line, measuring 46 cm. The new catheter aspirated and flushed well and is ready for use. Specimen: None EBL: <5 cc
--- NOTE | 2017-06-14 12:40 | Progress Note ---
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 Sickle Cell crisis continue on IV fluid Pain controlled with Dilaudid Hematology consulted Supportive care Sickle Cell anemia Transfused 3 units PRBC up today. Closely monitor H&H Picc line placed today for Iron overload therapy SIRS Patient chronically elevated Leukocytosis-Reactive since 2013 Completed IV antibiotic treatment Left Hip Pain Lumber disc dessication per Radiology. L3-l5 Continue gait support. DVT prophylaxis SCD History Interval history: Patient Hospitalist Physical - Constitutional Vitals: Temp Pulse Resp BP Pulse Ox 98.9 F 92 H 18 99/61 92 06/14/17 07:49 06/14/17 07:49 06/14/17 07:49 06/14/17 07:49 06/14/17 07:49 General appearance: Present: mild distress, well-nourished Results - Labs CBC & Chem 7: 06/14/17 05:01 06/14/17 05:01 Labs: Laboratory Last Values WBC 21.6 K/mm3 (4.5-11.0) H 06/14/17 05:01 RBC 2.37 M/mm3 (3.65-5.03) L 06/14/17 05:01 Hgb 7.2 gm/dl (11.8-15.2) L 06/14/17 05:01 Hct 20.9 % (35.5-45.6) L 06/14/17 05:01 MCV 88 fl (84-94) 06/14/17 05:01 MCH 30 pg (28-32) 06/14/17 05:01 MCHC 34 % (32-34) 06/14/17 05:01 RDW 21.6 % (13.2-15.2) H 06/14/17 05:01 Plt Count 469 K/mm3 (140-440) H 06/14/17 05:01 Lymph % (Auto) 21.1 % (13.4-35.0) 06/12/17 15:43 Oliver % (Auto) 10.4 % (0.0-7.3) H 06/12/17 15:43 Eos % (Auto) 6.3 % (0.0-4.3) H 06/12/17 15:43 Baso % (Auto) 0.8 % (0.0-1.8) 06/12/17 15:43 Lymph # Fishing Guide 06/14/17 05:01 Oliver # 2.0 K/mm3 (0.0-0.8) H 06/12/17 15:43 Eos # 1.2 K/mm3 (0.0-0.4) H 06/12/17 15:43 Baso # 0.2 K/mm3 (0.0-0.1) H 06/12/17 15:43 Add Manual Diff Complete 06/14/17 05:01 Total Counted 100 06/14/17 05:01 Seg Neutrophils % 61.4 % (40.0-70.0) 06/12/17 15:43 Seg Neuts % (Manual) 67.0 % (40.0-70.0) 06/14/17 05:01 Band Neutrophils % 0 % 06/14/17 05:01 Lymphocytes % (Manual) 17.0 % (13.4-35.0) 06/14/17 05:01 Reactive Lymphs % (Man) 0 % 06/14/17 05:01 Monocytes % (Manual) 12.0 % (0.0-7.3) H 06/14/17 05:01 Eosinophils % (Manual) 4.0 % (0.0-4.3) 06/14/17 05:01 Basophils % (Manual) 0 % (0.0-1.8) 06/14/17 05:01 Metamyelocytes % 0 % 06/14/17 05:01 Myelocytes % 0 % 06/14/17 05:01 Promyelocytes % 0 % 06/14/17 05:01 Blast Cells % 0 % 06/14/17 05:01 Nucleated RBC % 1.0 % (0.0-0.9) H 06/14/17 05:01 Seg Neutrophils # 12.0 K/mm3 (1.8-7.7) H 06/12/17 15:43 Seg Neutrophils # Man 14.5 K/mm3 (1.8-7.7) H 06/14/17 05:01 Band Neutrophils # 0.0 K/mm3 06/14/17 05:01 Lymphocytes # (Manual) 3.7 K/mm3 (1.2-5.4) 06/14/17 05:01 Abs React Lymphs (Man) 0.0 K/mm3 06/14/17 05:01 Monocytes # (Manual) 2.6 K/mm3 (0.0-0.8) H 06/14/17 05:01 Eosinophils # (Manual) 0.9 K/mm3 (0.0-0.4) H 06/14/17 05:01 Basophils # (Manual) 0.0 K/mm3 (0.0-0.1) 06/14/17 05:01 Metamyelocytes # 0.0 K/mm3 06/14/17 05:01 Myelocytes # 0.0 K/mm3 06/14/17 05:01 Promyelocytes # 0.0 K/mm3 06/14/17 05:01 Blast Cells # 0.0 K/mm3 06/14/17 05:01 WBC Morphology Not Reportable 06/14/17 05:01 Hypersegmented Neuts Not Reportable 06/14/17 05:01 Hyposegmented Neuts Not Reportable 06/14/17 05:01 Hypogranular Neuts Not Reportable 06/14/17 05:01 Smudge Cells Not Reportable 06/14/17 05:01 Toxic Granulation Not Reportable 06/14/17 05:01 Toxic Vacuolation Not Reportable 06/14/17 05:01 Dohle Bodies Not Reportable 06/14/17 05:01 Pelger-Huet Anomaly Not Reportable 06/14/17 05:01 Farrah Rods Not Reportable 06/14/17 05:01 Platelet Estimate Consistent w auto 06/14/17 05:01 Clumped Platelets Not Reportable 06/14/17 05:01 Plt Clumps, EDTA Not Reportable 06/14/17 05:01 Large Platelets Not Reportable 06/14/17 05:01 Giant Platelets Not Reportable 06/14/17 05:01 Platelet Satelliting Not Reportable 06/14/17 05:01 Plt Morphology Comment Not Reportable 06/14/17 05:01 RBC Morphology Not Reportable 06/14/17 05:01 Dimorphic RBCs Not Reportable 06/14/17 05:01 Polychromasia Not Reportable 06/14/17 05:01 Hypochromasia Not Reportable 06/14/17 05:01 Poikilocytosis Not Reportable 06/14/17 05:01 Anisocytosis 1+ 06/14/17 05:01 Microcytosis Not Reportable 06/14/17 05:01 Macrocytosis Not Reportable 06/14/17 05:01 Spherocytes Not Reportable 06/14/17 05:01 Pappenheimer Bodies Not Reportable 06/14/17 05:01 Sickle Cells 1+ 06/14/17 05:01 Target Cells 1+ 06/14/17 05:01 Tear Drop Cells Not Reportable 06/14/17 05:01 Ovalocytes Not Reportable 06/14/17 05:01 Helmet Cells Not Reportable 06/14/17 05:01 [place] Bodies Not Reportable 06/14/17 05:01 [place] Rings Not Reportable 06/14/17 05:01 [place] Cells Not Reportable 06/14/17 05:01 Bite Cells Not Reportable 06/14/17 05:01 Crenated Cell Not Reportable 06/14/17 05:01 Elliptocytes Not Reportable 06/14/17 05:01 Acanthocytes (Spur) Not Reportable 06/14/17 05:01 Rouleaux Not Reportable 06/14/17 05:01 Hemoglobin C Crystals Not Reportable 06/14/17 05:01 Schistocytes Not Reportable 06/14/17 05:01 Malaria parasites Not Reportable 06/14/17 05:01 Percent Retic 8.83 % (0.78-2.58) H 06/07/17 15:49 Tom Bodies Not Reportable 06/14/17 05:01 Hem Pathologist Commnt No 06/14/17 05:01 PT 14.0 Sec. (12.2-14.9) 06/13/17 14:48 INR 1.03 (0.87-1.13) 06/13/17 14:48 Sodium 135 mmol/L (137-145) L 06/14/17 05:01 Potassium 4.2 mmol/L (3.6-5.0) 06/14/17 05:01 Chloride 100.0 mmol/L (98-107) 06/14/17 05:01 Carbon Dioxide 21 mmol/L (22-30) L 06/14/17 05:01 Anion Gap 18 mmol/L 06/14/17 05:01 BUN 22 mg/dL (9-20) H 06/14/17 05:01 Creatinine 0.9 mg/dL (0.8-1.5) 06/14/17 05:01 Estimated GFR > 60 ml/min 06/14/17 05:01 BUN/Creatinine Ratio 24 % 06/14/17 05:01 Glucose 114 mg/dL (75-100) H 06/14/17 05:01 Calcium 8.8 mg/dL (8.4-10.2) 06/14/17 05:01 Iron 57 ug/dL (49-181) 06/10/17 19:46 TIBC 156 mcg/dL (250-450) L 06/10/17 19:46 Ferritin 9291.0 ng/mL (13.0-400.0) H 06/10/17 19:46 Total Bilirubin 1.60 mg/dL (0.1-1.2) H 06/14/17 05:01 AST 27 units/L (5-40) 06/14/17 05:01 ALT 10 units/L (7-56) 06/14/17 05:01 Alkaline Phosphatase 171 units/L (35-129) H 06/14/17 05:01 Total Protein 7.9 g/dL (6.3-8.2) 06/14/17 05:01 Albumin 2.8 g/dL (3.9-5) L 06/14/17 05:01 Albumin/Globulin Ratio 0.5 % 06/14/17 05:01 Urine Color Yellow (Yellow) 06/10/17 01:45 Urine Turbidity Clear (Clear) 06/10/17 01:45 Urine pH 6.0 (5.0-7.0) 06/10/17 01:45 Ur Specific [place] 1.011 (1.003-1.030) 06/10/17 01:45 Urine Protein 100 mg/dl mg/dL (Negative) 06/10/17 01:45 Urine Glucose (UA) Neg mg/dL (Negative) 06/10/17 01:45 Urine Ketones Neg mg/dL (Negative) 06/10/17 01:45 Urine Blood Sm (Negative) 06/10/17 01:45 Urine Nitrite Neg (Negative) 06/10/17 01:45 Urine Bilirubin Neg (Negative) 06/10/17 01:45 Urine Urobilinogen < 2.0 mg/dL (<2.0) 06/10/17 01:45 Ur Leukocyte Esterase Neg (Negative) 06/10/17 01:45 Urine WBC (Auto) < 1.0 /HPF (0.0-6.0) 06/10/17 01:45 Urine RBC (Auto) 4.0 /HPF (0.0-6.0) 06/10/17 01:45 Blood Type A POSITIVE 06/07/17 18:10 Antibody Screen Negative 06/07/17 18:10
[2017-06-14] MEDS ORDERED: NON-FORMULARY (Oxycodone Hcl/Acetaminophen [Percocet 10/325 Mg] 1 EACH) PO PRN (16:42)
[2017-06-14] MEDS ORDERED: PERCOCET 5/325 PO PRN ×2 (16:45→17:00)
--- NOTE | 2017-06-14 19:01 | Progress Note ---
Assessment and Plan - Patient Problems (1) Anemia Current Visit: No Status: Acute Qualifiers: Anemia type: unspecified type Qualified Code(s): D64.9 - Anemia, unspecified Plan to address problem: awaiting blood. Transfused already. monitor labs. (2) Dehydration Current Visit: No Status: Acute Plan to address problem: Hydration. (3) Iron overload due to repeated red blood cell transfusions Current Visit: No Status: Chronic Plan to address problem: Will attempt Desferol tx. after port placement. will proceed with the current line. awaiting results. see notes. will plan out patient. (4) Leukocytosis Current Visit: Yes Status: Acute Plan to address problem: This is probably reactive process, and not infectious, so port placement should proceed.blood culture negative. this is not infection. see notes. Subjective Date of service: 06/14/17 Principal diagnosis: SC pain crisis Interval history: Patient seen/examined, resting in bed, his mom at the bed side, they both related to me what happened last night with his rocephin push.. MRI/CXR/abd xray reviewed. L3-L5 decication.The could also be neuropathic pain, as patient is unable to walk, and did not want a bed side commode, instead, he will use a walker. Patient seen, resting in bed, labs reviewed, case d/w patient.No blood yet. patient seen/examined, resting in bed, labs reviewed, h/h improved. Patient seen/examined, resting ok in bed, VSS, afebrile. labs reviewed, case d/ w patient. Patient seen/examined, resting in bed, c/o did not sleep well last night.Still having difficulty ambulating.Will ask orthopedics to see. hHe will also need the port placed, as the elevated wbc is non infection related. Patient seen/examined, notes reviewed, case d/w patient and his mom.Interaction with orthopedics did not go well as per patient.Will do out patient w/up. Once picc line placed, patient lay be d/c. he has an important apt on the 6th that he can not afford to miss, as per patient/mom.He may need oral ABX for home. Patient seen /examined, resting in bed, at the time seen.Picc line placed. Patient was to be d/c following the picc. Objective - Constitutional Vitals: Vital Signs - 12hr 06/14/17 06/14/17 07:49 16:25 Temperature 98.9 F 98.9 F Pulse Rate 92 H 100 H Respiratory 18 18 Rate Blood Pressure 99/61 118/81 O2 Sat by Pulse 92 94 Oximetry General appearance: Present: no acute distress - EENT Eyes: PERRL, EOM intact ENT: hearing intact, clear oral mucosa Ears: bilateral: normal - Neck Neck: supple, normal ROM - Respiratory Respiratory effort: normal Respiratory: bilateral: CTA - Breasts Breasts: deferred - Cardiovascular Rhythm: regular Heart Sounds: Present: S1 & S2. Absent: gallop, rub Extremities: pulses intact, No edema, normal color, Full ROM - Gastrointestinal General gastrointestinal: Present: soft, non-tender, non-distended, normal bowel sounds Rectal Exam: deferred - Genitourinary Male genitourinary: deferred - Integumentary Integumentary: clear, warm, dry - Musculoskeletal Musculoskeletal: 1, strength equal bilaterally - Neurologic Neurologic: moves all extremities - Psychiatric Psychiatric: memory intact, appropriate mood/affect, intact judgment & insight - Labs CBC & Chem 7: 06/14/17 05:01 06/14/17 05:01 Labs: Abnormal lab results 06/14/17 06/14/17 Range/Units 05:01 05:01 WBC 21.6 H (4.5-11.0) K/mm3 RBC 2.37 L (3.65-5.03) M/mm3 Hgb 7.2 L (11.8-15.2) gm/dl Hct 20.9 L (35.5-45.6) % RDW 21.6 H (13.2-15.2) % Plt Count 469 H (140-440) K/mm3 Monocytes % (Manual) 12.0 H (0.0-7.3) % Nucleated RBC % 1.0 H (0.0-0.9) % Seg Neutrophils # Man 14.5 H (1.8-7.7) K/mm3 Monocytes # (Manual) 2.6 H (0.0-0.8) K/mm3 Eosinophils # (Manual) 0.9 H (0.0-0.4) K/mm3 Sodium 135 L (137-145) mmol/L Carbon Dioxide 21 L (22-30) mmol/L BUN 22 H (9-20) mg/dL Glucose 114 H (75-100) mg/dL Total Bilirubin 1.60 H (0.1-1.2) mg/dL Alkaline Phosphatase 171 H (35-129) units/L Albumin 2.8 L (3.9-5) g/dL
[2017-06-15] MEDS: BENADRYL IV PRN ×3 (01:12→10:38)
[2017-06-15] MEDS: DILAUDID IV PRN ×3 (01:12→10:38)
[2017-06-15] MEDS: D5NS 0.2% 1,000 ML IV SCH (06:39)
[2017-06-15] MEDS: ZOFRAN IV PRN (06:39)
[2017-06-15 07:09] LABS: Mean Corpuscular HGB Conc 34 % (32-34); Mean Corpuscular Hemoglobin 30 pg (28-32); Mean Corpuscular Volume 88 fl (84-94); Platelet Count 432 K/mm3 (140-440); Red Blood Count 2.01 M/mm3 (3.65-5.03)
[2017-06-15 07:29] LABS: Red Cell Distribution Width 21.4 % (13.2-15.2); White Blood Count 20.8 K/mm3 (4.5-11.0)
[2017-06-15 07:33] LABS: Hematocrit 17.6 % (35.5-45.6)
[2017-06-15 08:24] VITALS: BP 107/70
[2017-06-15 08:48] LABS: Anisocytosis 1+; Basophils % (Manual) 0 % (0.0-1.8); Blastocytes % (Manual) 0 %; Polychromasia 1+; Sickle Cells 1+
[2017-06-15 08:49] LABS: Diff Status Complete; Target Cells Few
--- NOTE | 2017-06-15 09:36 | Progress Note ---
Assessment and Plan - Patient Problems (1) Anemia Current Visit: No Status: Acute Qualifiers: Anemia type: unspecified type Qualified Code(s): D64.9 - Anemia, unspecified Plan to address problem: awaiting blood. Transfused already. monitor labs. (2) Dehydration Current Visit: No Status: Acute Plan to address problem: Hydration. (3) Iron overload due to repeated red blood cell transfusions Current Visit: No Status: Chronic Plan to address problem: Will attempt Desferol tx. after port placement. will proceed with the current line. awaiting results. see notes. will plan out patient. (4) Leukocytosis Current Visit: Yes Status: Acute Plan to address problem: This is probably reactive process, and not infectious, so port placement should proceed.blood culture negative. this is not infection. see notes. Subjective Date of service: 06/15/17 Principal diagnosis: SC pain crisis Interval history: Patient seen/examined, resting in bed, his mom at the bed side, they both related to me what happened last night with his rocephin push.. MRI/CXR/abd xray reviewed. L3-L5 decication.The could also be neuropathic pain, as patient is unable to walk, and did not want a bed side commode, instead, he will use a walker. Patient seen, resting in bed, labs reviewed, case d/w patient.No blood yet. patient seen/examined, resting in bed, labs reviewed, h/h improved. Patient seen/examined, resting ok in bed, VSS, afebrile. labs reviewed, case d/ w patient. Patient seen/examined, resting in bed, c/o did not sleep well last night.Still having difficulty ambulating.Will ask orthopedics to see. hHe will also need the port placed, as the elevated wbc is non infection related. Patient seen/examined, notes reviewed, case d/w patient and his mom.Interaction with orthopedics did not go well as per patient.Will do out patient w/up. Once picc line placed, patient lay be d/c. he has an important apt on the 6th that he can not afford to miss, as per patient/mom.He may need oral ABX for home. Patient seen /examined, resting in bed, at the time seen.Picc line placed. Patient was to be d/c following the picc. Patient seen/examined, resting in bed, no acute issues at this time, he will need to be d/c this am. Objective - Constitutional Vitals: Vital Signs - 12hr 06/15/17 07:57 Temperature 99.3 F Pulse Rate 97 H Respiratory 20 Rate Blood Pressure 107/70 O2 Sat by Pulse 92 Oximetry General appearance: Present: no acute distress, well-nourished - EENT Eyes: PERRL, EOM intact ENT: hearing intact, clear oral mucosa Ears: bilateral: normal - Neck Neck: supple, normal ROM - Respiratory Respiratory effort: normal Respiratory: bilateral: CTA - Cardiovascular Rhythm: regular Heart Sounds: Present: S1 & S2. Absent: gallop, rub Extremities: pulses intact, No edema, normal color, Full ROM - Gastrointestinal General gastrointestinal: Present: soft, non-tender, non-distended, normal bowel sounds Rectal Exam: deferred - Genitourinary Male genitourinary: deferred - Integumentary Integumentary: clear, warm, dry - Musculoskeletal Musculoskeletal: 1, strength equal bilaterally - Neurologic Neurologic: moves all extremities - Psychiatric Psychiatric: memory intact, appropriate mood/affect, intact judgment & insight - Labs CBC & Chem 7: 06/15/17 06:35 06/14/17 05:01 Labs: Abnormal lab results 06/15/17 Range/Units 06:35 WBC 20.8 H (4.5-11.0) K/mm3 RBC 2.01 L (3.65-5.03) M/mm3 Hgb 6.0 L (11.8-15.2) gm/dl Hct 17.6 L* (35.5-45.6) % RDW 21.4 H (13.2-15.2) % Seg Neuts % (Manual) 73.0 H (40.0-70.0) % Monocytes % (Manual) 9.0 H (0.0-7.3) % Seg Neutrophils # Man 15.2 H (1.8-7.7) K/mm3 Monocytes # (Manual) 1.9 H (0.0-0.8) K/mm3 Eosinophils # (Manual) 0.6 H (0.0-0.4) K/mm3
[2017-06-15] MEDS ORDERED: FOLVITE PO SCH (10:00)
[2017-06-15] MEDS ORDERED: XARELTO PO SCH (10:00)
[2017-06-15] MEDS: NEURONTIN PO SCH (10:39)
--- NOTE | 2017-06-15 13:31 | Vascular Lab Report ---
MISCELLANEOUS VESSEL IDENTIFICATION: COMMENTS ON THE SCAN: The left brachial vein was identified and under real-time ultrasound guidance was cannulated. IMPRESSION: Successful ultrasound guided vein cannulation.
--- NOTE | 2017-06-15 16:39 | Discharge Summary ---
Providers - Providers Date of Admission: 06/07/17 15:13 Date of discharge: 06/15/17 Attending physician: MOI POWELL 06/07/17 15:16 Consult to Interventional Radiology [CONS] Routine Consulting Provider: CRISTOPHER HOLGUIN Reason For Exam: INFUSAPORT PLACEMENT FOR TREATMENT. Place consult to:: MAGAN Garcia Notified:: JADE Phone number called:: IN HOUSE Was contact made?: Yes If yes, spoke with:: JADE Time called:: 16:12 Comment:: BRITTNEY NOTIFIED 06/07/17 16:42 Consult to Dietitian/Nutrition [CONS] Routine Physician Instructions: Reason For Exam: Reason for Consult: Poor oral intake Physical Therapy Evaluation and Treat [CONS] Routine Comment: Reason For Exam: hips hurting problems walking 06/08/17 10:16 Consult to Physician [CONS] Routine Consulting Provider: ACACIA SANDRA Reason For Exam: SICKLE CELL CRISIS Place consult to:: DR. SANDRA Notified:: . Phone number called:: [phone] Was contact made?: Yes If yes, spoke with:: DEBORAH Time called:: 10:19 Comment:: DR. SANDRA AWARE OF CONSULT. 06/12/17 15:51 Consult to Physician [CONS] Routine Consulting Provider: MILLIE LOCKHART V Reason For Exam: B/L hip pain/unable to ambulate. Place consult to:: DR. LOCKHART Notified:: ANSWERING SERVICE Phone number called:: [phone] Was contact made?: Yes Time called:: 16:50 Comment:: CONSULT COMPLETED - ELSY 06/12/17 15:54 Consult to Physician [CONS] Routine Consulting Provider: CRISTOPHER HOLGUIN Reason For Exam: port placement. Place consult to:: DR. HOLGUIN Notified:: DR. HOLGUIN Was contact made?: Yes If yes, spoke with:: DR. HOLGUIN Time called:: 16:42 Comment:: CONSULT COMPLETED - ELSY Primary care physician: ACACIA SANDRA Hospitalization Condition: Stable Hospital course: Patient is a 41-year-old male with history of sickle cell disease and anemia related to sickle cell who presents to the hospital with complaints of generalized pain and also difficulty with ambulation. Sickle Cell crisis continue on IV fluid Pain controlled with Dilaudid Hematology consulted Supportive care Sickle Cell anemia Transfused 3 units PRBC up today. Closely monitor H&H Picc line placed today for Iron overload therapy SIRS Patient chronically elevated Leukocytosis-Reactive since 2013 Completed IV antibiotic treatment Left Hip Pain Lumber disc dessication per Radiology. L3-l5 Continue gait support. DVT prophylaxis SCD "06/15/17 13:15 - Nurse Note by JACQUES TORRES Num: [id number] : 1975 Patient Age: 41 Nurse called and talked to Acacia Merchant concerning patient picc-line left upper arm. MD Flores order to leave picc-line inserted and he will manage patient picc-line as out-patient. Initialized on 06/15/17 13:15 - END OF NOTE 06/15/17 11:34 - Nurse Note by JACQUES TORRES Accbhumi Num: [id number] : 1975 Patient Age: 41 Mother spoke to Acacia Chaves concerning patient H&H. The patient mother and Kash Graves consenting to be discharged for an appointment and then going to [place] for outpatient for blood transfusion after appointment. Nurse will notify MD Powell. Initialized on 06/15/17 11:34 - END OF NOTE" Disposition: DC-01 TO HOME OR SELFCARE Time spent for discharge: 36 minutes Core Measure Documentation - Palliative Care Palliative Care/ Comfort Measures: Not Applicable - Core Measures Any of the following diagnoses?: none - VTE Discharge Requirements Deep Vein Thrombosis/Pulmonary Embolism Present on Admission: No Has pt received <5 days of overlap therapy or INR<2.0: No Anticoagulant overlap therapy prescribed at discharge: No Contraindication No Overlap Therapy order at DC: Not Indicated Exam - Constitutional Vitals: Temp Pulse Resp BP Pulse Ox 99.3 F 97 H 20 107/70 92 06/15/17 07:57 06/15/17 07:57 06/15/17 10:38 06/15/17 07:57 06/15/17 07:57 General appearance: Present: no acute distress - EENT Eyes: Present: PERRL, EOM intact ENT: hearing intact, clear oral mucosa - Neck Neck: Present: supple, normal ROM - Respiratory Respiratory effort: normal Respiratory: bilateral: CTA - Cardiovascular Rhythm: regular Heart Sounds: Present: S1 & S2 - Extremities Extremities: No edema - Abdominal General gastrointestinal: Present: soft, non-tender, non-distended, normal bowel sounds - Musculoskeletal Musculoskeletal: strength equal bilaterally - Psychiatric Psychiatric: appropriate mood/affect - Neurologic Neurologic: CNII-XII intact, no focal deficits, moves all extremities - Allied Health Allied health notes reviewed: nursing, case management Plan Activity: other (no strenous activity until cleared by pcp) Follow up with: ACACIA SANDRA DO [Primary Care Provider] - 7 Days
--- NOTE | 2017-07-08 08:13 | Query- SIRS ---
Brooke Lloyd Date:___07/08/17 Dermatology Nurse/CDS:____Rohit Phone#:__[phone] Exercise your independent professional judgment when responding to query. Questions asked do not imply a particular answer is desired or expected. We greatly appreciate your clarification on this issue. Clinical Documentation States: 42 year old male was admitted on 06/07/17 The discharge summary (Dr. Oviedo) states " Patient is a 41-year-old male with history of sickle cell disease and anemia related to sickle cell who presents to the hospital with complaints of generalized pain and also difficulty with ambulation. Sickle Cell crisis Sickle Cell anemia SIRS " Clinical Findings Show (include reference to source document): WBC: 28.1 Pulse rate: 109 Based on the above clinical scenario and your knowledge of the patient, please indicate the most appropriate diagnosis: [ ] SIRS (non-infectious) with Acute Organ Dysfunction [ x] SIRS (non-infectious) without Acute Organ Dysfunction [ ] Other: [ ] Unable to determine [ ] Comment/Explanation: Present on Admission: [x ] Yes (Y) [ ] Clinically undeterminable (W) [ ] No (N) Please also document response in your Progress Notes and/or Discharge Summary and indicate if the condition was present on admission. RAFA
== END 2017-06-15 12:45 | disposition home health service (06) | DRG 812 ==
LOC: UNDOADMIN 15:01 → 3A 15:01
PROVIDERS: ADMIT Internal Medicine; ATTEND Internal Medicine
PROC: 30233N1 Transfusion of Nonautologous Red Blood Cells into Peripheral Vein, Percutaneous Approach (ICD-10-PCS; principal; 2017-06-08)
PROC: 02HV33Z Insertion of Infusion Device into Superior Vena Cava, Percutaneous Approach (ICD-10-PCS; 2017-06-14)
PROC: B548ZZA Ultrasonography of Superior Vena Cava, Guidance (ICD-10-PCS; 2017-06-14)
DX: D57.00 Hb-SS disease with crisis, unspecified (principal); R65.10 Systemic inflammatory response syndrome (SIRS) of non-infectious origin without acute organ dysfunction; E86.0 Dehydration; D64.9 Anemia, unspecified; R09.89 Other specified symptoms and signs involving the circulatory and respiratory systems; Z88.8 Allergy status to other drugs, medicaments and biological substances; G89.29 Other chronic pain; Z82.49 Family history of ischemic heart disease and other diseases of the circulatory system; E83.111 Hemochromatosis due to repeated red blood cell transfusions
CPT/HCPCS: 36415; 36569; 71010; 72158; 72170; 74020; 76937; 77001; 80048; 80053; 81001; 82728; 83550; 85007; 85025; 85027; 85045; 85610; 85660; 86850; 86900; 86901; 87040; 87086; A9577; C1751; G8978-GP; G8979-GP; J0456; J0696; J1170; J1200; J1644; J2250; J2405; J3010; J3360; J7040; J7050; P9016

== ENCOUNTER 2019-03-09 03:33 | Inpatient (IN) | payer MEDICARE ==
[2019-03-09] MEDS ORDERED: DILAUDID IV ONE ×2 (04:01→15:45)
[2019-03-09] MEDS ORDERED: NACL 0.9% 1000 ML 1,000 ML IV ONE (04:01)
[2019-03-09] MEDS: NACL 0.9% 1000 ML 1,000 ML IV ONE ×2 (04:01→04:45)
[2019-03-09] MEDS ORDERED: TORADOL IV ONE (04:01)
[2019-03-09] MEDS ORDERED: BENADRYL IV ONE (04:01)
[2019-03-09 04:33] LABS: Mean Corpuscular HGB Conc 34 % (32-34); Mean Corpuscular Volume 96 fl (84-94); Platelet Count 298 K/mm3 (140-440); Red Blood Count 1.75 M/mm3 (3.65-5.03)
[2019-03-09 04:36] LABS: Hematocrit 16.8 % (35.5-45.6); Hemoglobin 5.8 gm/dl (11.8-15.2); Red Cell Distribution Width 24.3 % (13.2-15.2)
[2019-03-09 04:48] LABS: Calcium 8.6 mg/dL (8.4-10.2)
[2019-03-09 05:16] LABS: Total Cells Counted 100
[2019-03-09 05:17] LABS: Anisocytosis 2+; Poikilocytosis 2+
[2019-03-09 05:18] LABS: Ovalocytes 1+; Sickle Cells 1+; Target Cells 1+
[2019-03-09 05:19] LABS: Platelet Estimate Consistent w Auto
[2019-03-09] MEDS ORDERED: NACL 0.9% 500 ML 500 ML IV ONE (05:19)
--- NOTE | 2019-03-09 05:24 | Emergency Department Report ---
ED General Adult HPI - General Chief complaint: Sickle Cell Crisis Stated complaint: SICKLE CELL CRISIS Time Seen by Provider: 03/09/19 03:55 Source: patient Mode of arrival: Wheelchair Limitations: No Limitations, Physical Limitation - History of Present Illness Initial comments: Patient is a 43-year-old Chinese gentleman with a history of sickle cell disease and end-stage renal disease who is presenting with hip and back pain. Patient states pains are a 10 out of 10 consistent with his sickle cell disease. The patient denies any fever or cough congestion or shortness of breath at this time. Severity scale (0 -10): 10 Consistency: constant Improves with: none Worsens with: none Associated Symptoms: denies: confusion, chest pain, cough, diaphoresis, fever/chills, shortness of breath, syncope - Related Data Home Medications Medication Instructions Recorded Confirmed Last Taken Folic Acid [Folvite] 1 mg PO QDAY 05/08/15 06/07/17 06/03/17 diphenhydrAMINE [Benadryl CAP] 25 mg PO Q6HR PRN 05/08/15 06/07/17 06/07/17 13:00 Oxycodone HCl/Acetaminophen 1 each PO Q6HR PRN 10/14/15 06/07/17 06/07/17 13:00 [Percocet 10/325 mg] Rivaroxaban [Xarelto] 20 mg PO QDAY 06/07/17 06/07/17 06/06/17 Allergies Allergy/AdvReac Type Severity Reaction Status Date / Time hydroxyzine HCl Allergy Hives Verified 10/24/15 07:44 [From Vistaril] hydroxyzine pamoate Allergy Hives Verified 10/24/15 07:44 [From Vistaril] ED Review of Systems ROS: Stated complaint: SICKLE CELL CRISIS Other details as noted in HPI Comment: All other systems reviewed and negative ED Past Medical Hx - Past Medical History Previous Medical History?: Yes Hx Hypertension: No Hx Congestive Heart Failure: No Hx Diabetes: No Hx Deep Vein Thrombosis: Yes Hx Pulmonary Embolism: No Hx GERD: No Hx Liver Disease: Yes (enlarged) Hx Renal Disease: No Hx Sickle Cell Disease: Yes Hx Arthritis: Yes Hx Kidney Stones: No Hx Asthma: No Hx COPD: No Hx Tuberculosis: No Hx HIV: No - Surgical History Past Surgical History?: Yes Hx Cholecystectomy: Yes (11 years) Hx Appendectomy: Yes (17 years old) Additional Surgical History: alessandra filter. PORT RIGHT CHEST, left hip replacement - Social History Smoking Status: Never Smoker Substance Use Type: None - Medications Home Medications: Home Medications Medication Instructions Recorded Confirmed Last Taken Type Folic Acid [Folvite] 1 mg PO QDAY 05/08/15 06/07/17 06/03/17 History diphenhydrAMINE [Benadryl CAP] 25 mg PO Q6HR PRN 05/08/15 06/07/17 06/07/17 13:00 History Oxycodone HCl/Acetaminophen 1 each PO Q6HR PRN 10/14/15 06/07/17 06/07/17 13:00 History [Percocet 10/325 mg] Rivaroxaban [Xarelto] 20 mg PO QDAY 06/07/17 06/07/17 06/06/17 History ED Physical Exam - General Limitations: No Limitations, Physical Limitation General appearance: alert, in distress (secondary to pain) - Head Head exam: Present: atraumatic, normocephalic - Eye Eye exam: Present: normal appearance - ENT ENT exam: Present: mucous membranes moist - Neck Neck exam: Present: normal inspection - Respiratory Respiratory exam: Present: normal lung sounds bilaterally. Absent: respiratory distress, wheezes, rales, rhonchi - Cardiovascular Cardiovascular Exam: Present: regular rate, normal rhythm. Absent: systolic murmur, diastolic murmur, rubs, gallop - GI/Abdominal GI/Abdominal exam: Present: soft, normal bowel sounds. Absent: distended, tenderness, guarding, rebound - Rectal Rectal exam: Present: deferred - Extremities Exam Extremities exam: Present: normal inspection - Back Exam Back exam: Present: normal inspection - Neurological Exam Neurological exam: Present: alert, oriented X3 - Psychiatric Psychiatric exam: Present: normal affect, normal mood - Skin Skin exam: Present: warm, dry, intact, normal color. Absent: rash ED Course Vital Signs 03/09/19 03/09/19 03/09/19 03:37 04:39 04:52 Temperature 98.6 F Pulse Rate 105 H 96 H Respiratory 20 16 12 Rate Blood Pressure 135/91 Blood Pressure 119/75 [Left] O2 Sat by Pulse 94 97 97 Oximetry ED Medical Decision Making - Lab Data Result diagrams: 03/09/19 04:21 03/09/19 04:21 - Medical Decision Making Patient was started on normal saline. Patient given Dilaudid for pain control. Patient is noted to have a very low hemoglobin of 5.8 which is below his baseline 9. Spoke with his primary care physician and will admit the patient. Since last ounces was Tuesday and the patient is missed one session. 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 Critical care attestation.: If time is entered above; I have spent that time in minutes in the direct care of this critically ill patient, excluding procedure time. ED Disposition Clinical Impression: Sickle cell crisis Anemia Qualifiers: Anemia type: unspecified type Qualified Code(s): D64.9 - Anemia, unspecified Disposition: 09 OP ADMIT IP TO THIS HOSP Is pt being admited?: Yes Does the pt Need Aspirin: No Condition: Stable Time of Disposition: 05:23
[2019-03-09] MEDS ORDERED: NACL 0.9% 1000 ML 1,000 ML IV SCH (06:00)
[2019-03-09] MEDS ORDERED: NACL 0.9% 100 ML IV PRN (10:08)
[2019-03-09] MEDS: DILAUDID IV PRN ×4 (11:26→21:56)
[2019-03-09] MEDS: BENADRYL IV PRN ×2 (11:27→18:44)
[2019-03-09] MEDS: NACL 0.9% 1000 ML 1,000 ML IV SCH (12:47)
[2019-03-09 13:12] LABS: Hepatitis B Surface Antigen Non-Reactive (Negative); Hepatitis C Virus Antibody Non-Reactive (NonReactive)
--- NOTE | 2019-03-09 15:13 | Consultation ---
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 Pt was admitted for acute sickle cell crisis and for blood transfusion since labs showed Hb as low as 5.8. renal consult requested for management of ESRD/HD Past History Past Medical History: anemia, renal failure, other (sickle cell disease ) Past Surgical History: Other (hip surgery ) Social history: denies: smoking, alcohol abuse, prescription drug abuse, IV drug use Family history: hypertension Medications and Allergies Allergies Allergy/AdvReac Type Severity Reaction Status Date / Time hydroxyzine HCl Allergy Hives Verified 10/24/15 07:44 [From Vistaril] hydroxyzine pamoate Allergy Hives Verified 10/24/15 07:44 [From Vistaril] Home Medications Medication Instructions Recorded Confirmed Last Taken Type Folic Acid [Folvite] 1 mg PO QDAY 05/08/15 03/09/19 03/08/19 History diphenhydrAMINE [Benadryl CAP] 25 mg PO Q6HR PRN 05/08/15 03/09/19 03/08/19 History Oxycodone HCl/Acetaminophen 1 each PO Q6HR PRN 10/14/15 03/09/19 03/08/19 History [Percocet 10/325 mg] Rivaroxaban [Xarelto] 20 mg PO QDAY 06/07/17 03/09/19 03/08/19 History Active Meds: Active Medications Diphenhydramine HCl (Benadryl) 25 mg IV Q6H PRN PRN Reason: Itching Last Admin: 03/09/19 11:27 Dose: 25 mg Documented by: Hydromorphone HCl (Dilaudid) 3 mg IV Q3H PRN PRN Reason: Pain , Severe (7-10) Last Admin: 03/09/19 14:36 Dose: 3 mg Documented by: Hydromorphone HCl (Dilaudid) 2 mg IV Q3H PRN PRN Reason: Pain , Severe (7-10) Sodium Chloride (Nacl 0.9%) 100 mls @ 999 mls/hr IV ALIVIA PRN PRN Reason: Hypotension Sodium Chloride (Nacl 0.9% 1000 Ml) 1,000 mls @ 75 mls/hr IV DIRECT JAMIN Last Admin: 03/09/19 12:47 Dose: 75 mls/hr Documented by: Review of Systems All systems: negative Constitutional: fatigue, weakness, malaise, chronic pain Cardiovascular: dyspnea on exertion Exam - Vital Signs Vital signs: Vital Signs Temp Pulse Resp BP Pulse Ox 98.6 F 105 H 20 135/91 94 03/09/19 03:37 03/09/19 03:37 03/09/19 03:37 03/09/19 03:37 03/09/19 03:37 - General Appearance General appearance: appears stated age, chronically ill, frail EENT: ATNC, PERRL, mucous membranes moist Neck: Present: neck supple Respiratory: Clear to Ascultation Heart: regular, S1S2 Gastrointestinal: Present: normoactive bowel sounds Integumentary: no rash, other (no edema ) Neurologic: no focal deficit, alert and oriented x3, strength 5/5, CN 3-12 intact Psychiatric: mood/affect appropriate, cooperative Results - Lab Results 03/09/19 04:21 03/09/19 04:21 Most recent lab results Calcium 8.6 mg/dL (8.4-10.2) 03/09/19 04:21 Assessment and Plan - Patient Problems (1) ESRD (end stage renal disease) Current Visit: Yes Status: Acute Plan to address problem: arranged HD today for correction of hyperkalemia/solute clearance. can transfuse 2PRBC with HD. cont HD on TTS schedule thereafter (2) Anemia requiring transfusions Current Visit: No Status: Acute Plan to address problem: awaiting 2PRBC transfusion with HD (3) Sickle cell pain crisis Current Visit: No Status: Acute Plan to address problem: pain control as per primary attending
--- NOTE | 2019-03-09 19:26 | History and Physical Report ---
History of Present Illness Date of examination: 03/09/19 Date of admission: 03/09/19 05:24 Chief complaint: SCD/Pain crisis History of present illness: Patient presented to the ER with CC of Diffuse joint pain, labs showed hgb at 5+, patient with SCD/pain crisis, ESRD, due to SCD, and complications of previous orthopedic surgery.He is admitted, for sxs management/control.He has since had HD, by DR YANCEY Past History Past Medical History: anemia, renal failure, other (sickle cell disease ) Past Surgical History: arthroscopy, Other (hip surgery ) Social history: no significant social history, single, lives with family. denies: smoking, alcohol abuse, prescription drug abuse, IV drug use Family history: hypertension Medications and Allergies Allergies Allergy/AdvReac Type Severity Reaction Status Date / Time hydroxyzine HCl Allergy Hives Verified 10/24/15 07:44 [From Vistaril] hydroxyzine pamoate Allergy Hives Verified 10/24/15 07:44 [From Vistaril] Home Medications Medication Instructions Recorded Confirmed Last Taken Type Folic Acid [Folvite] 1 mg PO QDAY 05/08/15 03/09/19 03/08/19 History diphenhydrAMINE [Benadryl CAP] 25 mg PO Q6HR PRN 05/08/15 03/09/19 03/08/19 History Oxycodone HCl/Acetaminophen 1 each PO Q6HR PRN 10/14/15 03/09/19 03/08/19 History [Percocet 10/325 mg] Rivaroxaban [Xarelto] 20 mg PO QDAY 06/07/17 03/09/19 03/08/19 History Active Meds: Active Medications Diphenhydramine HCl (Benadryl) 25 mg IV Q6H PRN PRN Reason: Itching Last Admin: 03/09/19 18:44 Dose: 25 mg Documented by: Hydromorphone HCl (Dilaudid) 3 mg IV Q3H PRN PRN Reason: Pain , Severe (7-10) Last Admin: 03/09/19 18:43 Dose: 3 mg Documented by: Hydromorphone HCl (Dilaudid) 2 mg IV Q3H PRN PRN Reason: Pain , Severe (7-10) Sodium Chloride (Nacl 0.9%) 100 mls @ 999 mls/hr IV ALIVIA PRN PRN Reason: Hypotension Sodium Chloride (Nacl 0.9% 1000 Ml) 1,000 mls @ 75 mls/hr IV DIRECT JAMIN Last Admin: 03/09/19 12:47 Dose: 75 mls/hr Documented by: Rivaroxaban (Xarelto) 20 mg PO QDAY JAMIN; Protocol Review of Systems Constitutional: fatigue, chronic pain Musculoskeletal: low back pain, shooting leg pain Exam - Constitutional Vitals: Temp Pulse Resp BP Pulse Ox 98.9 F 92 H 12 133/87 98 03/09/19 18:15 03/09/19 18:15 03/09/19 18:15 03/09/19 18:15 03/09/19 16:48 General appearance: Present: mild distress - EENT Eyes: Present: PERRL ENT: hearing intact, clear oral mucosa - Neck Neck: Present: supple, normal ROM - Respiratory Respiratory effort: normal Respiratory: bilateral: CTA - Cardiovascular Heart Sounds: Present: S1 & S2. Absent: rub, click - Extremities Extremities: pulses symmetrical, No edema Peripheral Pulses: within normal limits - Abdominal General gastrointestinal: Present: soft, non-tender, non-distended, normal bowel sounds Male genitourinary: Present: deferred - Rectal Rectal Exam: deferred - Integumentary Integumentary: Present: clear, warm, dry - Musculoskeletal Musculoskeletal: gait normal, strength equal bilaterally - Psychiatric Psychiatric: appropriate mood/affect, intact judgment & insight - Neurologic Neurologic: CNII-XII intact, moves all extremities Results - Labs CBC & Chem 7: 03/09/19 04:21 03/09/19 04:21 Labs: Abnormal lab results 03/09/19 03/09/19 Range/Units 04:21 04:21 WBC 20.6 H (4.5-11.0) K/mm3 RBC 1.75 L (3.65-5.03) M/mm3 Hgb 5.8 L* (11.8-15.2) gm/dl Hct 16.8 L* (35.5-45.6) % MCV 96 H (84-94) fl MCH 33 H (28-32) pg RDW 24.3 H (13.2-15.2) % Seg Neuts % (Manual) 83.0 H (40.0-70.0) % Lymphocytes % (Manual) 6.0 L (13.4-35.0) % Nucleated RBC % 4.0 H (0.0-0.9) % Seg Neutrophils # Man 17.1 H (1.8-7.7) K/mm3 Monocytes # (Manual) 1.2 H (0.0-0.8) K/mm3 Basophils # (Manual) 0.2 H (0.0-0.1) K/mm3 Percent Retic 9.88 H (0.78-2.58) % Sodium 132 L (137-145) mmol/L Potassium 5.3 H (3.6-5.0) mmol/L Chloride 95.5 L (98-107) mmol/L BUN 52 H (9-20) mg/dL Creatinine 4.5 H (0.8-1.5) mg/dL Glucose 110 H (75-100) mg/dL Assessment and Plan - Patient Problems (1) Anemia Current Visit: Yes Status: Acute Qualifiers: Anemia type: unspecified type Qualified Code(s): D64.9 - Anemia, unspecified Plan to address problem: Replacement transfusion. (2) ESRD (end stage renal disease) Current Visit: Yes Status: Acute Plan to address problem: Follow renal service. (3) DVT (deep venous thrombosis) Current Visit: No Status: Acute Plan to address problem: Anti coagulation.
[2019-03-10] MEDS: DILAUDID IV PRN ×7 (01:13→22:05)
[2019-03-10] MEDS: BENADRYL IV PRN ×4 (01:14→22:15)
[2019-03-10 08:00] LABS: Basophils # (Auto) 0.1 K/mm3 (0.0-0.1); Basophils % (Auto) 0.7 % (0.0-1.8); Eosinophils # (Auto) 0.1 K/mm3 (0.0-0.4); Eosinophils % (Auto) 0.7 % (0.0-4.3); Hematocrit 22.2 % (35.5-45.6); Hemoglobin 7.7 gm/dl (11.8-15.2); Lymphocytes # (Auto) 2.2 K/mm3 (1.2-5.4); Lymphocytes % (Auto) 12.6 % (13.4-35.0); Mean Corpuscular HGB Conc 35 % (32-34); Mean Corpuscular Volume 91 fl (84-94); Monocytes # (Auto) 2.3 K/mm3 (0.0-0.8); Platelet Count 319 K/mm3 (140-440); Red Blood Count 2.43 M/mm3 (3.65-5.03)
--- NOTE | 2019-03-10 08:04 | Progress Note ---
Assessment and Plan - Patient Problems (1) ESRD (end stage renal disease) Current Visit: Yes Status: Acute Plan to address problem: arranged HD yesterday for correction of hyperkalemia/solute clearance. s/p 2PRBC with HD. will monitor labs and resume maintenance HD on Mon. (2) Anemia requiring transfusions Current Visit: No Status: Acute Plan to address problem: awaiting 2PRBC transfusion with HD (3) Sickle cell pain crisis Current Visit: No Status: Acute Plan to address problem: pain control as per primary attending Subjective Date of service: 03/10/19 Principal diagnosis: ESRD Interval history: pt in acute severe pain secondary to sickle cell crisis, IV dilaudid given this AM Objective - Vital Signs Vital signs: Vital Signs - 12hr 03/09/19 03/09/19 03/10/19 22:00 23:03 00:23 Temperature 99.3 F Pulse Rate 97 H Respiratory 18 16 Rate Blood Pressure 125/75 Blood Pressure [Left] O2 Sat by Pulse 89 93 Oximetry 03/10/19 05:40 Temperature 98.6 F Pulse Rate 77 Respiratory 18 Rate Blood Pressure Blood Pressure 127/72 [Left] O2 Sat by Pulse 97 Oximetry - General Appearance General appearance: well-developed, appears stated age, chronically ill, frail EENT: ATNC, PERRL, mucous membranes moist Neck: no JVD Respiratory: Present: Clear to Ascultation Cardiology: regular, S1S2 Gastrointestinal: normoactive bowel sounds Integumentary: no rash, other (no edema ) Neurologic: no focal deficit, alert and oriented x3, strength 5/5, CN 3-12 intact Psychiatric: mood/affect appropriate, cooperative - Lab 03/09/19 04:21 03/09/19 04:21 Most recent lab results Calcium 8.6 mg/dL (8.4-10.2) 03/09/19 04:21 Medications & Allergies - Medications Allergies/Adverse Reactions: Allergies hydroxyzine HCl [From Vistaril] Allergy (Verified 10/24/15 07:44) Hives hydroxyzine pamoate [From Vistaril] Allergy (Verified 10/24/15 07:44) Hives Home Medications: Home Medications Medication Instructions Recorded Confirmed Last Taken Type Folic Acid [Folvite] 1 mg PO QDAY 05/08/15 03/09/19 03/08/19 History diphenhydrAMINE [Benadryl CAP] 25 mg PO Q6HR PRN 05/08/15 03/09/19 03/08/19 History Oxycodone HCl/Acetaminophen 1 each PO Q6HR PRN 10/14/15 03/09/19 03/08/19 History [Percocet 10/325 mg] Rivaroxaban [Xarelto] 20 mg PO QDAY 06/07/17 03/09/19 03/08/19 History Active Medications: Generic Name Dose Route Start Last Admin Trade Name Freq PRN Reason Stop Dose Admin Diphenhydramine HCl 25 mg 03/09/19 11:07 03/10/19 01:14 Benadryl IV 25 mg Q6H PRN Administration Itching Hydromorphone HCl 2 mg 03/09/19 20:00 03/10/19 08:00 Dilaudid IV 2 mg Q3H PRN Administration Pain , Severe (7-10) Sodium Chloride 100 mls @ 999 mls/hr 03/09/19 10:08 Nacl 0.9% IV ALIVIA PRN Hypotension Sodium Chloride 1,000 mls @ 50 mls/hr 03/09/19 12:00 03/09/19 12:47 Nacl 0.9% 1000 Ml IV 75 mls/hr DIRECT JAMIN Administration Ceftriaxone Sodium 1 gm in 50 mls @ 100 mls/hr 03/10/19 19:32 Rocephin/Ns 1 Gm/50 Ml IV Q24HR JAMIN Protocol Rivaroxaban 20 mg 03/10/19 10:00 Xarelto PO QDAY JAMIN Protocol
[2019-03-10] MEDS: NACL 0.9% 1000 ML 1,000 ML IV SCH (08:09)
[2019-03-10 08:20] LABS: Calcium 8.7 mg/dL (8.4-10.2)
[2019-03-10] MEDS: XARELTO PO SCH (10:19)
--- NOTE | 2019-03-10 13:36 | Progress Note ---
Assessment and Plan - Patient Problems (1) Anemia Current Visit: Yes Status: Acute Qualifiers: Anemia type: unspecified type Qualified Code(s): D64.9 - Anemia, unspecified Plan to address problem: Replacement transfusion. (2) ESRD (end stage renal disease) Current Visit: Yes Status: Acute Plan to address problem: Follow renal service. (3) DVT (deep venous thrombosis) Current Visit: No Status: Acute Plan to address problem: Anti coagulation. Subjective Date of service: 03/10/19 Principal diagnosis: /scd, pain crisis/ESRD. Interval history: Patient seen/examined, resting in bed, labs revuewed, case d/w patient. no new issues at this time. Objective - Constitutional Vitals: Vital Signs - 12hr 03/10/19 05:40 Temperature 98.6 F Pulse Rate 77 Respiratory 18 Rate Blood Pressure 127/72 [Left] O2 Sat by Pulse 97 Oximetry General appearance: Present: mild distress - EENT Eyes: PERRL, EOM intact ENT: hearing intact, clear oral mucosa Ears: bilateral: normal - Neck Neck: supple, normal ROM - Respiratory Respiratory effort: normal Respiratory: bilateral: CTA - Breasts Breasts: deferred - Cardiovascular Rhythm: regular Heart Sounds: Present: S1 & S2. Absent: gallop, rub Extremities: pulses intact, No edema, normal color, Full ROM - Gastrointestinal General gastrointestinal: Present: soft, non-tender, non-distended, normal bowel sounds Rectal Exam: deferred - Genitourinary Male genitourinary: deferred - Integumentary Integumentary: clear, warm, dry - Musculoskeletal Musculoskeletal: 1, strength equal bilaterally - Neurologic Neurologic: moves all extremities - Psychiatric Psychiatric: memory intact, appropriate mood/affect, intact judgment & insight - Labs CBC & Chem 7: 03/10/19 07:15 03/10/19 07:15 Labs: Abnormal lab results 03/10/19 03/10/19 Range/Units 07:15 07:15 WBC 17.6 H (4.5-11.0) K/mm3 RBC 2.43 L (3.65-5.03) M/mm3 Hgb 7.7 L (11.8-15.2) gm/dl Hct 22.2 L (35.5-45.6) % MCHC 35 H (32-34) % RDW 23.0 H (13.2-15.2) % Lymph % (Auto) 12.6 L (13.4-35.0) % Smith % (Auto) 13.0 H (0.0-7.3) % Smith # 2.3 H (0.0-0.8) K/mm3 Seg Neutrophils % 73.0 H (40.0-70.0) % Seg Neutrophils # 12.9 H (1.8-7.7) K/mm3 Percent Retic 7.26 H (0.78-2.58) % Sodium 130 L (137-145) mmol/L Chloride 94.3 L (98-107) mmol/L BUN 26 H (9-20) mg/dL Creatinine 2.5 H (0.8-1.5) mg/dL Glucose 114 H (75-100) mg/dL
[2019-03-10] MEDS: PERCOCET 5/325 PO PRN (17:13)
[2019-03-10] MEDS: ROCEPHIN/NS 1 GM/50 ML 1 GM/50 ML BAG IV SCH (18:49)
[2019-03-10] MEDS ORDERED: TYLENOL ONE (23:27)
[2019-03-11] MEDS: DILAUDID IV PRN ×8 (01:22→23:21)
[2019-03-11] MEDS: BENADRYL IV PRN ×4 (03:58→23:20)
[2019-03-11] MEDS: XARELTO PO SCH (09:41)
[2019-03-11] MEDS: ROCEPHIN/NS 1 GM/50 ML 1 GM/50 ML BAG IV SCH (10:11)
--- NOTE | 2019-03-11 11:41 | Progress Note ---
Assessment and Plan - Patient Problems (1) Anemia Current Visit: Yes Status: Acute Qualifiers: Anemia type: unspecified type Qualified Code(s): D64.9 - Anemia, unspecified Plan to address problem: Replacement transfusion. (2) ESRD (end stage renal disease) Current Visit: Yes Status: Acute Plan to address problem: Follow renal service. (3) DVT (deep venous thrombosis) Current Visit: No Status: Acute Plan to address problem: Anti coagulation. Subjective Date of service: 03/11/19 Principal diagnosis: /scd, pain crisis/ESRD. Interval history: Patient seen/examined, resting in bed, labs revuewed, case d/w patient. no new issues at this time. Patient seen/examined, resting in bed, labs ordered, No new issues at this time. Objective - Constitutional Vitals: Vital Signs - 12hr 03/11/19 05:59 Temperature 99.8 F H Pulse Rate 105 H Respiratory 20 Rate Blood Pressure 135/95 O2 Sat by Pulse 91 Oximetry General appearance: Present: mild distress, cachectic - EENT Eyes: PERRL, EOM intact ENT: hearing intact, clear oral mucosa Ears: bilateral: normal - Neck Neck: supple, normal ROM - Respiratory Respiratory effort: normal Respiratory: bilateral: CTA - Breasts Breasts: deferred - Cardiovascular Rhythm: regular Heart Sounds: Present: S1 & S2. Absent: gallop, rub Extremities: pulses intact, No edema, normal color, Full ROM - Gastrointestinal General gastrointestinal: Present: soft, non-tender, non-distended, normal bowel sounds Rectal Exam: deferred - Genitourinary Male genitourinary: deferred - Integumentary Integumentary: clear, warm, dry - Musculoskeletal Musculoskeletal: 1, strength equal bilaterally - Neurologic Neurologic: moves all extremities - Psychiatric Psychiatric: memory intact, appropriate mood/affect, intact judgment & insight - Labs CBC & Chem 7: 03/10/19 07:15 03/10/19 07:15
[2019-03-11] MEDS: LIDODERM 5% TD SCH (15:11)
[2019-03-11] MEDS: TYLENOL PO PRN (17:29)
[2019-03-11] MEDS ORDERED: VANCOMYCIN/NS 1 GM/250 ML 1 GM/250 ML BAG IV ONE ×2 (20:14→22:00)
[2019-03-11] MEDS: PERCOCET 5/325 PO PRN (21:51)
[2019-03-11] MEDS: NACL 0.9% 1000 ML 1,000 ML IV SCH (23:38)
[2019-03-12] MEDS: DILAUDID IV PRN ×7 (02:42→22:50)
[2019-03-12] MEDS: PERCOCET 5/325 PO PRN ×3 (04:22→21:11)
[2019-03-12] MEDS: BENADRYL IV PRN ×3 (07:07→20:14)
[2019-03-12] MEDS ORDERED: NACL 0.9% 100 ML IV PRN (07:16)
--- NOTE | 2019-03-12 07:18 | Progress Note ---
Assessment and Plan - Patient Problems (1) ESRD (end stage renal disease) Current Visit: Yes Status: Acute Plan to address problem: no acute indication for renal replacement therapy at present. Will resume maintenance HD on TTS schedule, according to his outpatient schedule (2) Anemia requiring transfusions Current Visit: No Status: Acute Plan to address problem: Hb improved to 7.7 s/p 2PRBC transfusion (3) Sickle cell pain crisis Current Visit: No Status: Acute Plan to address problem: pain control as per primary attending Subjective Date of service: 03/12/19 Principal diagnosis: /scd, pain crisis/ESRD. Interval history: pt in acute severe pain secondary to sickle cell crisis, IV dilaudid given this AM Objective - Vital Signs Vital signs: Vital Signs - 12hr 03/11/19 03/11/19 03/12/19 21:50 22:11 02:42 Temperature 99.5 F 98.8 F Pulse Rate 113 H 112 H Respiratory 18 20 19 Rate Blood Pressure 139/104 134/80 O2 Sat by Pulse 95 95 Oximetry 03/12/19 03/12/19 03:12 05:15 Temperature 98.9 F Pulse Rate 98 H Respiratory 17 18 Rate Blood Pressure 145/102 O2 Sat by Pulse 97 Oximetry - General Appearance General appearance: appears stated age, cachectic, chronically ill, frail EENT: ATNC, PERRL, mucous membranes moist Neck: no JVD Respiratory: Present: Clear to Ascultation Cardiology: regular, S1S2 Gastrointestinal: normoactive bowel sounds Integumentary: no rash, other (no edema ) Neurologic: no focal deficit, alert and oriented x3, strength 5/5, CN 3-12 intact Psychiatric: mood/affect appropriate, cooperative - Lab 03/10/19 07:15 03/10/19 07:15 Most recent lab results Calcium 8.7 mg/dL (8.4-10.2) 03/10/19 07:15 Medications & Allergies - Medications Allergies/Adverse Reactions: Allergies hydroxyzine HCl [From Vistaril] Allergy (Verified 10/24/15 07:44) Hives hydroxyzine pamoate [From Vistaril] Allergy (Verified 10/24/15 07:44) Hives Home Medications: Home Medications Medication Instructions Recorded Confirmed Last Taken Type Folic Acid [Folvite] 1 mg PO QDAY 05/08/15 03/09/19 03/08/19 History diphenhydrAMINE [Benadryl CAP] 25 mg PO Q6HR PRN 05/08/15 03/09/19 03/08/19 History Oxycodone HCl/Acetaminophen 1 each PO Q6HR PRN 10/14/15 03/09/19 03/08/19 History [Percocet 10/325 mg] Rivaroxaban [Xarelto] 20 mg PO QDAY 06/07/17 03/09/19 03/08/19 History Active Medications: Generic Name Dose Route Start Last Admin Trade Name Freq PRN Reason Stop Dose Admin Acetaminophen 650 mg 03/11/19 17:15 03/11/19 17:29 Tylenol PO 650 mg Q6H PRN Administration Fever >101 Diphenhydramine HCl 25 mg 03/09/19 11:07 03/12/19 07:07 Benadryl IV 25 mg Q6H PRN Administration Itching Hydromorphone HCl 2 mg 03/09/19 20:00 03/12/19 07:07 Dilaudid IV 2 mg Q3H PRN Administration Pain , Severe (7-10) Sodium Chloride 100 mls @ 999 mls/hr 03/09/19 10:08 Nacl 0.9% IV ALIVIA PRN Hypotension Sodium Chloride 1,000 mls @ 50 mls/hr 03/09/19 12:00 03/11/19 23:38 Nacl 0.9% 1000 Ml IV 75 mls/hr DIRECT JAMIN Administration Ceftriaxone Sodium 1 gm in 50 mls @ 100 mls/hr 03/10/19 19:32 03/11/19 10:11 Rocephin/Ns 1 Gm/50 Ml IV 100 mls/hr Q24HR JAMIN Administration Protocol Vancomycin HCl 1 gm in 250 mls @ 125 mls/hr 03/12/19 16:00 Vancomycin/Ns 1 Gm/250 Ml IV MoWeFr JAMIN Protocol Lidocaine 1 each 03/11/19 14:00 03/11/19 15:11 Lidoderm 5% TD 1 each QDAY JAMIN Administration Oxycodone/Acetaminophen 2 tab 03/10/19 17:01 03/12/19 04:22 Percocet 5/325 PO 2 tab Q6H PRN Administration Pain, Moderate (4-6) Rivaroxaban 20 mg 03/10/19 10:00 03/11/19 09:41 Xarelto PO 20 mg QDAY JAMIN Administration Protocol
[2019-03-12 08:23] LABS: Hematocrit 20.2 % (35.5-45.6); Mean Corpuscular HGB Conc 35 % (32-34); Mean Corpuscular Volume 90 fl (84-94); Platelet Count 255 K/mm3 (140-440); Red Blood Count 2.23 M/mm3 (3.65-5.03)
[2019-03-12 08:28] LABS: Red Cell Distribution Width 20.5 % (13.2-15.2)
[2019-03-12 08:41] LABS: Calcium 8.8 mg/dL (8.4-10.2)
[2019-03-12 09:18] LABS: Basophils % (Manual) 0 % (0.0-1.8); Total Cells Counted 100
[2019-03-12 09:19] LABS: Anisocytosis 1+; Ovalocytes 1+; Sickle Cells 2+; Target Cells 2+
[2019-03-12 09:20] LABS: Tear Drop Cells 1+
[2019-03-12] MEDS: XARELTO PO SCH (10:39)
[2019-03-12] MEDS: LIDODERM 5% TD SCH (10:39)
[2019-03-12] MEDS: ROCEPHIN/NS 1 GM/50 ML 1 GM/50 ML BAG IV SCH (10:39)
[2019-03-12] MEDS: NACL 0.9% 1000 ML 1,000 ML IV SCH (17:16)
[2019-03-12] MEDS ORDERED: VANCOMYCIN/NS 1 GM/250 ML 1 GM/250 ML BAG IV SCH (20:00)
--- NOTE | 2019-03-12 22:11 | Progress Note ---
Assessment and Plan - Patient Problems (1) Anemia Current Visit: Yes Status: Acute Qualifiers: Anemia type: unspecified type Qualified Code(s): D64.9 - Anemia, unspecified Plan to address problem: Replacement transfusion. (2) ESRD (end stage renal disease) Current Visit: Yes Status: Acute Plan to address problem: Follow renal service. (3) DVT (deep venous thrombosis) Current Visit: No Status: Acute Plan to address problem: Anti coagulation. Subjective Date of service: 03/12/19 Principal diagnosis: /scd, pain crisis/ESRD. Interval history: Patient seen/examined, resting in bed, labs revuewed, case d/w patient. no new issues at this time. Patient seen/examined, resting in bed, labs ordered, No new issues at this time. Patient seen/examined, resting in bed, records reviewed,case d/w patient, and his mom at the bed side. patient , c/o pain not controlled at all, excruciating pain in the right sheen, i think it is due to severe infarction of the BM, due to crisis.I will get xray, and adjust his pain med, for few subsequent doses, to better control his pain.Will add boost plus to his nutrition. Objective - Constitutional Vitals: Vital Signs - 12hr 03/12/19 03/12/19 03/12/19 11:00 13:33 17:56 Temperature 98.3 F 100.2 F H Pulse Rate 111 H 105 H Respiratory 22 20 Rate Blood Pressure 142/96 122/81 O2 Sat by Pulse 96 97 95 Oximetry 03/12/19 03/12/19 21:11 21:47 Temperature Pulse Rate Respiratory 18 Rate Blood Pressure O2 Sat by Pulse 95 Oximetry General appearance: Present: mild distress, cachectic - EENT Eyes: PERRL, EOM intact ENT: hearing intact, clear oral mucosa Ears: bilateral: normal - Neck Neck: supple, normal ROM - Respiratory Respiratory: bilateral: CTA - Breasts Breasts: deferred - Cardiovascular Rhythm: regular Heart Sounds: Present: S1 & S2. Absent: gallop, rub Extremities: pulses intact, No edema, normal color, Full ROM - Gastrointestinal General gastrointestinal: Present: soft, non-tender, non-distended, normal bowel sounds Rectal Exam: deferred - Genitourinary Male genitourinary: deferred - Integumentary Integumentary: clear, warm, dry - Musculoskeletal Musculoskeletal: 1, strength equal bilaterally - Neurologic Neurologic: moves all extremities - Psychiatric Psychiatric: memory intact, appropriate mood/affect, intact judgment & insight - Labs CBC & Chem 7: 03/12/19 08:15 03/12/19 08:15 Labs: Abnormal lab results 03/12/19 03/12/19 Range/Units 08:15 08:15 WBC 21.9 H (4.5-11.0) K/mm3 RBC 2.23 L (3.65-5.03) M/mm3 Hgb 7.0 L (11.8-15.2) gm/dl Hct 20.2 L (35.5-45.6) % MCHC 35 H (32-34) % RDW 20.5 H (13.2-15.2) % Seg Neuts % (Manual) 82.0 H (40.0-70.0) % Lymphocytes % (Manual) 10.0 L (13.4-35.0) % Seg Neutrophils # Man 18.0 H (1.8-7.7) K/mm3 Monocytes # (Manual) 1.1 H (0.0-0.8) K/mm3 Eosinophils # (Manual) 0.7 H (0.0-0.4) K/mm3 Sodium 135 L (137-145) mmol/L Carbon Dioxide 19 L (22-30) mmol/L BUN 49 H (9-20) mg/dL Creatinine 3.3 H (0.8-1.5) mg/dL Glucose 115 H (75-100) mg/dL
--- NOTE | 2019-03-12 23:13 | XRay Report ---
. BILATERAL FORELEGS, 2 VIEWS EACH INDICATION / CLINICAL INFORMATION: Excruciating pain.. COMPARISON: None available. FINDINGS: Right foreleg: Patchy sclerotic lesions are seen within the right mid tibia and fibula diaphyses like ly secondary to intramedullary bone infarcts. Geographic intramedullary infarction is seen within the right medial tibial plateau. No fracture or dislocation is seen within the right tibia or fibula. Left foreleg: Osteosclerosis is seen within the left foreleg with several nonaggressive sclerotic les ion seen within the left mid tibia and fibula shafts likely secondary to bone infarctions. No fractur e or dislocation is seen within the left tibia or fibula. Signer Name: Tree Jones MD Signed: 03/12/2019 11:08 PM Workstation Name: [id number]
[2019-03-12] MEDS: TYLENOL PO PRN (23:47)
[2019-03-13] MEDS: BENADRYL IV PRN ×4 (01:49→22:54)
[2019-03-13] MEDS: DILAUDID IV PRN ×7 (01:49→22:53)
[2019-03-13] MEDS: PERCOCET 5/325 PO PRN ×2 (03:46→12:42)
[2019-03-13 05:49] LABS: Calcium 8.6 mg/dL (8.4-10.2)
[2019-03-13 06:01] LABS: Hemoglobin 6.6 gm/dl (11.8-15.2); Mean Corpuscular HGB Conc 34 % (32-34); Mean Corpuscular Volume 90 fl (84-94); Platelet Count 298 K/mm3 (140-440); Red Blood Count 2.17 M/mm3 (3.65-5.03)
[2019-03-13 06:05] LABS: Hematocrit 19.6 % (35.5-45.6)
[2019-03-13 06:06] LABS: Red Cell Distribution Width 20.3 % (13.2-15.2)
[2019-03-13 06:50] LABS: Basophils % (Manual) 0 % (0.0-1.8); Total Cells Counted 100
[2019-03-13 06:52] LABS: Poikilocytosis 2+; Sickle Cells 1+; Target Cells 1+
[2019-03-13 06:53] LABS: Anisocytosis 1+
[2019-03-13 06:54] LABS: Platelet Estimate Consistent w Auto
[2019-03-13] MEDS ORDERED: NACL 0.9% 500 ML 500 ML IV NR (07:17)
[2019-03-13] MEDS ORDERED: DEEP SEA NS PRN (09:00)
--- NOTE | 2019-03-13 09:58 | Progress Note ---
Assessment and Plan - Patient Problems (1) ESRD (end stage renal disease) Current Visit: Yes Status: Acute Plan to address problem: no acute indication for renal replacement therapy at present. Will resume maintenance HD on TTS schedule, according to his outpatient schedule (2) Anemia requiring transfusions Current Visit: No Status: Acute Plan to address problem: Hb improved to 7.7 s/p 2PRBC transfusion (3) Sickle cell pain crisis Current Visit: No Status: Acute Plan to address problem: pain control as per primary attending Subjective Date of service: 03/13/19 Principal diagnosis: /scd, pain crisis/ESRD. Interval history: pt in acute severe pain secondary to sickle cell crisis, IV dilaudid given this AM Objective - Vital Signs Vital signs: Vital Signs - 12hr 03/12/19 03/12/19 03/12/19 23:20 23:39 23:40 Temperature 102.4 F H Pulse Rate 115 H Respiratory 16 17 Rate Blood Pressure 108/66 O2 Sat by Pulse 89 95 Oximetry 03/12/19 03/13/19 03/13/19 23:47 00:07 03:32 Temperature Pulse Rate 110 H Respiratory 18 Rate Blood Pressure O2 Sat by Pulse 93 95 Oximetry 03/13/19 03/13/19 05:03 05:54 Temperature 99.2 F Pulse Rate 90 Respiratory 18 18 Rate Blood Pressure 114/72 O2 Sat by Pulse 95 Oximetry - General Appearance General appearance: appears stated age, cachectic, chronically ill, frail EENT: ATNC, PERRL, mucous membranes moist Neck: no JVD Respiratory: Present: Clear to Ascultation Cardiology: regular, S1S2 Gastrointestinal: normoactive bowel sounds Integumentary: no rash, other (no edema ) Neurologic: no focal deficit, alert and oriented x3, strength 5/5, CN 3-12 intact Psychiatric: mood/affect appropriate, cooperative - Lab 03/13/19 05:24 03/13/19 05:24 Most recent lab results Calcium 8.6 mg/dL (8.4-10.2) 03/13/19 05:24 Medications & Allergies - Medications Allergies/Adverse Reactions: Allergies hydroxyzine HCl [From Vistaril] Allergy (Verified 10/24/15 07:44) Hives hydroxyzine pamoate [From Vistaril] Allergy (Verified 10/24/15 07:44) Hives Home Medications: Home Medications Medication Instructions Recorded Confirmed Last Taken Type Folic Acid [Folvite] 1 mg PO QDAY 05/08/15 03/09/19 03/08/19 History diphenhydrAMINE [Benadryl CAP] 25 mg PO Q6HR PRN 05/08/15 03/09/19 03/08/19 History Oxycodone HCl/Acetaminophen 1 each PO Q6HR PRN 10/14/15 03/09/19 03/08/19 H istory [Percocet 10/325 mg] Rivaroxaban [Xarelto] 20 mg PO QDAY 06/07/17 03/09/19 03/08/19 History Active Medications: Generic Name Dose Route Start Last Admin Trade Name Freq PRN Reason Stop Dose Admin Acetaminophen 650 mg 03/11/19 17:15 03/12/19 23:47 Tylenol PO 650 mg Q6H PRN Administration Fever >101 Diphenhydramine HCl 25 mg 03/09/19 11:07 03/13/19 07:55 Benadryl IV 25 mg Q6H PRN Administration Itching Docusate Sodium 100 mg 03/13/19 10:00 Colace PO BID JAMIN Hydromorphone HCl 3 mg 03/12/19 22:13 03/13/19 07:55 Dilaudid IV 3 mg Q3H PRN Administration Pain , Severe (7-10) Sodium Chloride 100 mls @ 999 mls/hr 03/09/19 10:08 Nacl 0.9% IV ALIVIA PRN Hypotension Sodium Chloride 1,000 mls @ 50 mls/hr 03/09/19 12:00 03/12/19 17:16 Nacl 0.9% 1000 Ml IV 75 mls/hr DIRECT JAMIN Administration Ceftriaxone Sodium 1 gm in 50 mls @ 100 mls/hr 03/10/19 19:32 03/12/19 10:39 Rocephin/Ns 1 Gm/50 Ml IV 100 mls/hr Q24HR JAMIN Administration Protocol Sodium Chloride 100 mls @ 999 mls/hr 03/12/19 07:16 Nacl 0.9% IV ALIVIA PRN Hypotension Vancomycin HCl 1 gm in 250 mls @ 125 mls/hr 03/13/19 20:00 Vancomycin/Ns 1 Gm/250 Ml IV TuThSa JAMIN Protocol Sodium Chloride 500 mls @ 0 mls/hr 03/13/19 07:17 Nacl 0.9% 500 Ml IV 03/14/19 07:16 ONCE NR As Directed Lidocaine 1 each 03/11/19 14:00 03/12/19 10:39 Lidoderm 5% TD 1 each QDAY JAMIN Administration Oxycodone/Acetaminophen 2 tab 03/10/19 17:01 03/13/19 03:46 Percocet 5/325 PO 2 tab Q6H PRN Administration Pain, Moderate (4-6) Rivaroxaban 20 mg 03/10/19 10:00 03/12/19 10:39 Xarelto PO 20 mg QDAY JAMIN Administration Protocol Sodium Chloride 1 spray 03/13/19 09:00 Deep Sea NS PRN PRN Dry Nasal Passages
[2019-03-13] MEDS: COLACE PO SCH (11:28)
[2019-03-13] MEDS: XARELTO PO SCH (11:28)
[2019-03-13] MEDS: LIDODERM 5% TD SCH (11:28)
[2019-03-13] MEDS: ROCEPHIN/NS 1 GM/50 ML 1 GM/50 ML BAG IV SCH (11:28)
[2019-03-13] MEDS ORDERED: NACL 0.9 (PRIMING MACHINE ONLY DIALYSIS) MC ONE (15:20)
--- NOTE | 2019-03-13 20:10 | Progress Note ---
Assessment and Plan - Patient Problems (1) Anemia Current Visit: Yes Status: Acute Qualifiers: Anemia type: unspecified type Qualified Code(s): D64.9 - Anemia, unspecified Plan to address problem: Replacement transfusion. (2) ESRD (end stage renal disease) Current Visit: Yes Status: Acute Plan to address problem: Follow renal service. (3) DVT (deep venous thrombosis) Current Visit: No Status: Acute Plan to address problem: Anti coagulation. Subjective Date of service: 03/13/19 Principal diagnosis: /scd, pain crisis/ESRD. Interval history: Patient seen/examined, resting in bed, labs revuewed, case d/w patient. no new issues at this time. Patient seen/examined, resting in bed, labs ordered, No new issues at this time. Patient seen/examined, resting in bed, records reviewed,case d/w patient, and his mom at the bed side. patient , c/o pain not controlled at all, excruciating pain in the right sheen, i think it is due to severe infarction of the BM, due to crisis.I will get xray, and adjust his pain med, for few subsequent doses, to better control his pain.Will add boost plus to his nutrition. Patient seen/examined, resting in bed, records reviewed, case d/w patient. WBC up, despite IV ABX, will consult ID. continue to monitor cultures. Blood replacement transfusion ordered. Objective - Constitutional Vitals: Vital Signs - 12hr 03/13/19 03/13/19 03/13/19 10:00 14:40 14:45 Temperature 98.0 F Pulse Rate 88 88 Respiratory 18 Rate Blood Pressure 129/88 135/87 O2 Sat by Pulse 100 Oximetry 03/13/19 03/13/19 03/13/19 15:00 15:15 15:30 Temperature Pulse Rate 75 93 H 94 H Respiratory Rate Blood Pressure 111/71 124/81 121/80 O2 Sat by Pulse Oximetry 03/13/19 03/13/19 03/13/19 15:45 16:00 16:15 Temperature Pulse Rate 94 H 85 80 Respiratory Rate Blood Pressure 130/90 111/79 125/68 O2 Sat by Pulse Oximetry 03/13/19 03/13/19 03/13/19 16:30 16:45 17:00 Temperature Pulse Rate 87 83 80 Respiratory Rate Blood Pressure 126/92 130/77 124/82 O2 Sat by Pulse Oximetry 03/13/19 03/13/19 03/13/19 17:15 17:30 17:40 Temperature Pulse Rate 83 90 82 Respiratory Rate Blood Pressure 114/77 130/74 126/78 O2 Sat by Pulse Oximetry 03/13/19 03/13/19 03/13/19 18:00 18:23 19:25 Temperature 98.0 F 98.1 F Pulse Rate 82 90 Respiratory 18 18 17 Rate Blood Pressure 125/66 125/73 O2 Sat by Pulse 94 Oximetry General appearance: Present: mild distress, cachectic - EENT Eyes: PERRL, EOM intact ENT: hearing intact, clear oral mucosa Ears: bilateral: normal - Neck Neck: supple, normal ROM - Respiratory Respiratory effort: normal Respiratory: bilateral: CTA - Breasts Breasts: deferred - Cardiovascular Rhythm: regular Heart Sounds: Present: S1 & S2. Absent: gallop, rub Extremities: pulses intact, No edema, normal color, Full ROM - Gastrointestinal General gastrointestinal: Present: soft, non-tender, non-distended, normal bowel sounds Rectal Exam: deferred - Genitourinary Male genitourinary: deferred - Integumentary Integumentary: clear, warm, dry - Musculoskeletal Musculoskeletal: 1, strength equal bilaterally - Neurologic Neurologic: moves all extremities - Psychiatric Psychiatric: memory intact, appropriate mood/affect, intact judgment & insight - Labs CBC & Chem 7: 03/13/19 05:24 03/13/19 05:24 Labs: Abnormal lab results 03/13/19 03/13/19 Range/Units 05:24 05:24 WBC 23.9 H (4.5-11.0) K/mm3 RBC 2.17 L (3.65-5.03) M/mm3 Hgb 6.6 L (11.8-15.2) gm/dl Hct 19.6 L* (35.5-45.6) % RDW 20.3 H (13.2-15.2) % Seg Neuts % (Manual) 80.0 H (40.0-70.0) % Nucleated RBC % 3.0 H (0.0-0.9) % Seg Neutrophils # Man 19.1 H (1.8-7.7) K/mm3 Percent Retic 4.51 H (0.78-2.58) % Sodium 132 L (137-145) mmol/L Carbon Dioxide 19 L (22-30) mmol/L BUN 46 H (9-20) mg/dL Creatinine 3.2 H (0.8-1.5) mg/dL Glucose 119 H (75-100) mg/dL
[2019-03-13] MEDS: TYLENOL PO PRN (22:52)
[2019-03-13] MEDS: VANCOMYCIN/NS 1 GM/250 ML 1 GM/250 ML BAG IV SCH (23:02)
[2019-03-14] MEDS ORDERED: TYLENOL PO ONE (00:51)
[2019-03-14] MEDS: COLACE PO SCH ×4 (00:59→21:44)
[2019-03-14] MEDS: BENADRYL IV PRN ×3 (01:35→21:40)
[2019-03-14] MEDS: DILAUDID IV PRN ×7 (02:36→21:40)
--- NOTE | 2019-03-14 04:47 | Progress Note ---
Assessment and Plan - Patient Problems (1) Anemia Current Visit: Yes Status: Acute Qualifiers: Anemia type: unspecified type Qualified Code(s): D64.9 - Anemia, unspecified Plan to address problem: Replacement transfusion. (2) ESRD (end stage renal disease) Current Visit: Yes Status: Acute Plan to address problem: Follow renal service. (3) DVT (deep venous thrombosis) Current Visit: No Status: Acute Plan to address problem: Anti coagulation. Subjective Date of service: 03/14/19 Principal diagnosis: /scd, pain crisis/ESRD. Interval history: Patient seen/examined, resting in bed, labs revuewed, case d/w patient. no new issues at this time. Patient seen/examined, resting in bed, labs ordered, No new issues at this time. Patient seen/examined, resting in bed, records reviewed,case d/w patient, and his mom at the bed side. patient , c/o pain not controlled at all, excruciating pain in the right sheen, i think it is due to severe infarction of the BM, due to crisis.I will get xray, and adjust his pain med, for few subsequent doses, to better control his pain.Will add boost plus to his nutrition. Patient seen/examined, resting in bed, records reviewed, case d/w patient. WBC up, despite IV ABX, will consult ID. continue to monitor cultures. Blood replacement transfusion ordered. Patient resting in bed, asleep, records reviewed, no exchange consultant night. orders were given, to proceed with transfusio of blood after pre med, and tem below 100. Objective - Constitutional Vitals: Vital Signs - 12hr 03/13/19 03/13/19 03/13/19 17:00 17:15 17:30 Temperature Pulse Rate 80 83 90 Respiratory Rate Respiratory Rate [Back] Blood Pressure 124/82 114/77 130/74 Blood Pressure [Left] O2 Sat by Pulse Oximetry 03/13/19 03/13/19 03/13/19 17:40 18:00 18:23 Temperature 98.0 F 98.1 F Pulse Rate 82 82 90 Respiratory 18 18 Rate Respiratory Rate [Back] Blood Pressure 126/78 125/66 125/73 Blood Pressure [Left] O2 Sat by Pulse 94 Oximetry 03/13/19 03/13/19 03/13/19 19:25 19:55 20:53 Temperature Pulse Rate Respiratory 17 17 Rate Respiratory 16 Rate [Back] Blood Pressure Blood Pressure [Left] O2 Sat by Pulse Oximetry 03/13/19 03/13/19 03/13/19 22:00 22:36 22:52 Temperature 101.3 F H Pulse Rate 113 H Respiratory 17 16 17 Rate Respiratory Rate [Back] Blood Pressure Blood Pressure 117/71 [Left] O2 Sat by Pulse 96 94 Oximetry 03/13/19 03/13/19 03/14/19 22:53 23:52 00:33 Temperature 100.7 F H Pulse Rate 102 H Respiratory 17 17 18 Rate Respiratory Rate [Back] Blood Pressure 118/74 Blood Pressure [Left] O2 Sat by Pulse 88 Oximetry 03/14/19 03/14/19 03/14/19 02:02 02:03 02:18 Temperature 98.4 F 99.3 F 99.3 F Pulse Rate 107 H 96 H 96 H Respiratory 16 16 16 Rate Respiratory Rate [Back] Blood Pressure 127/79 111/62 111/62 Blood Pressure [Left] O2 Sat by Pulse 96 98 98 Oximetry 03/14/19 03/14/19 03/14/19 02:36 02:48 03:06 Temperature 99.0 F Pulse Rate 95 H Respiratory 17 17 17 Rate Respiratory Rate [Back] Blood Pressure 118/64 Blood Pressure [Left] O2 Sat by Pulse 97 Oximetry 03/14/19 03:18 Temperature 98.2 F Pulse Rate 93 H Respiratory 16 Rate Respiratory Rate [Back] Blood Pressure 122/84 Blood Pressure [Left] O2 Sat by Pulse 96 Oximetry General appearance: Present: no acute distress, mild distress, well-nourished - EENT Eyes: PERRL, EOM intact ENT: hearing intact, clear oral mucosa Ears: bilateral: normal - Neck Neck: supple, normal ROM - Respiratory Respiratory effort: normal Respiratory: bilateral: CTA - Cardiovascular Rhythm: regular Heart Sounds: Present: S1 & S2. Absent: gallop, rub Extremities: pulses intact, No edema, normal color, Full ROM - Gastrointestinal General gastrointestinal: Present: soft, non-tender, non-distended, normal bowel sounds Rectal Exam: deferred - Genitourinary Male genitourinary: deferred - Integumentary Integumentary: clear, warm, dry - Musculoskeletal Musculoskeletal: 1, strength equal bilaterally - Neurologic Neurologic: moves all extremities - Psychiatric Psychiatric: memory intact, appropriate mood/affect, intact judgment & insight - Labs CBC & Chem 7: 03/13/19 05:24 03/13/19 05:24 Labs: Abnormal lab results 03/13/19 03/13/19 Range/Units 05:24 05:24 WBC 23.9 H (4.5-11.0) K/mm3 RBC 2.17 L (3.65-5.03) M/mm3 Hgb 6.6 L (11.8-15.2) gm/dl Hct 19.6 L* (35.5-45.6) % RDW 20.3 H (13.2-15.2) % Seg Neuts % (Manual) 80.0 H (40.0-70.0) % Nucleated RBC % 3.0 H (0.0-0.9) % Seg Neutrophils # Man 19.1 H (1.8-7.7) K/mm3 Percent Retic 4.51 H (0.78-2.58) % Sodium 132 L (137-145) mmol/L Carbon Dioxide 19 L (22-30) mmol/L BUN 46 H (9-20) mg/dL Creatinine 3.2 H (0.8-1.5) mg/dL Glucose 119 H (75-100) mg/dL
[2019-03-14] MEDS: NACL 0.9% 1000 ML 1,000 ML IV SCH (06:01)
[2019-03-14] MEDS: ROCEPHIN/NS 1 GM/50 ML 1 GM/50 ML BAG IV SCH (10:00)
[2019-03-14] MEDS: TYLENOL PO PRN (10:00)
[2019-03-14] MEDS: XARELTO PO SCH (10:00)
--- NOTE | 2019-03-14 11:29 | Progress Note ---
Assessment and Plan - Patient Problems (1) ESRD (end stage renal disease) Current Visit: Yes Status: Acute Plan to address problem: cont HD on TTS schedule, according to his outpatient schedule (2) Anemia requiring transfusions Current Visit: No Status: Acute Plan to address problem: Hb improved to 7.7 s/p 2PRBC transfusion (3) Sickle cell pain crisis Current Visit: No Status: Acute Plan to address problem: pain control as per primary attending Subjective Date of service: 03/14/19 Principal diagnosis: /scd, pain crisis/ESRD. Interval history: pt in pain secondary to sickle cell crisis, pain control somewhat better on current meds Objective - Vital Signs Vital signs: Vital Signs - 12hr 03/13/19 03/14/19 03/14/19 23:52 00:33 02:02 Temperature 100.7 F H 98.4 F Pulse Rate 102 H 107 H Respiratory 17 18 16 Rate Blood Pressure 118/74 127/79 O2 Sat by Pulse 88 96 Oximetry 03/14/19 03/14/19 03/14/19 02:03 02:18 02:36 Temperature 99.3 F 99.3 F Pulse Rate 96 H 96 H Respiratory 16 16 17 Rate Blood Pressure 111/62 111/62 O2 Sat by Pulse 98 98 Oximetry 03/14/19 03/14/19 03/14/19 02:48 03:06 03:18 Temperature 99.0 F 98.2 F Pulse Rate 95 H 93 H Respiratory 17 17 16 Rate Blood Pressure 118/64 122/84 O2 Sat by Pulse 97 96 Oximetry 03/14/19 03/14/19 03/14/19 03:48 04:18 04:48 Temperature 98 F 98.2 F 98 F Pulse Rate 94 H 96 H 89 Respiratory 17 16 17 Rate Blood Pressure 120/82 119/68 118/76 O2 Sat by Pulse Oximetry 03/14/19 03/14/19 03/14/19 05:18 05:22 05:48 Temperature 97.9 F 97.6 F Pulse Rate 86 78 Respiratory 16 17 Rate Blood Pressure 120/76 120/78 O2 Sat by Pulse Oximetry 03/14/19 03/14/19 10:00 10:05 Temperature 99.5 F Pulse Rate 98 H Respiratory 18 Rate Blood Pressure 118/75 O2 Sat by Pulse 100 92 Oximetry - General Appearance General appearance: well-developed, cachectic, chronically ill, frail EENT: ATNC, PERRL, mucous membranes moist Neck: no JVD Respiratory: Present: Clear to Ascultation Cardiology: regular, S1S2 Gastrointestinal: normoactive bowel sounds Integumentary: no rash, other (no edema ) Neurologic: no focal deficit, alert and oriented x3, strength 5/5, CN 3-12 intact - Lab 03/13/19 05:24 03/13/19 05:24 Most recent lab results Calcium 8.6 mg/dL (8.4-10.2) 03/13/19 05:24 Medications & Allergies - Medications Allergies/Adverse Reactions: Allergies hydroxyzine HCl [From Vistaril] Allergy (Verified 10/24/15 07:44) Hives hydroxyzine pamoate [From Vistaril] Allergy (Verified 10/24/15 07:44) Hives Home Medications: Home Medications Medication Instructions Recorded Confirmed Last Taken Type Folic Acid [Folvite] 1 mg PO QDAY 05/08/15 03/09/19 03/08/19 History diphenhydrAMINE [Benadryl CAP] 25 mg PO Q6HR PRN 05/08/15 03/09/19 03/08/19 History Oxycodone HCl/Acetaminophen 1 each PO Q6HR PRN 10/14/15 03/09/19 03/08/19 History [Percocet 10/325 mg] Rivaroxaban [Xarelto] 20 mg PO QDAY 06/07/17 03/09/19 03/08/19 History Active Medications: Generic Name Dose Route Start Last Admin Trade Name Freq PRN Reason Stop Dose Admin Acetaminophen 650 mg 03/11/19 17:15 03/13/19 22:52 Tylenol PO 650 mg Q6H PRN Administration Fever >101 Diphenhydramine HCl 25 mg 03/09/19 11:07 03/14/19 01:35 Benadryl IV 25 mg Q6H PRN Administration Itching Docusate Sodium 100 mg 03/13/19 10:00 03/14/19 00:59 Colace PO Not Given BID JAMIN Hydromorphone HCl 3 mg 03/12/19 22:13 03/14/19 08:43 Dilaudid IV 3 mg Q3H PRN Administration Pain , Severe (7-10) Sodium Chloride 100 mls @ 999 mls/hr 03/09/19 10:08 Nacl 0.9% IV ALIVIA PRN Hypotension Sodium Chloride 1,000 mls @ 50 mls/hr 03/09/19 12:00 03/14/19 06:01 Nacl 0.9% 1000 Ml IV 75 mls/hr DIRECT JAMIN Administration Ceftriaxone Sodium 1 gm in 50 mls @ 100 mls/hr 03/10/19 19:32 03/13/19 11:28 Rocephin/Ns 1 Gm/50 Ml IV 100 mls/hr Q24HR JAMIN Administration Protocol Sodium Chloride 100 mls @ 999 mls/hr 03/12/19 07:16 Nacl 0.9% IV ALIVIA PRN Hypotension Vancomycin HCl 1 gm in 250 mls @ 125 mls/hr 03/13/19 20:00 03/13/19 23:02 Vancomycin/Ns 1 Gm/250 Ml IV 125 mls/hr TuThSa JAMIN Administration Protocol Lidocaine 1 each 03/11/19 14:00 03/13/19 11:28 Lidoderm 5% TD 1 each QDAY JAMIN Administration Oxycodone/Acetaminophen 2 tab 03/10/19 17:01 03/13/19 12:42 Percocet 5/325 PO 2 tab Q6H PRN Administration Pain, Moderate (4-6) Rivaroxaban 20 mg 03/10/19 10:00 03/13/19 11:28 Xarelto PO 20 mg QDAY JAMIN Administration Protocol Sodium Chloride 1 spray 03/13/19 09:00 03/13/19 11:28 Deep Sea NS 1 spray PRN PRN Administration Dry Nasal Passages
[2019-03-14] MEDS: LIDODERM 5% TD SCH (11:46)
--- NOTE | 2019-03-14 12:41 | Consultation ---
History of Present Illness - Reason for Consult Consult date: 03/14/19 - History of Present Illness 43 yo M PMHx sickle cell disease with ESRD on HD and bony infarcts presenting with hip and back pain. He notes the pain is associated with his sickle cell disease and is typical of his normal pain crises. He denied subjective fevers on admission and also denied other associated symptoms such as SOB, cough, and sputum production. Febrile during admission to 100.7, but more recently largely afebrile. Leukocytosis hovering around 24. Currently receiving vancomycin and ceftriaxone. Blood cultures from 03/09 and 03/11 are negative. Urine cultures from the same dates are also negative. Hepatitis serologies are negative. Imaging personally reviewed: 03/12 tib/fib Xray: L and R bone infarctions. Review of Systems: Bold if positive, otherwise negative General: fevers, chills, rigors HEENT: visual disturbance, diplopia, eye pain Respiratory: cough, sputum, hemoptysis, shortness of breath Cardiovascular: chest pain, syncope Gastrointestinal: nausea, vomiting, diarrhea, abdominal pain Genitourinary: dysuria, hematuria, flank pain Musculoskeletal: neck pain, back pain, joint pain, edema Neurologic: headaches, seizures Hematologic: easy bruising or bleeding Endocrine: night sweats, acute weight loss Skin: rash, jaundice, redness Psychiatric: suicidal, homicidal ideation Past History Past Medical History: anemia, renal failure, other (sickle cell disease ) Past Surgical History: arthroscopy, Other (hip surgery ) Social history: no significant social history, single, lives with family. denies: smoking, alcohol abuse, prescription drug abuse, IV drug use Family history: hypertension Medications and Allergies Allergies Allergy/AdvReac Type Severity Reaction Status Date / Time hydroxyzine HCl Allergy Hives Verified 10/24/15 07:44 [From Vistaril] hydroxyzine pamoate Allergy Hives Verified 10/24/15 07:44 [From Vistaril] Home Medications Medication Instructions Recorded Confirmed Last Taken Type Folic Acid [Folvite] 1 mg PO QDAY 05/08/15 03/09/19 03/08/19 History diphenhydrAMINE [Benadryl CAP] 25 mg PO Q6HR PRN 05/08/15 03/09/19 03/08/19 History Oxycodone HCl/Acetaminophen 1 each PO Q6HR PRN 10/14/15 03/09/19 03/08/19 History [Percocet 10/325 mg] Rivaroxaban [Xarelto] 20 mg PO QDAY 06/07/17 03/09/19 03/08/19 History Active Meds: Active Medications Acetaminophen (Tylenol) 650 mg PO Q6H PRN PRN Reason: Fever >101 Last Admin: 03/13/19 22:52 Dose: 650 mg Documented by: Diphenhydramine HCl (Benadryl) 25 mg IV Q6H PRN PRN Reason: Itching Last Admin: 03/14/19 01:35 Dose: 25 mg Documented by: Docusate Sodium (Colace) 100 mg PO BID JAMIN Last Admin: 03/14/19 11:46 Dose: 100 mg Documented by: Hydromorphone HCl (Dilaudid) 3 mg IV Q3H PRN PRN Reason: Pain , Severe (7-10) Last Admin: 03/14/19 11:47 Dose: 3 mg Documented by: Sodium Chloride (Nacl 0.9%) 100 mls @ 999 mls/hr IV ALIVIA PRN PRN Reason: Hypotension Sodium Chloride (Nacl 0.9% 1000 Ml) 1,000 mls @ 50 mls/hr IV DIRECT JAMIN Last Admin: 03/14/19 06:01 Dose: 75 mls/hr Documented by: Ceftriaxone Sodium (Rocephin/Ns 1 Gm/50 Ml) 1 gm in 50 mls @ 100 mls/hr IV Q24HR JAMIN; Protocol Last Admin: 03/13/19 11:28 Dose: 100 mls/hr Documented by: Sodium Chloride (Nacl 0.9%) 100 mls @ 999 mls/hr IV ALIVIA PRN PRN Reason: Hypotension Vancomycin HCl (Vancomycin/Ns 1 Gm/250 Ml) 1 gm in 250 mls @ 125 mls/hr IV TuThSa [facility]; Protocol Last Admin: 03/13/19 23:02 Dose: 125 mls/hr Documented by: Lidocaine (Lidoderm 5%) 1 each TD QDAY JAMIN Last Admin: 03/14/19 11:46 Dose: 1 each Documented by: Oxycodone/Acetaminophen (Percocet 5/325) 2 tab PO Q6H PRN PRN Reason: Pain, Moderate (4-6) Last Admin: 03/13/19 12:42 Dose: 2 tab Documented by: Rivaroxaban (Xarelto) 20 mg PO QDAY JAMIN; Protocol Last Admin: 03/13/19 11:28 Dose: 20 mg Documented by: Sodium Chloride (Deep Sea) 1 spray NS PRN PRN PRN Reason: Dry Nasal Passages Last Admin: 03/13/19 11:28 Dose: 1 spray Documented by: Physical Examination - Physical Exam Narrative exam: Constitutional: Alert, cooperative. No acute distress Head, Ears, Nose: Normocephalic, atraumatic. External ears, nose normal Eyes: Conjunctivae/corneas clear. No icterus. No ptosis. Neck: Supple, no meningeal signs Oral: dentition fair, no thrush Cardiovascular: S1, S2 normal. Respiratory: Good air entry, clear to auscultation bilaterally GI: Soft, non-tender; bowel sounds normal. No peritoneal signs. Musculoskeletal: generalized pain and sensitivity to movement and touch Skin: No rash or abscess Hem/Lymphatic: No palpable cervical or supraclavicular nodes. No lymphangitis Psych: Mood ok. Affect normal Neurological: Awake, alert, oriented. No gross abnormality - Constitutional Vitals: Vital Signs Temp Pulse Resp BP Pulse Ox 99.5 F 98 H 18 118/75 96 03/14/19 12:15 03/14/19 12:15 03/14/19 12:15 03/14/19 12:15 03/14/19 12:15 Temperature -Last 24 Hours Temperature 99.5 F Temperature 99.5 F Temperature 99.5 F Temperature 97.6 F Temperature 97.9 F Temperature 98 F Temperature 98.2 F Temperature 98 F Temperature 98.2 F Temperature 99.0 F Temperature 99.3 F Temperature 99.3 F Temperature 98.4 F Temperature 100.7 F Temperature 101.3 F Temperature 98.1 F Temperature 98.0 F Temperature 98.0 F Results - Labs CBC & Chem 7: 03/13/19 05:24 03/13/19 05:24 Assessment and Plan Cultures: 03/09 BCX NGTD 03/09 UCx Negative 03/11 BCx NGTD 03/11 UCx Negative A/P: 43 yo M PMHx sickle cell anemia, ESRD on HD admitted with vaso-occlusive crisis and bony pain. 1. SIRS - present on admission with leukocytosis and fever. Possibly non- infectious, it can be difficult to tell in sickle patients in a pain crisis. He lacks symptoms other that pain, so I would not recommend extensive imaging to search. Fever and leukocytosis can be brought on by a vaso-occlusive crisis. He has a number of bony infarcts in his legs as seen on the x-ray. That may be what's occurring in the back/his hips. Can change the ceftriaxone to cefepime in order to add Pseudomonas coverage, but would not treat for an extended period o f time. I do not think he would be able to tolerate much imaging at the present time. 2. ESRD on HD 3. Sickle Cell anemia 4. Vaso-occlusive crisis Recs: - continue vancomycin dosed per pharmacy. Appreciate their assistance. Goal trough 15-20. - stop ceftriaxone - start cefepime 2g q24h - follow up blood cultures. Thank you for the consult, we will continue to follow. Lauren Miles MD [facility] ([facility]) M: [phone] O: [phone] F: [phone]
[2019-03-14 19:00] LABS: Basophils # (Auto) 0.2 K/mm3 (0.0-0.1); Eosinophils # (Auto) 1.3 K/mm3 (0.0-0.4); Eosinophils % (Auto) 7.3 % (0.0-4.3); Hemoglobin 7.9 gm/dl (11.8-15.2); Lymphocytes # (Auto) 3.2 K/mm3 (1.2-5.4); Lymphocytes % (Auto) 17.6 % (13.4-35.0); Mean Corpuscular HGB Conc 33 % (32-34); Mean Corpuscular Volume 87 fl (84-94); Platelet Count 315 K/mm3 (140-440); Red Blood Count 2.76 M/mm3 (3.65-5.03); Red Cell Distribution Width 18.9 % (13.2-15.2)
[2019-03-14 19:12] LABS: Calcium 8.5 mg/dL (8.4-10.2)
[2019-03-15] MEDS: DILAUDID IV PRN ×6 (00:54→22:00)
[2019-03-15] MEDS: BENADRYL IV PRN ×3 (04:10→22:00)
[2019-03-15] MEDS: NACL 0.9% 1000 ML 1,000 ML IV SCH (04:10)
--- NOTE | 2019-03-15 08:42 | Progress Note ---
Assessment and Plan Cultures: 03/09 BCX NGTD 03/09 UCx Negative 03/11 BCx NGTD 03/11 UCx Negative A/P: 43 yo M PMHx sickle cell anemia, ESRD on HD admitted with vaso-occlusive crisis and bony pain. 1. SIRS - Improved. No fevers. Leukocytosis trending down. Possibly non- infectious, it can be difficult to tell in sickle patients in a pain crisis. He lacks symptoms other that pain, so I would not recommend extensive imaging to search. Fever and leukocytosis can be brought on by a vaso-occlusive crisis. He has a number of bony infarcts in his legs as seen on the x-ray. That may be what's occurring in the back/his hips. Can change the ceftriaxone to cefepime in order to add Pseudomonas coverage, but would not treat for an extended period of time. I do not think he would be able to tolerate much imaging at the present time. 2. ESRD on HD 3. Sickle Cell anemia 4. Vaso-occlusive crisis Recs: - continue vancomycin dosed per pharmacy. Appreciate their assistance. Goal trough 15-20. - continue cefepime 2g q24h Stella Montes NP [facility] M: [phone] O:[phone] Subjective Date of service: 03/15/19 Principal diagnosis: /scd, pain crisis/ESRD. Interval history: Patient seen and examined in HD. Asleep, easily arousable. Reports continued back pain. No fevers. Objective - Exam Narrative Exam: Constitutional: Asleep. Easy to arouse. Continued back pain. Head, Ears, Nose: Normocephalic, atraumatic. External ears, nose normal Eyes: Conjunctivae/corneas clear. No icterus. No ptosis. Neck: Supple, no meningeal signs Oral: dentition fair, no thrush Cardiovascular: S1, S2 normal. Respiratory: Good air entry, clear to auscultation bilaterally GI: Soft, non-tender; bowel sounds normal. No peritoneal signs. Musculoskeletal: generalized pain and sensitivity to movement and touch Skin: No rash or abscess Hem/Lymphatic: No palpable cervical or supraclavicular nodes. No lymphangitis Psych: Mood ok. Affect normal Neurological: Awake, alert, oriented. No gross abnormality - Constitutional Vitals: Vital Signs Temp Pulse Resp BP Pulse Ox 98.5 F 85 20 128/82 94 03/14/19 17:16 03/14/19 17:16 03/14/19 17:16 03/14/19 17:16 03/14/19 17:16 Temperature -Last 24 Hours Temperature 98.5 F Temperature 98.4 F Temperature 98.2 F Temperature 99.5 F Temperature 99.5 F - Labs CBC & Chem 7: 03/15/19 Unknown 03/14/19 18:20 Labs: Abnormal lab results 03/14/19 03/14/19 03/15/19 Range/Units 18:20 18:20 06:01 WBC 18.3 H (4.5-11.0) K/mm3 RBC 2.76 L (3.65-5.03) M/mm3 Hgb 7.9 L (11.8-15.2) gm/dl Hct 24.0 L (35.5-45.6) % RDW 18.9 H (13.2-15.2) % [place] % (Auto) 11.0 H (0.0-7.3) % Eos % (Auto) 7.3 H (0.0-4.3) % [place] # 2.0 H (0.0-0.8) K/mm3 Eos # 1.3 H (0.0-0.4) K/mm3 Baso # 0.2 H (0.0-0.1) K/mm3 Seg Neutrophils # 11.5 H (1.8-7.7) K/mm3 Percent Retic 2.87 H 3.12 H (0.78-2.58) % BUN 29 H (9-20) mg/dL Creatinine 2.3 H (0.8-1.5) mg/dL Glucose 107 H (75-100) mg/dL
[2019-03-15 09:33] LABS: Basophils # (Auto) 0.2 K/mm3 (0.0-0.1); Basophils % (Auto) 1.2 % (0.0-1.8); Eosinophils # (Auto) 1.7 K/mm3 (0.0-0.4); Eosinophils % (Auto) 9.5 % (0.0-4.3); Hemoglobin 7.4 gm/dl (11.8-15.2); Lymphocytes # (Auto) 2.7 K/mm3 (1.2-5.4); Lymphocytes % (Auto) 15.2 % (13.4-35.0); Mean Corpuscular HGB Conc 34 % (32-34); Mean Corpuscular Volume 86 fl (84-94); Monocytes # (Auto) 1.8 K/mm3 (0.0-0.8); Monocytes % (Auto) 9.9 % (0.0-7.3); Platelet Count 334 K/mm3 (140-440); Red Blood Count 2.55 M/mm3 (3.65-5.03); Red Cell Distribution Width 19.3 % (13.2-15.2)
[2019-03-15] MEDS: PERCOCET 5/325 PO PRN (11:36)
[2019-03-15] MEDS: MAXIPIME/NS 2 GM/100 ML 2 GM/100 ML BAG IV SCH (15:17)
[2019-03-15] MEDS: XARELTO PO SCH (15:17)
[2019-03-15] MEDS: LIDODERM 5% TD SCH (15:17)
[2019-03-15] MEDS: COLACE PO SCH ×2 (15:18→22:00)
--- NOTE | 2019-03-15 16:15 | Progress Note ---
Assessment and Plan - Patient Problems (1) ESRD (end stage renal disease) Current Visit: Yes Status: Acute Plan to address problem: cont HD on TTS schedule, according to his outpatient schedule (2) Anemia requiring transfusions Current Visit: No Status: Acute Plan to address problem: management as per hematology (3) Sickle cell pain crisis Current Visit: No Status: Acute Plan to address problem: pain control as per primary attending Subjective Date of service: 03/15/19 Principal diagnosis: /scd, pain crisis/ESRD. Interval history: pt in pain secondary to sickle cell crisis, pain control somewhat better on current meds Objective - Vital Signs Vital signs: Vital Signs - 12hr 03/15/19 03/15/19 03/15/19 06:09 09:30 09:50 Temperature 99.0 F 98.2 F Pulse Rate 94 H 70 62 Respiratory 16 16 Rate Blood Pressure 118/77 146/94 152/89 O2 Sat by Pulse 92 Oximetry 03/15/19 03/15/19 03/15/19 10:00 10:15 10:30 Temperature Pulse Rate 70 62 62 Respiratory Rate Blood Pressure 146/84 158/88 161/92 O2 Sat by Pulse Oximetry 03/15/19 03/15/19 03/15/19 10:45 11:00 11:15 Temperature Pulse Rate 64 62 58 L Respiratory Rate Blood Pressure 170/93 150/84 170/97 O2 Sat by Pulse Oximetry 03/15/19 03/15/19 03/15/19 11:30 11:36 11:45 Temperature Pulse Rate 56 L 48 L Respiratory 18 Rate Blood Pressure 180/100 191/103 O2 Sat by Pulse Oximetry 03/15/19 03/15/19 03/15/19 12:00 12:15 12:30 Temperature Pulse Rate 46 L 52 L 58 L Respiratory Rate Blood Pressure 177/101 186/111 167/97 O2 Sat by Pulse Oximetry 03/15/19 03/15/19 03/15/19 12:50 13:24 13:48 Temperature 98.2 F 99.0 F Pulse Rate 56 L 60 62 Respiratory 18 18 Rate Blood Pressure 139/78 145/88 156/85 O2 Sat by Pulse 94 Oximetry - General Appearance General appearance: cachectic, chronically ill, frail EENT: ATNC, PERRL, mucous membranes moist Neck: no JVD Respiratory: Present: Clear to Ascultation Cardiology: regular, S1S2 Gastrointestinal: normoactive bowel sounds Integumentary: no rash, other (no edema ) Neurologic: no focal deficit, alert and oriented x3, strength 5/5, CN 3-12 intact Psychiatric: mood/affect appropriate, cooperative - Lab 03/15/19 Unknown 03/14/19 18:20 Most recent lab results Calcium 8.5 mg/dL (8.4-10.2) 03/14/19 18:20 Medications & Allergies - Medications Allergies/Adverse Reactions: Allergies hydroxyzine HCl [From Vistaril] Allergy (Verified 10/24/15 07:44) Hives hydroxyzine pamoate [From Vistaril] Allergy (Verified 10/24/15 07:44) Hives Home Medications: Home Medications Medication Instructions Recorded Confirmed Last Taken Type Folic Acid [Folvite] 1 mg PO QDAY 05/08/15 03/09/19 03/08/19 History diphenhydrAMINE [Benadryl CAP] 25 mg PO Q6HR PRN 05/08/15 03/09/19 03/08/19 History Oxycodone HCl/Acetaminophen 1 each PO Q6HR PRN 10/14/15 03/09/19 03/08/19 History [Percocet 10/325 mg] Rivaroxaban [Xarelto] 20 mg PO QDAY 06/07/17 03/09/19 03/08/19 History Active Medications: Generic Name Dose Route Start Last Admin Trade Name Freq PRN Reason Stop Dose Admin Acetaminophen 650 mg 03/11/19 17:15 03/14/19 10:00 Tylenol PO 650 mg Q6H PRN Administration Fever >101 Diphenhydramine HCl 25 mg 03/09/19 11:07 03/15/19 14:34 Benadryl IV 25 mg Q6H PRN Administration Itching Docusate Sodium 100 mg 03/13/19 10:00 03/15/19 15:18 Colace PO 100 mg BID JAMIN Administration Hydromorphone HCl 3 mg 03/12/19 22:13 03/15/19 14:31 Dilaudid IV 3 mg Q3H PRN Administration Pain , Severe (7-10) Sodium Chloride 100 mls @ 999 mls/hr 03/09/19 10:08 Nacl 0.9% IV ALIVIA PRN Hypotension Sodium Chloride 1,000 mls @ 50 mls/hr 03/09/19 12:00 03/15/19 04:10 Nacl 0.9% 1000 Ml IV 75 mls/hr DIRECT JAMIN Administration Sodium Chloride 100 mls @ 999 mls/hr 03/12/19 07:16 Nacl 0.9% IV ALIVIA PRN Hypotension Vancomycin HCl 1 gm in 250 mls @ 125 mls/hr 03/13/19 20:00 03/13/19 23:02 Vancomycin/Ns 1 Gm/250 Ml IV 125 mls/hr TuThSa JAMIN Administration Protocol Cefepime HCl 2 gm in 100 mls @ 200 mls/hr 03/15/19 10:00 03/15/19 15:17 Maxipime/Ns 2 Gm/100 Ml IV 200 mls/hr Q24HR JAMIN Administration Protocol Lidocaine 1 each 03/11/19 14:00 03/15/19 15:17 Lidoderm 5% TD 1 each QDAY JAMIN Administration Oxycodone/Acetaminophen 2 tab 03/10/19 17:01 03/15/19 11:36 Percocet 5/325 PO 2 tab Q6H PRN Administration Pain, Moderate (4-6) Rivaroxaban 20 mg 03/10/19 10:00 03/15/19 15:17 Xarelto PO 20 mg QDAY JAMIN Administration Protocol Sodium Chloride 1 spray 03/13/19 09:00 03/13/19 11:28 Deep Sea NS 1 spray PRN PRN Administration Dry Nasal Passages
--- NOTE | 2019-03-15 17:16 | Progress Note ---
Assessment and Plan - Patient Problems (1) Anemia Current Visit: Yes Status: Acute Qualifiers: Anemia type: unspecified type Qualified Code(s): D64.9 - Anemia, unspecified Plan to address problem: Replacement transfusion. (2) ESRD (end stage renal disease) Current Visit: Yes Status: Acute Plan to address problem: Follow renal service. (3) DVT (deep venous thrombosis) Current Visit: No Status: Chronic Qualifiers: DVT location: lower extremity Chronicity: chronic Laterality: bilateral Plan to address problem: Anti coagulation., this was present on admission, (4) Vasoocclusive sickle cell crisis Current Visit: Yes Status: Acute Plan to address problem: Treat accordingly. (5) Anemia requiring transfusions Current Visit: No Status: Acute Plan to address problem: continue with replacement therapy. (6) SIRS due to non-infectious process without acute organ dysfunction Current Visit: Yes Status: Acute Plan to address problem: Follow ID REC. Subjective Date of service: 03/15/19 Principal diagnosis: /scd, pain crisis/ESRD. Interval history: Patient seen/examined, resting in bed, labs revuewed, case d/w patient. no new issues at this time. Patient seen/examined, resting in bed, labs ordered, No new issues at this time. Patient seen/examined, resting in bed, records reviewed,case d/w patient, and his mom at the bed side. patient , c/o pain not controlled at all, excruciating pain in the right sheen, i think it is due to severe infarction of the BM, due to crisis.I will get xray, and adjust his pain med, for few subsequent doses, to better control his pain.Will add boost plus to his nutrition. Patient seen/examined, resting in bed, records reviewed, case d/w patient. WBC up, despite IV ABX, will consult ID. continue to monitor cultures. Blood replacement transfusion ordered. Patient resting in bed, asleep, records reviewed, no change analyst night. orders were given, to proceed with transfusion of blood after pre med, and tem below 100. Patient seen/examined, resting in bed,, consult notes reviewed , case d/w patient.Will look into changing xeralto to Eliquis for renal reasons. Objective - Constitutional Vitals: Vital Signs - 12hr 03/15/19 03/15/19 03/15/19 06:09 09:30 09:50 Temperature 99.0 F 98.2 F Pulse Rate 94 H 70 62 Respiratory 16 16 Rate Blood Pressure 118/77 146/94 152/89 O2 Sat by Pulse 92 Oximetry 03/15/19 03/15/19 03/15/19 10:00 10:15 10:30 Temperature Pulse Rate 70 62 62 Respiratory Rate Blood Pressure 146/84 158/88 161/92 O2 Sat by Pulse Oximetry 03/15/19 03/15/19 03/15/19 10:45 11:00 11:15 Temperature Pulse Rate 64 62 58 L Respiratory Rate Blood Pressure 170/93 150/84 170/97 O2 Sat by Pulse Oximetry 03/15/19 03/15/19 03/15/19 11:30 11:36 11:45 Temperature Pulse Rate 56 L 48 L Respiratory 18 Rate Blood Pressure 180/100 191/103 O2 Sat by Pulse Oximetry 03/15/19 03/15/19 03/15/19 12:00 12:15 12:30 Temperature Pulse Rate 46 L 52 L 58 L Respiratory Rate Blood Pressure 177/101 186/111 167/97 O2 Sat by Pulse Oximetry 03/15/19 03/15/19 03/15/19 12:50 13:24 13:48 Temperature 98.2 F 99.0 F Pulse Rate 56 L 60 62 Respiratory 18 18 Rate Blood Pressure 139/78 145/88 156/85 O2 Sat by Pulse 94 Oximetry General appearance: Present: mild distress - EENT Eyes: PERRL, EOM intact ENT: hearing intact, clear oral mucosa Ears: bilateral: normal - Neck Neck: supple, normal ROM - Respiratory Respiratory effort: normal Respiratory: bilateral: CTA - Breasts Breasts: deferred - Cardiovascular Rhythm: regular Heart Sounds: Present: S1 & S2. Absent: gallop, rub Extremities: pulses intact, No edema, normal color, Full ROM - Gastrointestinal General gastrointestinal: Present: soft, non-tender, non-distended, normal bowel sounds Rectal Exam: deferred - Genitourinary Male genitourinary: deferred - Integumentary Integumentary: clear, warm, dry - Musculoskeletal Musculoskeletal: 1, strength equal bilaterally - Neurologic Neurologic: moves all extremities - Psychiatric Psychiatric: memory intact, appropriate mood/affect, intact judgment & insight - Labs CBC & Chem 7: 03/15/19 Unknown 03/14/19 18:20 Labs: Abnormal lab results 03/14/19 03/14/19 03/15/19 Range/Units 18:20 18:20 06:01 WBC 18.3 H (4.5-11.0) K/mm3 RBC 2.76 L (3.65-5.03) M/mm3 Hgb 7.9 L (11.8-15.2) gm/dl Hct 24.0 L (35.5-45.6) % RDW 18.9 H (13.2-15.2) % [place] % (Auto) 11.0 H (0.0-7.3) % Eos % (Auto) 7.3 H (0.0-4.3) % [place] # 2.0 H (0.0-0.8) K/mm3 Eos # 1.3 H (0.0-0.4) K/mm3 Baso # 0.2 H (0.0-0.1) K/mm3 Seg Neutrophils # 11.5 H (1.8-7.7) K/mm3 Percent Retic 2.87 H 3.12 H (0.78-2.58) % BUN 29 H (9-20) mg/dL Creatinine 2.3 H (0.8-1.5) mg/dL Glucose 107 H (75-100) mg/dL 03/15/19 Range/Units Unknown WBC 17.8 H (4.5-11.0) K/mm3 RBC 2.55 L (3.65-5.03) M/mm3 Hgb 7.4 L (11.8-15.2) gm/dl Hct 22.0 L (35.5-45.6) % RDW 19.3 H (13.2-15.2) % [place] % (Auto) 9.9 H (0.0-7.3) % Eos % (Auto) 9.5 H (0.0-4.3) % [place] # 1.8 H (0.0-0.8) K/mm3 Eos # 1.7 H (0.0-0.4) K/mm3 Baso # 0.2 H (0.0-0.1) K/mm3 Seg Neutrophils # 11.4 H (1.8-7.7) K/mm3 Percent Retic (0.78-2.58) % BUN (9-20) mg/dL Creatinine (0.8-1.5) mg/dL Glucose (75-100) mg/dL
[2019-03-15] MEDS: VANCOMYCIN/NS 1 GM/250 ML 1 GM/250 ML BAG IV SCH (20:35)
[2019-03-16] MEDS: DILAUDID IV PRN ×8 (00:57→23:29)
[2019-03-16] MEDS: BENADRYL IV PRN ×4 (03:54→23:35)
[2019-03-16] MEDS: NACL 0.9% 1000 ML 1,000 ML IV SCH ×2 (04:04→23:07)
--- NOTE | 2019-03-16 08:33 | Progress Note ---
Assessment and Plan Cultures: 03/09 BCX NGTD 03/09 UCx Negative 03/11 BCx NGTD 03/11 UCx Negative A/P: 43 yo M PMHx sickle cell anemia, ESRD on HD admitted with vaso-occlusive crisis and bony pain. 1. SIRS - Improved. No fevers. Leukocytosis continuing. Most likely non- infectious, it can be difficult to tell in sickle patients in a pain crisis. He lacks symptoms other that pain, so I would not recommend extensive imaging to search. Fever and leukocytosis can be brought on by a vaso-occlusive crisis. He has a number of bony infarcts in his legs as seen on the x-ray. Continuing joint and back pain reported. Will discontinue antibiotics for now and monitor. 2. ESRD on HD 3. Sickle Cell anemia 4. Vaso-occlusive crisis Recs: - Discontinue vancomycin and cefepime. - Monitor off antibiotics Dr. Miles will be reproduction order processor this weekend, . Please call for questions. [facility] M: [phone] O:[phone] Subjective Date of service: 03/16/19 Principal diagnosis: /scd, pain crisis/ESRD. Interval history: Patient seen and examined. Awake. Reports continued back pain and joint pain. No fevers. Objective - Exam Narrative Exam: Constitutional: Asleep. Easy to arouse. Continued joint pain Head, Ears, Nose: Normocephalic, atraumatic. External ears, nose normal Eyes: Conjunctivae/corneas clear. No icterus. No ptosis. Neck: Supple, no meningeal signs Oral: dentition fair, no thrush Cardiovascular: S1, S2 normal. Respiratory: Good air entry, clear to auscultation bilaterally GI: Soft, non-tender; bowel sounds normal. No peritoneal signs. Musculoskeletal: generalized pain and sensitivity to movement and touch Skin: No rash or abscess Hem/Lymphatic: No palpable cervical or supraclavicular nodes. No lymphangitis Psych: Mood ok. Affect normal Neurological: Awake, alert, oriented. No gross abnormality - Constitutional Vitals: Vital Signs Temp Pulse Resp BP Pulse Ox 98.8 F 98 H 18 133/86 95 03/16/19 06:19 03/16/19 06:19 03/16/19 06:19 03/16/19 06:19 03/15/19 22:38 Temperature -Last 24 Hours Temperature 98.8 F Temperature 99.1 F Temperature 98.2 F Temperature 99.0 F Temperature 98.2 F Temperature 98.2 F - Labs CBC & Chem 7: 03/16/19 11:40 03/14/19 18:20 Labs: Abnormal lab results 03/15/19 Range/Units Unknown WBC 17.8 H (4.5-11.0) K/mm3 RBC 2.55 L (3.65-5.03) M/mm3 Hgb 7.4 L (11.8-15.2) gm/dl Hct 22.0 L (35.5-45.6) % RDW 19.3 H (13.2-15.2) % [place] % (Auto) 9.9 H (0.0-7.3) % Eos % (Auto) 9.5 H (0.0-4.3) % [place] # 1.8 H (0.0-0.8) K/mm3 Eos # 1.7 H (0.0-0.4) K/mm3 Baso # 0.2 H (0.0-0.1) K/mm3 Seg Neutrophils # 11.4 H (1.8-7.7) K/mm3
[2019-03-16] MEDS: XARELTO PO SCH (09:39)
[2019-03-16] MEDS: COLACE PO SCH ×2 (09:40→23:28)
[2019-03-16] MEDS: MAXIPIME/NS 2 GM/100 ML 2 GM/100 ML BAG IV SCH (09:41)
[2019-03-16] MEDS: LIDODERM 5% TD SCH (09:41)
[2019-03-16 11:59] LABS: Basophils # (Auto) 0.3 K/mm3 (0.0-0.1); Basophils % (Auto) 1.4 % (0.0-1.8); Eosinophils # (Auto) 1.4 K/mm3 (0.0-0.4); Eosinophils % (Auto) 7.5 % (0.0-4.3); Hematocrit 21.8 % (35.5-45.6); Hemoglobin 7.2 gm/dl (11.8-15.2); Lymphocytes # (Auto) 2.7 K/mm3 (1.2-5.4); Lymphocytes % (Auto) 15.1 % (13.4-35.0); Mean Corpuscular HGB Conc 33 % (32-34); Mean Corpuscular Volume 86 fl (84-94); Monocytes # (Auto) 1.8 K/mm3 (0.0-0.8); Monocytes % (Auto) 9.8 % (0.0-7.3); Platelet Count 437 K/mm3 (140-440); Red Blood Count 2.55 M/mm3 (3.65-5.03); Red Cell Distribution Width 18.7 % (13.2-15.2)
--- NOTE | 2019-03-16 15:10 | Progress Note ---
Assessment and Plan - Patient Problems (1) ESRD (end stage renal disease) Current Visit: Yes Status: Acute Plan to address problem: cont HD on TTS schedule, according to his outpatient schedule (2) Anemia requiring transfusions Current Visit: No Status: Acute Plan to address problem: management as per hematology, s/p 4 PRBC transfusion during this hospitalization (3) Sickle cell pain crisis Current Visit: No Status: Acute Plan to address problem: pain control as per primary attending (4) SIRS due to non-infectious process without acute organ dysfunction Current Visit: Yes Status: Acute Plan to address problem: SIRS most likely secondary to underlying sickle cell disease. no further need for ABXs. appreciate ID recommendations. Subjective Date of service: 03/16/19 Principal diagnosis: /scd, pain crisis/ESRD. Interval history: pt in pain secondary to sickle cell crisis, pain control somewhat better on current meds Objective - Vital Signs Vital signs: Vital Signs - 12hr 03/16/19 03/16/19 03/16/19 06:19 10:00 12:04 Temperature 98.8 F 98.3 F Pulse Rate 98 H 82 Respiratory 18 16 Rate Blood Pressure 144/83 Blood Pressure 133/86 [Left] O2 Sat by Pulse 93 88 Oximetry - General Appearance General appearance: cachectic, chronically ill, frail EENT: ATNC, PERRL, mucous membranes moist Neck: no JVD Respiratory: Present: Clear to Ascultation Cardiology: regular, S1S2 Gastrointestinal: normoactive bowel sounds Integumentary: no rash, other (no edema ) Neurologic: no focal deficit, alert and oriented x3, strength 5/5, CN 3-12 intac t Psychiatric: mood/affect appropriate, cooperative - Lab 03/16/19 11:40 03/14/19 18:20 Most recent lab results Calcium 8.5 mg/dL (8.4-10.2) 03/14/19 18:20 Medications & Allergies - Medications Allergies/Adverse Reactions: Allergies hydroxyzine HCl [From Vistaril] Allergy (Verified 10/24/15 07:44) Hives hydroxyzine pamoate [From Vistaril] Allergy (Verified 10/24/15 07:44) Hives Home Medications: Home Medications Medication Instructions Recorded Confirmed Last Taken Type Folic Acid [Folvite] 1 mg PO QDAY 05/08/15 03/09/19 03/08/19 History diphenhydrAMINE [Benadryl CAP] 25 mg PO Q6HR PRN 05/08/15 03/09/19 03/08/19 History Oxycodone HCl/Acetaminophen 1 each PO Q6HR PRN 10/14/15 03/09/19 03/08/19 History [Percocet 10/325 mg] Rivaroxaban [Xarelto] 20 mg PO QDAY 06/07/17 03/09/19 03/08/19 History Active Medications: Generic Name Dose Route Start Last Admin Trade Name Jaymeq PRN Reason Stop Dose Admin Acetaminophen 650 mg 03/11/19 17:15 03/14/19 10:00 Tylenol PO 650 mg Q6H PRN Administration Fever >101 Diphenhydramine HCl 25 mg 03/09/19 11:07 03/16/19 10:32 Benadryl IV 25 mg Q6H PRN Administration Itching Docusate Sodium 100 mg 03/13/19 10:00 03/16/19 09:40 Colace PO Not Given BID JAMIN Hydromorphone HCl 3 mg 03/12/19 22:13 03/16/19 14:21 Dilaudid IV 3 mg Q3H PRN Administration Pain , Severe (7-10) Sodium Chloride 1,000 mls @ 50 mls/hr 03/09/19 12:00 03/16/19 04:04 Nacl 0.9% 1000 Ml IV 75 mls/hr DIRECT JAMIN Administration Sodium Chloride 100 mls @ 999 mls/hr 03/12/19 07:16 Nacl 0.9% IV ALIVIA PRN Hypotension Lidocaine 1 each 03/11/19 14:00 03/16/19 09:41 Lidoderm 5% TD 1 each QDAY JAMIN Administration Oxycodone/Acetaminophen 2 tab 03/10/19 17:01 03/15/19 11:36 Percocet 5/325 PO 2 tab Q6H PRN Administration Pain, Moderate (4-6) Rivaroxaban 20 mg 03/10/19 10:00 03/16/19 09:39 Xarelto PO 20 mg QDAY JAMIN Administration Protocol Sodium Chloride 1 spray 03/13/19 09:00 03/13/19 11:28 Deep Sea NS 1 spray PRN PRN Administration Dry Nasal Passages
--- NOTE | 2019-03-16 19:30 | Progress Note ---
Assessment and Plan - Patient Problems (1) Anemia Current Visit: Yes Status: Acute Qualifiers: Anemia type: unspecified type Qualified Code(s): D64.9 - Anemia, unspecified Plan to address problem: Replacement transfusion. (2) ESRD (end stage renal disease) Current Visit: Yes Status: Acute Plan to address problem: Follow renal service. (3) DVT (deep venous thrombosis) Current Visit: No Status: Chronic Qualifiers: DVT location: lower extremity Chronicity: chronic Laterality: bilateral Plan to address problem: Anti coagulation., this was present on admission, (4) Vasoocclusive sickle cell crisis Current Visit: Yes Status: Acute Plan to address problem: Treat accordingly. (5) Anemia requiring transfusions Current Visit: No Status: Acute Plan to address problem: continue with replacement therapy. (6) SIRS due to non-infectious process without acute organ dysfunction Current Visit: Yes Status: Acute Plan to address problem: Follow ID REC. Subjective Date of service: 03/16/19 Principal diagnosis: /scd, pain crisis/ESRD. Interval history: Patient seen/examined, resting in bed, labs revuewed, case d/w patient. no new issues at this time. Patient seen/examined, resting in bed, labs ordered, No new issues at this time. Patient seen/examined, resting in bed, records reviewed,case d/w patient, and his mom at the bed side. patient , c/o pain not controlled at all, excruciating pain in the right sheen, i think it is due to severe infarction of the BM, due to crisis.I will get xray, and adjust his pain med, for few subsequent doses, to better control his pain.Will add boost plus to his nutrition. Patient seen/examined, resting in bed, records reviewed, case d/w patient. WBC up, despite IV ABX, will consult ID. continue to monitor cultures. Blood replacement transfusion ordered. 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 orders were given, to proceed with transfusion of blood after pre med, and tem below 100. Patient seen/examined, resting in bed,, consult notes reviewed , case d/w patient.Will look into changing xeralto to Eliquis for renal reasons. Patient seen/examined, resting in bed,labs reviewed, improving.Case dw/patient.Continue to with pain control. Objective - Constitutional Vitals: Vital Signs - 12hr 03/16/19 03/16/19 03/16/19 10:00 12:04 16:54 Temperature 98.3 F 98.7 F Pulse Rate 82 101 H Respiratory 16 16 Rate Blood Pressure 144/83 142/91 O2 Sat by Pulse 93 88 91 Oximetry General appearance: Present: mild distress, cachectic - EENT Eyes: PERRL, EOM intact ENT: hearing intact, clear oral mucosa Ears: bilateral: normal - Neck Neck: supple, normal ROM - Respiratory Respiratory effort: normal Respiratory: bilateral: CTA - Breasts Breasts: deferred - Cardiovascular Rhythm: regular Heart Sounds: Present: S1 & S2. Absent: gallop, rub Extremities: pulses intact, No edema, normal color, Full ROM - Gastrointestinal General gastrointestinal: Present: soft, non-tender, non-distended, normal bowel sounds Rectal Exam: deferred - Genitourinary Male genitourinary: deferred - Integumentary Integumentary: clear, warm, dry - Musculoskeletal Musculoskeletal: 1, strength equal bilaterally - Neurologic Neurologic: moves all extremities - Psychiatric Psychiatric: memory intact, appropriate mood/affect, intact judgment & insight - Labs CBC & Chem 7: 03/16/19 11:40 03/14/19 18:20 Labs: Abnormal lab results 03/16/19 Range/Units 11:40 WBC 18.0 H (4.5-11.0) K/mm3 RBC 2.55 L (3.65-5.03) M/mm3 Hgb 7.2 L (11.8-15.2) gm/dl Hct 21.8 L (35.5-45.6) % RDW 18.7 H (13.2-15.2) % [place] % (Auto) 9.8 H (0.0-7.3) % Eos % (Auto) 7.5 H (0.0-4.3) % [place] # 1.8 H (0.0-0.8) K/mm3 Eos # 1.4 H (0.0-0.4) K/mm3 Baso # 0.3 H (0.0-0.1) K/mm3 Seg Neutrophils # 11.9 H (1.8-7.7) K/mm3
[2019-03-16] MEDS: ELIQUIS PO SCH (22:48)
[2019-03-17] MEDS: DILAUDID IV PRN ×7 (02:32→21:39)
[2019-03-17] MEDS: BENADRYL IV PRN ×3 (05:44→18:28)
[2019-03-17 06:06] LABS: Calcium 8.7 mg/dL (8.4-10.2)
[2019-03-17] MEDS: COLACE PO SCH ×2 (09:00→22:56)
[2019-03-17] MEDS: ELIQUIS PO SCH ×2 (09:01→21:39)
[2019-03-17] MEDS: LIDODERM 5% TD SCH (09:01)
[2019-03-17] MEDS ORDERED: NACL 0.9 (PRIMING MACHINE ONLY DIALYSIS) MC ONE (11:49)
--- NOTE | 2019-03-17 14:27 | Progress Note ---
Assessment and Plan - Patient Problems (1) ESRD (end stage renal disease) Current Visit: Yes Status: Acute Plan to address problem: Dialysis on a Tuesday, and Tuesday schedule. Continue to monitor for signs of renal recovery (2) Vasoocclusive sickle cell crisis Current Visit: Yes Status: Acute Plan to address problem: Improving. Continue Analgesics (3) Sickle cell pain crisis Current Visit: No Status: Acute Plan to address problem: Continue analgesics and oral hydration (4) Hemolytic crisis Current Visit: Yes Status: Acute Plan to address problem: Status post 4 units packed red blood cells transfusion. Follow-up hemoglobin Subjective Date of service: 03/17/19 Principal diagnosis: /scd, pain crisis/ESRD. Interval history: Patient seen lying in bed. Had dialysis earlier. Still complains of pain in his back and his legs. Objective - Exam Narrative Exam: Younger -[place] male lying in bed in no acute distress HEENT: NCAT, pink oral mucous membrane Neck: Supple, no venous distention CVS: S1S2 RRR with no murmur, rub or gallop Chest: Clear to auscultation Abdomen: Protuberant, soft, nontender, no organomegaly, bowel sounds are present Extremities: No edema Neuro: Awake, alert no focal deficits - Vital Signs Vital signs: Vital Signs - 12hr 03/17/19 03/17/19 03/17/19 05:37 06:11 09:45 Temperature 100.0 F H 99.7 F H Pulse Rate 107 H 103 H 89 Respiratory 20 18 16 Rate Blood Pressure 129/83 141/96 O2 Sat by Pulse 82 L 95 Oximetry O2 Sat by Pulse 97 Oximetry [ Anterior Bilateral Throughout] O2 Sat by Pulse 97 Oximetry [ Posterior Bilateral Throughout] 03/17/19 03/17/19 03/17/19 09:53 10:00 10:15 Temperature Pulse Rate 86 81 77 Respiratory Rate Blood Pressure 139/101 139/94 133/88 O2 Sat by Pulse Oximetry O2 Sat by Pulse Oximetry [ Anterior Bilateral Throughout] O2 Sat by Pulse Oximetry [ Posterior Bilateral Throughout] 03/17/19 03/17/19 03/17/19 10:30 10:45 11:00 Temperature Pulse Rate 81 77 75 Respiratory Rate Blood Pressure 139/95 141/94 142/95 O2 Sat by Pulse Oximetry O2 Sat by Pulse Oximetry [ Anterior Bilateral Throughout] O2 Sat by Pulse Oximetry [ Posterior Bilateral Throughout] 03/17/19 03/17/19 03/17/19 11:15 11:30 11:45 Temperature Pulse Rate 77 99 H 78 Respiratory Rate Blood Pressure 148/94 145/100 150/90 O2 Sat by Pulse Oximetry O2 Sat by Pulse Oximetry [ Anterior Bilateral Throughout] O2 Sat by Pulse Oximetry [ Posterior Bilateral Throughout] 03/17/19 03/17/19 03/17/19 12:00 12:15 12:30 Temperature Pulse Rate 73 79 70 Respiratory 16 Rate Blood Pressure 164/90 153/88 137/82 O2 Sat by Pulse Oximetry O2 Sat by Pulse Oximetry [ Anterior Bilateral Throughout] O2 Sat by Pulse Oximetry [ Posterior Bilateral Throughout] 03/17/19 03/17/19 03/17/19 12:45 12:53 13:07 Temperature 98.7 F Pulse Rate 73 91 H 72 Respiratory 16 Rate Blood Pressure 121/76 156/92 152/94 O2 Sat by Pulse Oximetry O2 Sat by Pulse 96 Oximetry [ Anterior Bilateral Throughout] O2 Sat by Pulse Oximetry [ Posterior Bilateral Throughout] 03/17/19 13:40 Temperature 99.1 F Pulse Rate 78 Respiratory 18 Rate Blood Pressure 142/87 O2 Sat by Pulse 93 Oximetry O2 Sat by Pulse Oximetry [ Anterior Bilateral Throughout] O2 Sat by Pulse Oximetry [ Posterior Bilateral Throughout] - Lab 03/16/19 11:40 03/17/19 05:30 Most recent lab results Calcium 8.7 mg/dL (8.4-10.2) 03/17/19 05:30 Medications & Allergies - Medications Allergies/Adverse Reactions: Allergies hydroxyzine HCl [From Vistaril] Allergy (Verified 10/24/15 07:44) Hives hydroxyzine pamoate [From Vistaril] Allergy (Verified 10/24/15 07:44) Hives Home Medications: Home Medications Medication Instructions Recorded Confirmed Last Taken Type Folic Acid [Folvite] 1 mg PO QDAY 05/08/15 03/09/19 03/08/19 History diphenhydrAMINE [Benadryl CAP] 25 mg PO Q6HR PRN 05/08/15 03/09/19 03/08/19 History Oxycodone HCl/Acetaminophen 1 each PO Q6HR PRN 10/14/15 03/09/19 03/08/19 History [Percocet 10/325 mg] Rivaroxaban [Xarelto] 20 mg PO QDAY 06/07/17 03/09/19 03/08/19 History Active Medications: Generic Name Dose Route Start Last Admin Trade Name Freq PRN Reason Stop Dose Admin Acetaminophen 650 mg 03/11/19 17:15 03/14/19 10:00 Tylenol PO 650 mg Q6H PRN Administration Fever >101 Apixaban 2.5 mg 03/16/19 22:00 03/17/19 09:01 Eliquis PO 2.5 mg Q12HR JAMIN Administration Protocol Diphenhydramine HCl 25 mg 03/09/19 11:07 03/17/19 12:00 Benadryl IV 25 mg Q6H PRN Administration Itching Docusate Sodium 100 mg 03/13/19 10:00 03/17/19 09:00 Colace PO Not Given BID JAMIN Hydromorphone HCl 3 mg 03/12/19 22:13 03/17/19 12:00 Dilaudid IV 3 mg Q3H PRN Administration Pain , Severe (7-10) Sodium Chloride 1,000 mls @ 50 mls/hr 03/09/19 12:00 03/16/19 23:07 Nacl 0.9% 1000 Ml IV 75 mls/hr DIRECT JAMIN Administration Sodium Chloride 100 mls @ 999 mls/hr 03/12/19 07:16 Nacl 0.9% IV ALIVIA PRN Hypotension Lidocaine 1 each 03/11/19 14:00 03/17/19 09:01 Lidoderm 5% TD 1 each QDAY JAMIN Administration Oxycodone/Acetaminophen 2 tab 03/10/19 17:01 03/15/19 11:36 Percocet 5/325 PO 2 tab Q6H PRN Administration Pain, Moderate (4-6) Sodium Chloride 1 spray 03/13/19 09:00 03/13/19 11:28 Deep Sea NS 1 spray PRN PRN Administration Dry Nasal Passages
--- NOTE | 2019-03-17 19:05 | Progress Note ---
Assessment and Plan - Patient Problems (1) Anemia Current Visit: Yes Status: Acute Qualifiers: Anemia type: unspecified type Qualified Code(s): D64.9 - Anemia, unspecified Plan to address problem: Replacement transfusion. (2) ESRD (end stage renal disease) Current Visit: Yes Status: Acute Plan to address problem: Follow renal service. (3) DVT (deep venous thrombosis) Current Visit: No Status: Chronic Qualifiers: DVT location: lower extremity Chronicity: chronic Laterality: bilateral Plan to address problem: Anti coagulation., this was present on admission, (4) Vasoocclusive sickle cell crisis Current Visit: Yes Status: Acute Plan to address problem: Treat accordingly. (5) Anemia requiring transfusions Current Visit: No Status: Acute Plan to address problem: continue with replacement therapy. (6) SIRS due to non-infectious process without acute organ dysfunction Current Visit: Yes Status: Acute Plan to address problem: Follow ID REC. Subjective Date of service: 03/17/19 Principal diagnosis: /scd, pain crisis/ESRD. Interval history: Patient seen/examined, resting in bed, labs revuewed, case d/w patient. no new issues at this time. Patient seen/examined, resting in bed, labs ordered, No new issues at this time. Patient seen/examined, resting in bed, records reviewed,case d/w patient, and his mom at the bed side. patient , c/o pain not controlled at all, excruciating pain in the right sheen, i think it is due to severe infarction of the BM, due to crisis.I will get xray, and adjust his pain med, for few subsequent doses, to better control his pain.Will add boost plus to his nutrition. Patient seen/examined, resting in bed, records reviewed, case d/w patient. WBC up, despite IV ABX, will consult ID. continue to monitor cultures. Blood replacement transfusion ordered. 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 orders were given, to proceed with transfusion of blood after pre med, and tem below 100. Patient seen/examined, resting in bed,, consult notes reviewed , case d/w patient.Will look into changing xeralto to Eliquis for renal reasons. Patient seen/examined, resting in bed,labs reviewed, improving.Case dw/patient.Continue to with pain control. Patient seen/examined, resting in bed, labs ordered for tomorrow. notes reviewed, case d/w patient. Objective - Constitutional Vitals: Vital Signs - 12hr 03/17/19 03/17/19 03/17/19 09:45 09:53 10:00 Temperature 99.7 F H Pulse Rate 89 86 81 Respiratory 16 Rate Blood Pressure 141/96 139/101 139/94 O2 Sat by Pulse Oximetry O2 Sat by Pulse 97 Oximetry [ Anterior Bilateral Throughout] O2 Sat by Pulse 97 Oximetry [ Posterior Bilateral Throughout] 03/17/19 03/17/19 03/17/19 10:15 10:30 10:45 Temperature Pulse Rate 77 81 77 Respiratory Rate Blood Pressure 133/88 139/95 141/94 O2 Sat by Pulse Oximetry O2 Sat by Pulse Oximetry [ Anterior Bilateral Throughout] O2 Sat by Pulse Oximetry [ Posterior Bilateral Throughout] 03/17/19 03/17/19 03/17/19 11:00 11:15 11:30 Temperature Pulse Rate 75 77 99 H Respiratory Rate Blood Pressure 142/95 148/94 145/100 O2 Sat by Pulse Oximetry O2 Sat by Pulse Oximetry [ Anterior Bilateral Throughout] O2 Sat by Pulse Oximetry [ Posterior Bilateral Throughout] 03/17/19 03/17/19 03/17/19 11:45 12:00 12:15 Temperature Pulse Rate 78 73 79 Respiratory 16 Rate Blood Pressure 150/90 164/90 153/88 O2 Sat by Pulse Oximetry O2 Sat by Pulse Oximetry [ Anterior Bilateral Throughout] O2 Sat by Pulse Oximetry [ Posterior Bilateral Throughout] 03/17/19 03/17/19 03/17/19 12:30 12:45 12:53 Temperature Pulse Rate 70 73 91 H Respiratory Rate Blood Pressure 137/82 121/76 156/92 O2 Sat by Pulse Oximetry O2 Sat by Pulse Oximetry [ Anterior Bilateral Throughout] O2 Sat by Pulse Oximetry [ Posterior Bilateral Throughout] 03/17/19 03/17/19 03/17/19 13:07 13:40 17:59 Temperature 98.7 F 99.1 F 98.5 F Pulse Rate 72 78 80 Respiratory 16 18 18 Rate Blood Pressure 152/94 142/87 140/88 O2 Sat by Pulse 93 93 Oximetry O2 Sat by Pulse 96 Oximetry [ Anterior Bilateral Throughout] O2 Sat by Pulse Oximetry [ Posterior Bilateral Throughout] General appearance: Present: mild distress, cachectic - EENT Eyes: PERRL, EOM intact ENT: hearing intact, clear oral mucosa Ears: bilateral: normal - Neck Neck: supple, normal ROM - Respiratory Respiratory effort: normal Respiratory: bilateral: CTA - Breasts Breasts: deferred - Cardiovascular Rhythm: regular Heart Sounds: Present: S1 & S2. Absent: gallop, rub Extremities: pulses intact, No edema, normal color, Full ROM - Gastrointestinal General gastrointestinal: Present: soft, non-tender, non-distended, normal bowel sounds Rectal Exam: deferred - Genitourinary Male genitourinary: deferred - Integumentary Integumentary: clear, warm, dry - Musculoskeletal Musculoskeletal: 1, strength equal bilaterally - Neurologic Neurologic: moves all extremities - Psychiatric Psychiatric: memory intact, appropriate mood/affect, intact judgment & insight - Labs CBC & Chem 7: 03/16/19 11:40 03/17/19 05:30 Labs: Abnormal lab results 03/17/19 Range/Units 05:30 Sodium 134 L (137-145) mmol/L BUN 27 H (9-20) mg/dL Creatinine 2.4 H (0.8-1.5) mg/dL Glucose 127 H (75-100) mg/dL
[2019-03-17] MEDS: NACL 0.9% 1000 ML 1,000 ML IV SCH (23:02)
[2019-03-18] MEDS: BENADRYL IV PRN ×3 (00:36→18:53)
[2019-03-18] MEDS: DILAUDID IV PRN ×8 (00:37→22:02)
[2019-03-18 06:06] LABS: Basophils # (Auto) 0.3 K/mm3 (0.0-0.1); Basophils % (Auto) 1.7 % (0.0-1.8); Eosinophils # (Auto) 1.2 K/mm3 (0.0-0.4); Eosinophils % (Auto) 6.7 % (0.0-4.3); Hemoglobin 6.4 gm/dl (11.8-15.2); Lymphocytes # (Auto) 2.6 K/mm3 (1.2-5.4); Lymphocytes % (Auto) 15.3 % (13.4-35.0); Mean Corpuscular HGB Conc 34 % (32-34); Mean Corpuscular Volume 86 fl (84-94); Monocytes # (Auto) 2.2 K/mm3 (0.0-0.8); Monocytes % (Auto) 12.6 % (0.0-7.3); Platelet Count 499 K/mm3 (140-440); Red Blood Count 2.22 M/mm3 (3.65-5.03); Red Cell Distribution Width 18.7 % (13.2-15.2)
[2019-03-18 06:48] LABS: Hematocrit 19.1 % (35.5-45.6)
[2019-03-18] MEDS ORDERED: NACL 0.9% 500 ML 500 ML IV ONE ×2 (07:42→14:00)
[2019-03-18] MEDS: LIDODERM 5% TD SCH (09:42)
[2019-03-18] MEDS: COLACE PO SCH ×3 (09:43→22:02)
[2019-03-18] MEDS: ELIQUIS PO SCH ×2 (09:43→22:01)
--- NOTE | 2019-03-18 11:40 | Progress Note ---
Assessment and Plan - Patient Problems (1) ESRD (end stage renal disease) Current Visit: Yes Status: Acute Plan to address problem: Dialysis on a Tuesday, and Tuesday schedule. Continue to monitor for signs of renal recovery (2) Vasoocclusive sickle cell crisis Current Visit: Yes Status: Acute Plan to address problem: Improving. Continue Analgesics (3) Sickle cell pain crisis Current Visit: No Status: Acute Plan to address problem: Continue analgesics and oral hydration (4) Hemolytic crisis Current Visit: Yes Status: Acute Plan to address problem: Status post 4 units packed red blood cells transfusion. Follow-up hemoglobin Subjective Date of service: 03/18/19 Principal diagnosis: /scd, pain crisis/ESRD. Interval history: Patient seen lying in bed. Had dialysis yesterday. Still complains of pain in his back and his legs. Objective - Exam Narrative Exam: Younger -[place] male lying in bed in no acute distress HEENT: NCAT, pink oral mucous membrane Neck: Supple, no venous distention CVS: S1S2 RRR with no murmur, rub or gallop Chest: Clear to auscultation Abdomen: Protuberant, soft, nontender, no organomegaly, bowel sounds are present Extremities: No edema Neuro: Awake, alert no focal deficits - Vital Signs Vital signs: Vital Signs - 12hr 03/18/19 06:13 Temperature 98.9 F Pulse Rate 99 H Respiratory 20 Rate Blood Pressure 141/89 O2 Sat by Pulse 87 Oximetry - Lab 03/18/19 05:20 03/18/19 05:20 Most recent lab results Calcium 8.0 mg/dL (8.4-10.2) L 03/18/19 05:20 Medications & Allergies - Medications Allergies/Adverse Reactions: Allergies hydroxyzine HCl [From Vistaril] Allergy (Verified 10/24/15 07:44) Hives hydroxyzine pamoate [From Vistaril] Allergy (Verified 10/24/15 07:44) Hives Home Medications: Home Medications Medication Instructions Recorded Confirmed Last Taken Type Folic Acid [Folvite] 1 mg PO QDAY 05/08/15 03/09/19 03/08/19 History diphenhydrAMINE [Benadryl CAP] 25 mg PO Q6HR PRN 05/08/15 03/09/19 03/08/19 History Oxycodone HCl/Acetaminophen 1 each PO Q6HR PRN 10/14/15 03/09/19 03/08/19 History [Percocet 10/325 mg] Rivaroxaban [Xarelto] 20 mg PO QDAY 06/07/17 03/09/19 03/08/19 History Active Medications: Generic Name Dose Route Start Last Admin Trade Name Freq PRN Reason Stop Dose Admin Acetaminophen 650 mg 03/11/19 17:15 03/14/19 10:00 Tylenol PO 650 mg Q6H PRN Administration Fever >101 Apixaban 2.5 mg 03/16/19 22:00 03/18/19 09:43 Eliquis PO 2.5 mg Q12HR JAMIN Administration Protocol Diphenhydramine HCl 25 mg 03/09/19 11:07 03/18/19 06:35 Benadryl IV 25 mg Q6H PRN Administration Itching Docusate Sodium 100 mg 03/13/19 10:00 03/18/19 09:51 Colace PO Not Given BID JAMIN Hydromorphone HCl 3 mg 03/12/19 22:13 03/18/19 09:43 Dilaudid IV 3 mg Q3H PRN Administration Pain , Severe (7-10) Sodium Chloride 1,000 mls @ 50 mls/hr 03/09/19 12:00 03/17/19 23:02 Nacl 0.9% 1000 Ml IV 75 mls/hr DIRECT JAMIN Administration Sodium Chloride 100 mls @ 999 mls/hr 03/12/19 07:16 Nacl 0.9% IV ALIVIA PRN Hypotension Lidocaine 1 each 03/11/19 14:00 03/18/19 09:42 Lidoderm 5% TD 1 each QDAY JAMIN Administration Oxycodone/Acetaminophen 2 tab 03/10/19 17:01 03/15/19 11:36 Percocet 5/325 PO 2 tab Q6H PRN Administration Pain, Moderate (4-6) Sodium Chloride 1 spray 03/13/19 09:00 03/13/19 11:28 Deep Sea NS 1 spray PRN PRN Administration Dry Nasal Passages
[2019-03-18] MEDS: TYLENOL PO PRN (14:11)
--- NOTE | 2019-03-18 14:31 | Progress Note ---
Assessment and Plan - Patient Problems (1) Anemia Current Visit: Yes Status: Acute Qualifiers: Anemia type: unspecified type Qualified Code(s): D64.9 - Anemia, unspecified Plan to address problem: Replacement transfusion. (2) ESRD (end stage renal disease) Current Visit: Yes Status: Acute Plan to address problem: Follow renal service. (3) DVT (deep venous thrombosis) Current Visit: No Status: Chronic Qualifiers: DVT location: lower extremity Chronicity: chronic Laterality: bilateral Plan to address problem: Anti coagulation., this was present on admission, (4) Vasoocclusive sickle cell crisis Current Visit: Yes Status: Acute Plan to address problem: Treat accordingly. (5) Anemia requiring transfusions Current Visit: No Status: Acute Plan to address problem: continue with replacement therapy. (6) SIRS due to non-infectious process without acute organ dysfunction Current Visit: Yes Status: Acute Plan to address problem: Follow ID REC. Subjective Date of service: 03/18/19 Principal diagnosis: /scd, pain crisis/ESRD. Interval history: Patient seen/examined, resting in bed, labs revuewed, case d/w patient. no new issues at this time. Patient seen/examined, resting in bed, labs ordered, No new issues at this time. Patient seen/examined, resting in bed, records reviewed,case d/w patient, and his mom at the bed side. patient , c/o pain not controlled at all, excruciating pain in the right sheen, i think it is due to severe infarction of the BM, due to crisis.I will get xray, and adjust his pain med, for few subsequent doses, to better control his pain.Will add boost plus to his nutrition. Patient seen/examined, resting in bed, records reviewed, case d/w patient. WBC up, despite IV ABX, will consult ID. continue to monitor cultures. Blood replacement transfusion ordered. Patient resting in bed, asleep, records reviewed, no mold changer night. orders were given, to proceed with transfusion of blood after pre med, and tem below 100. Patient seen/examined, resting in bed,, consult notes reviewed , case d/w patient.Will look into changing xeralto to Eliquis for renal reasons. Patient seen/examined, resting in bed,labs reviewed, improving.Case dw/patient.Continue to with pain control. Patient seen/examined, resting in bed, labs ordered for tomorrow. notes reviewed, case d/w patient. Patient seen/examined, resting in bed, no new issues at this time. Labs reviewed, hgb down again to 6+, he will get another 2units prbcs, making it a total of 4units this admission.I have spoken to his mom, about patient revert ing back to his depression . will add anti depressant. Objective - Constitutional Vitals: Vital Signs - 12hr 03/18/19 06:13 Temperature 98.9 F Pulse Rate 99 H Respiratory 20 Rate Blood Pressure 141/89 O2 Sat by Pulse 87 Oximetry General appearance: Present: mild distress, cachectic - EENT Eyes: PERRL, EOM intact ENT: hearing intact, clear oral mucosa Ears: bilateral: normal - Neck Neck: supple, normal ROM - Respiratory Respiratory effort: normal Respiratory: bilateral: CTA - Breasts Breasts: deferred - Cardiovascular Rhythm: regular Heart Sounds: Present: S1 & S2. Absent: gallop, rub Extremities: pulses intact, No edema, normal color, Full ROM - Gastrointestinal General gastrointestinal: Present: soft, non-tender, non-distended, normal bowel sounds Rectal Exam: deferred - Genitourinary Male genitourinary: deferred - Integumentary Integumentary: clear, warm, dry - Musculoskeletal Musculoskeletal: 1, strength equal bilaterally - Neurologic Neurologic: moves all extremities - Psychiatric Psychiatric: memory intact, appropriate mood/affect, intact judgment & insight - Labs CBC & Chem 7: 03/18/19 05:20 03/18/19 05:20 Labs: Abnormal lab results 03/18/19 03/18/19 Range/Units 05:20 05:20 WBC 17.4 H (4.5-11.0) K/mm3 RBC 2.22 L (3.65-5.03) M/mm3 Hgb 6.4 L (11.8-15.2) gm/dl Hct 19.1 L* (35.5-45.6) % RDW 18.7 H (13.2-15.2) % Plt Count 499 H (140-440) K/mm3 [place] % (Auto) 12.6 H (0.0-7.3) % Eos % (Auto) 6.7 H (0.0-4.3) % [place] # 2.2 H (0.0-0.8) K/mm3 Eos # 1.2 H (0.0-0.4) K/mm3 Baso # 0.3 H (0.0-0.1) K/mm3 Seg Neutrophils # 11.1 H (1.8-7.7) K/mm3 BUN 21 H (9-20) mg/dL Creatinine 2.2 H (0.8-1.5) mg/dL Glucose 126 H (75-100) mg/dL Calcium 8.0 L (8.4-10.2) mg/dL
[2019-03-18] MEDS: CATAPRES PO SCH (15:41)
[2019-03-18] MEDS ORDERED: NACL 0.9% 500 ML 500 ML ONE (21:37)
--- NOTE | 2019-03-18 22:28 | XRay Report ---
EXAMINATION: Abdominal radiograph, one view, 03/18/2019 CLINICAL INFORMATION: Generalized abdominal pain and distention COMPARISON: Abdominal radiograph, 06/08/2017 FINDINGS: The bowel gas pattern appears grossly nonobstructive. There is a moderate amount of retained stool th roughout the colon. An IVC filter is present. There has been previous fixation of the left hip. Limited imaging of the bilateral lung bases suggest faint bilateral airspace disease. IMPRESSION: 1. No radiographic evidence of bowel obstruction. 2. Possible faint bilateral airspace disease. Signer Name: Yasmeen Salazar MD Signed: 03/18/2019 10:24 PM Workstation Name: [id number]
[2019-03-19] MEDS ORDERED: APRESOLINE IV PRN (00:21)
[2019-03-19] MEDS: BENADRYL IV PRN ×4 (01:10→22:14)
[2019-03-19] MEDS: DILAUDID IV PRN ×7 (01:11→22:14)
[2019-03-19 03:38] LABS: Hematocrit 26.6 % (35.5-45.6); Hemoglobin 8.8 gm/dl (11.8-15.2)
[2019-03-19] MEDS: TYLENOL PO PRN (05:46)
[2019-03-19] MEDS: CATAPRES PO SCH ×2 (05:47→18:50)
--- NOTE | 2019-03-19 08:21 | Progress Note ---
Assessment and Plan - Patient Problems (1) ESRD (end stage renal disease) Current Visit: Yes Status: Chronic Plan to address problem: Continue with HD sessions every TTS as inpatient. Monitor for signs of renal recovery. (2) Hemolytic crisis Current Visit: Yes Status: Acute Plan to address problem: s/p 4 units PRBCs with improvement in H/H noted. 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 Subjective Date of service: 03/19/19 Principal diagnosis: /scd, pain crisis/ESRD. Interval history: No acute changes overnight. Pain is better controlled this am per patient. Had last HD session Tuesday, and tolerated session well. Objective - Vital Signs Vital signs: Vital Signs - 12hr 03/18/19 03/18/19 03/18/19 21:00 21:04 21:15 Temperature 99.1 F 98.9 F 98.8 F Pulse Rate 93 H 94 H 94 H Respiratory 18 19 18 Rate Blood Pressure 166/107 153/99 158/111 O2 Sat by Pulse 93 96 90 Oximetry 03/18/19 03/18/19 03/18/19 21:45 22:15 22:30 Temperature 98.0 F 98.1 F 98.2 F Pulse Rate 89 86 90 Respiratory 22 18 18 Rate Blood Pressure 160/103 164/111 160/103 O2 Sat by Pulse 98 100 100 Oximetry 03/18/19 03/18/19 03/19/19 22:58 23:00 00:46 Temperature 98.5 F Pulse Rate 88 88 Respiratory 20 Rate Blood Pressure 155/130 160/103 O2 Sat by Pulse 96 Oximetry 03/19/19 03/19/19 04:54 05:47 Temperature 100.5 F H Pulse Rate 96 H 98 H Respiratory 18 Rate Blood Pressure 116/78 120/80 O2 Sat by Pulse 90 Oximetry - General Appearance General appearance: appears stated age, frail EENT: ATNC, PERRL Neck: no JVD, no thyromegaly Respiratory: Present: Clear to Ascultation Cardiology: regular, normal heart rate, S1S2 Gastrointestinal: normal, normoactive bowel sounds Integumentary: warm and dry Neurologic: no focal deficit, alert and oriented x3 Psychiatric: mood/affect appropriate, cooperative - Lab 03/19/19 03:10 03/18/19 05:20 Most recent lab results Calcium 8.0 mg/dL (8.4-10.2) L 03/18/19 05:20 - Allied health notes Allied health notes reviewed: nursing Medications & Allergies - Medications Allergies/Adverse Reactions: Allergies hydroxyzine HCl [From Vistaril] Allergy (Verified 10/24/15 07:44) Hives hydroxyzine pamoate [From Vistaril] Allergy (Verified 10/24/15 07:44) Hives Home Medications: Home Medications Medication Instructions Recorded Confirmed Last Taken Type Folic Acid [Folvite] 1 mg PO QDAY 05/08/15 03/09/19 03/08/19 History diphenhydrAMINE [Benadryl CAP] 25 mg PO Q6HR PRN 05/08/15 03/09/19 03/08/19 History Oxycodone HCl/Acetaminophen 1 each PO Q6HR PRN 10/14/15 03/09/19 03/08/19 History [Percocet 10/325 mg] Rivaroxaban [Xarelto] 20 mg PO QDAY 06/07/17 03/09/19 03/08/19 History Active Medications: Generic Name Dose Route Start Last Admin Trade Name Freq PRN Reason Stop Dose Admin Acetaminophen 650 mg 03/11/19 17:15 03/19/19 05:46 Tylenol PO 650 mg Q6H PRN Administration Fever >101 Apixaban 2.5 mg 03/16/19 22:00 03/18/19 22:01 Eliquis PO 2.5 mg Q12HR JAMIN Administration Protocol Clonidine HCl 0.1 mg 03/18/19 16:00 03/19/19 05:47 Catapres PO 0.1 mg Q12H JAMIN Administration Diphenhydramine HCl 25 mg 03/09/19 11:07 03/19/19 01:10 Benadryl IV 25 mg Q6H PRN Administration Itching Docusate Sodium 100 mg 03/13/19 10:00 03/18/19 22:02 Colace PO Not Given BID JAMIN Hydralazine HCl 20 mg 03/19/19 00:21 03/19/19 00:46 Apresoline IV 20 mg Q4H PRN Administration Hypertension Hydromorphone HCl 3 mg 03/12/19 22:13 03/19/19 04:34 Dilaudid IV 3 mg Q3H PRN Administration Pain , Severe (7-10) Sodium Chloride 100 mls @ 999 mls/hr 03/12/19 07:16 Nacl 0.9% IV ALIVIA PRN Hypotension Lidocaine 1 each 03/11/19 14:00 03/18/19 09:42 Lidoderm 5% TD 1 each QDAY JAMIN Administration Oxycodone/Acetaminophen 2 tab 03/10/19 17:01 03/15/19 11:36 Percocet 5/325 PO 2 tab Q6H PRN Administration Pain, Moderate (4-6) Paroxetine HCl 20 mg 03/19/19 10:00 Paxil PO QDAY JAMIN Sodium Chloride 1 spray 03/13/19 09:00 03/13/19 11:28 Deep Sea NS 1 spray PRN PRN Administration Dry Nasal Passages
--- NOTE | 2019-03-19 10:08 | Progress Note ---
Assessment and Plan - Patient Problems (1) Anemia Current Visit: Yes Status: Acute Qualifiers: Anemia type: unspecified type Qualified Code(s): D64.9 - Anemia, unspecified Plan to address problem: Replacement transfusion. (2) ESRD (end stage renal disease) Current Visit: Yes Status: Chronic Plan to address problem: Follow renal service. 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 (5) Anemia requiring transfusions Current Visit: No Status: Acute Plan to address problem: continue with replacement therapy. (6) SIRS due to non-infectious process without acute organ dysfunction Current Visit: Yes Status: Acute Plan to address problem: Follow ID REC. Subjective Date of service: 03/19/19 Principal diagnosis: /scd, pain crisis/ESRD. Interval history: Patient seen/examined, resting in bed, labs revuewed, case d/w patient. no new issues at this time. Patient seen/examined, resting in bed, labs ordered, No new issues at this time. Patient seen/examined, resting in bed, records reviewed,case d/w patient, and his mom at the bed side. patient , c/o pain not controlled at all, excruciating pain in the right sheen, i think it is due to severe infarction of the BM, due to crisis.I will get xray, and adjust his pain med, for few subsequent doses, to better control his pain.Will add boost plus to his nutrition. Patient seen/examined, resting in bed, records reviewed, case d/w patient. WBC up, despite IV ABX, will consult ID. continue to monitor cultures. Blood replacement transfusion ordered. Patient resting in bed, asleep, records reviewed, no drying rack changer night. orders were given, to proceed with transfusion of blood after pre med, and tem below 100. Patient seen/examined, resting in bed,, consult notes reviewed , case d/w mann ent.Will look into changing xeralto to Eliquis for renal reasons. Patient seen/examined, resting in bed,labs reviewed, improving.Case dw/patient.Continue to with pain control. Patient seen/examined, resting in bed, labs ordered for tomorrow. notes reviewed, case d/w patient. Patient seen/examined, resting in bed, no new issues at this time. Labs reviewed, hgb down again to 6+, he will get another 2units prbcs, making it a total of 4units this admission.I have spoken to his mom, about patient re verting back to his depression . will add anti depressant. Patient seen/examined, resting in bed, labs reviewed, case discussed, will check iron level. Objective - Constitutional Vitals: Vital Signs - 12hr 03/18/19 03/18/19 03/18/19 22:15 22:30 22:58 Temperature 98.1 F 98.2 F Pulse Rate 86 90 88 Respiratory 18 18 20 Rate Blood Pressure 164/111 160/103 155/130 O2 Sat by Pulse 100 100 96 Oximetry 03/18/19 03/19/19 03/19/19 23:00 00:46 04:54 Temperature 98.5 F 100.5 F H Pulse Rate 88 96 H Respiratory 18 Rate Blood Pressure 160/103 116/78 O2 Sat by Pulse 90 Oximetry 03/19/19 05:47 Temperature Pulse Rate 98 H Respiratory Rate Blood Pressure 120/80 O2 Sat by Pulse Oximetry General appearance: Present: mild distress, cachectic - EENT Eyes: PERRL, EOM intact ENT: hearing intact, clear oral mucosa Ears: bilateral: normal - Neck Neck: supple, normal ROM - Respiratory Respiratory effort: normal Respiratory: bilateral: CTA - Breasts Breasts: deferred - Cardiovascular Rhythm: regular Heart Sounds: Present: S1 & S2. Absent: gallop, rub Extremities: pulses intact, No edema, normal color, Full ROM - Gastrointestinal General gastrointestinal: Present: soft, non-tender, non-distended, normal bowel sounds Rectal Exam: deferred - Genitourinary Male genitourinary: deferred - Integumentary Integumentary: clear, warm, dry - Musculoskeletal Musculoskeletal: 1, strength equal bilaterally - Neurologic Neurologic: moves all extremities - Psychiatric Psychiatric: memory intact, appropriate mood/affect, intact judgment & insight - Labs CBC & Chem 7: 03/19/19 03:10 03/18/19 05:20 Labs: Abnormal lab results 03/19/19 Range/Units 03:10 Hgb 8.8 L (11.8-15.2) gm/dl Hct 26.6 L D (35.5-45.6) %
[2019-03-19] MEDS: LIDODERM 5% TD SCH (10:53)
[2019-03-19] MEDS: COLACE PO SCH ×2 (10:53→22:15)
[2019-03-19] MEDS: PAXIL PO SCH (10:53)
[2019-03-19 11:18] LABS: Iron 52 ug/dL (49-181); Total Iron Binding Capacity 155 mcg/dL (250-450)
[2019-03-19] MEDS: ELIQUIS PO SCH ×2 (12:41→22:15)
--- NOTE | 2019-03-19 12:49 | Progress Note ---
Assessment and Plan Cultures: 03/09 BCX NGTD 03/09 UCx Negative 03/11 BCx NGTD 03/11 UCx Negative A/P: 43 yo M PMHx sickle cell anemia, ESRD on HD admitted with vaso-occlusive crisis and bony pain. 1. SIRS - present on admission with leukocytosis and fever. I believe this was related to his sickle cell/vasoocclusive crisis. All cultures are negative and he lacks any symptoms or complaints outside of the pain. I would continue off antibiotics and monitor. 2. ESRD on HD 3. Sickle Cell anemia 4. Vaso-occlusive crisis Recs: - continue off antibiotics - If he develops persistent fevers or new symptoms of infection please call me. Thank you for the consult, we will sign off. Please call if he develops persistent fevers or new symptoms of infection. Lauren Miles MD [facility] ([facility]) M: [phone] O: [phone] F: [phone] Subjective Date of service: 03/19/19 Principal diagnosis: /scd, pain crisis/ESRD. Interval history: Pain improved somewhat. Otherwise, no new symptoms. Objective - Exam Narrative Exam: Constitutional: Alert, cooperative. No acute distress Head, Ears, Nose: Normocephalic, atraumatic. External ears, nose normal Eyes: Conjunctivae/corneas clear. No icterus. No ptosis. Neck: Supple, no meningeal signs Oral: dentition fair, no thrush Cardiovascular: S1, S2 normal. Respiratory: Good air entry, clear to auscultation bilaterally GI: Soft, non-tender; bowel sounds normal. No peritoneal signs. Musculoskeletal: generalized pain and sensitivity to movement and touch Skin: No rash or abscess Hem/Lymphatic: No palpable cervical or supraclavicular nodes. No lymphangitis Psych: Mood ok. Affect normal Neurological: Awake, alert, oriented. No gross abnormality - Constitutional Vitals: Vital Signs Temp Pulse Resp BP Pulse Ox 98.1 F 72 20 133/91 93 03/19/19 11:19 03/19/19 11:19 03/19/19 11:19 03/19/19 11:03/19/19 11:19 Temperature -Last 24 Hours Temperature 98.1 F Temperature 100.5 F Temperature 98.5 F Temperature 98.2 F Temperature 98.1 F Temperature 98.0 F Temperature 98.8 F Temperature 98.9 F Temperature 98.9 F Temperature 99.1 F Temperature 98.3 F Temperature 98.5 F Temperature 99.3 F Temperature 99.0 F Temperature 99 F Temperature 99.5 F - Labs CBC & Chem 7: 03/19/19 03:10 03/18/19 05:20 Labs: Abnormal lab results 03/19/19 03/19/19 Range/Units 03:10 Unknown Hgb 8.8 L (11.8-15.2) gm/dl Hct 26.6 L D (35.5-45.6) % TIBC 155 L (250-450) mcg/dL
[2019-03-20] MEDS: Desferal 3,000 MG in NACL 0.9% 250ML 250 ML IV SCH ×2 (00:20→23:16)
[2019-03-20] MEDS: DILAUDID IV PRN ×6 (01:23→21:02)
[2019-03-20] MEDS: BENADRYL IV PRN ×3 (04:36→21:04)
[2019-03-20] MEDS: CATAPRES PO SCH ×2 (05:47→16:24)
--- NOTE | 2019-03-20 08:55 | Progress Note ---
Assessment and Plan - Patient Problems (1) ESRD (end stage renal disease) Current Visit: Yes Status: Chronic Plan to address problem: Continue with HD sessions every TTS as inpatient. Monitor for signs of renal recovery. (2) Hemolytic crisis Current Visit: Yes Status: Acute Plan to address problem: s/p 4 units PRBCs with improvement in H/H noted. 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 Subjective Date of service: 03/20/19 Principal diagnosis: /scd, pain crisis/ESRD. Interval history: No acute issues overnight. Plan for HD today. Pending labs this am. Objective - Vital Signs Vital signs: Vital Signs - 12hr 03/19/19 03/20/19 23:44 05:04 Temperature 99.2 F 99.0 F Pulse Rate 60 80 Respiratory 16 16 Rate Blood Pressure 121/78 135/91 O2 Sat by Pulse 95 93 Oximetry - General Appearance General appearance: appears stated age, chronically ill, frail EENT: ATNC, PERRL Neck: no JVD, no thyromegaly Respiratory: Present: Clear to Ascultation, Normal Exam Cardiology: regular, normal heart rate, S1S2 Gastrointestinal: normal, normoactive bowel sounds Integumentary: warm and dry Neurologic: alert and oriented x3 Musculoskeletal: deferred Psychiatric: mood/affect appropriate, cooperative - Lab 03/19/19 03:10 03/18/19 05:20 Most recent lab results Calcium 8.0 mg/dL (8.4-10.2) L 03/18/19 05:20 - Allied health notes Allied health notes reviewed: nursing Medications & Allergies - Medications Allergies/Adverse Reactions: Allergies hydroxyzine HCl [From Vistaril] Allergy (Verified 10/24/15 07:44) Hives hydroxyzine pamoate [From Vistaril] Allergy (Verified 10/24/15 07:44) Hives Home Medications: Home Medications Medication Instructions Recorded Confirmed Last Taken Type Folic Acid [Folvite] 1 mg PO QDAY 05/08/15 03/09/19 03/08/19 History diphenhydrAMINE [Benadryl CAP] 25 mg PO Q6HR PRN 05/08/15 03/09/19 03/08/19 History Oxycodone HCl/Acetaminophen 1 each PO Q6HR PRN 10/14/15 03/09/19 03/08/19 History [Percocet 10/325 mg] Rivaroxaban [Xarelto] 20 mg PO QDAY 06/07/17 03/09/19 03/08/19 History Active Medications: Generic Name Dose Route Start Last Admin Trade Name Freq PRN Reason Stop Dose Admin Acetaminophen 650 mg 03/11/19 17:15 03/19/19 05:46 Tylenol PO 650 mg Q6H PRN Administration Fever >101 Apixaban 2.5 mg 03/16/19 22:00 03/19/19 22:15 Eliquis PO 2.5 mg Q12HR JAMIN Administration Protocol Clonidine HCl 0.1 mg 03/18/19 16:00 03/20/19 05:47 Catapres PO Not Given Q12H JAMIN Diphenhydramine HCl 25 mg 03/09/19 11:07 03/20/19 04:36 Benadryl IV 25 mg Q6H PRN Administration Itching Docusate Sodium 100 mg 03/13/19 10:00 03/19/19 22:15 Colace PO Not Given BID JAMIN Hydralazine HCl 20 mg 03/19/19 00:21 03/19/19 00:46 Apresoline IV 20 mg Q4H PRN Administration Hypertension Hydromorphone HCl 3 mg 03/12/19 22:13 03/20/19 04:36 Dilaudid IV 3 mg Q3H PRN Administration Pain , Severe (7-10) Sodium Chloride 100 mls @ 999 mls/hr 03/12/19 07:16 Nacl 0.9% IV ALIVIA PRN Hypotension Deferoxamine Mesylate 3,000 mg 250 mls @ 32 mls/hr 03/19/19 21:00 03/20/19 00:20 / Sodium Chloride IV 03/21/19 04:49 32 mls/hr Q24H JAMIN Administration Lidocaine 1 each 03/11/19 14:00 03/19/19 10:53 Lidoderm 5% TD 1 each QDAY JAMIN Administration Oxycodone/Acetaminophen 2 tab 03/10/19 17:01 03/15/19 11:36 Percocet 5/325 PO 2 tab Q6H PRN Administration Pain, Moderate (4-6) Paroxetine HCl 20 mg 03/19/19 10:00 03/19/19 10:53 Paxil PO 20 mg QDAY JAMIN Administration Sodium Chloride 1 spray 03/13/19 09:00 03/13/19 11:28 Deep Sea NS 1 spray PRN PRN Administration Dry Nasal Passages
[2019-03-20] MEDS: PAXIL PO SCH (09:01)
[2019-03-20] MEDS: ELIQUIS PO SCH ×2 (09:01→21:03)
[2019-03-20] MEDS: LIDODERM 5% TD SCH (09:02)
[2019-03-20] MEDS: COLACE PO SCH ×2 (09:03→21:04)
--- NOTE | 2019-03-20 10:20 | Progress Note ---
Assessment and Plan - Patient Problems (1) Anemia Current Visit: Yes Status: Acute Qualifiers: Anemia type: unspecified type Qualified Code(s): D64.9 - Anemia, unspecified Plan to address problem: Replacement transfusion. (2) ESRD (end stage renal disease) Current Visit: Yes Status: Chronic Plan to address problem: Follow renal service. 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 (5) Anemia requiring transfusions Current Visit: No Status: Acute Plan to address problem: continue with replacement therapy. (6) SIRS due to non-infectious process without acute organ dysfunction Current Visit: Yes Status: Acute Plan to address problem: Follow ID REC. (7) Iron overload due to repeated red blood cell transfusions Current Visit: Yes Status: Acute Plan to address problem: Continue on Iron chelator. Subjective Date of service: 03/20/19 Principal diagnosis: /scd, pain crisis/ESRD. Interval history: Patient seen/examined, resting in bed, labs revuewed, case d/w patient. no new issues at this time. Patient seen/examined, resting in bed, labs ordered, No new issues at this time. Patient seen/examined, resting in bed, records reviewed,case d/w patient, and his mom at the bed side. patient , c/o pain not controlled at all, excruciating pain in the right sheen, i think it is due to severe infarction of the BM, due to crisis.I will get xray, and adjust his pain med, for few subsequent doses, to better control his pain.Will add boost plus to his nutrition. Patient seen/examined, resting in bed, records reviewed, case d/w patient. WBC up, despite IV ABX, will consult ID. continue to monitor cultures. Blood replacement transfusion ordered. Patient resting in bed, asleep, records reviewed, no oil changer night. orders were given, to proceed with transfusion of blood after pre med, and tem below 100. Patient seen/examined, resting in bed,, consult notes reviewed , case d/w patient.Will look into changing xeralto to Eliquis for renal reasons. Patient seen/examined, resting in bed,labs reviewed, improving.Case dw/patient.Continue to with pain control. Patient seen/examined, resting in bed, labs ordered for tomorrow. notes reviewed, case d/w patient. Patient seen/examined, resting in bed, no new issues at this time. Labs reviewed, hgb down again to 6+, he will get another 2units prbcs, making it a total of 4units this admission.I have spoken to his mom, about patient reverting back to his depression . will add anti depressant. Patient seen/examined, resting in bed, labs reviewed, case discussed, will check iron level. Patient seen/examined, at the HD center. Resting ok in bed, Had the #1 of #2 DESFeral yesterday. He will be d/c after the next dose finishes tomorrow. Objective - Constitutional Vitals: Vital Signs - 12hr 03/19/19 03/20/19 03/20/19 23:44 05:04 09:50 Temperature 99.2 F 99.0 F 99.0 F Pulse Rate 60 80 70 Respiratory 16 16 18 Rate Blood Pressure 121/78 135/91 141/83 O2 Sat by Pulse 95 93 Oximetry General appearance: Present: mild distress, cachectic - EENT Eyes: PERRL, EOM intact ENT: hearing intact, clear oral mucosa Ears: bilateral: normal - Neck Neck: supple, normal ROM - Respiratory Respiratory effort: normal Respiratory: bilateral: CTA - Breasts Breasts: deferred - Cardiovascular Rhythm: regular Heart Sounds: Present: S1 & S2. Absent: gallop, rub Extremities: pulses intact, No edema, normal color, Full ROM - Gastrointestinal General gastrointestinal: Present: soft, non-tender, non-distended, normal bowel sounds Rectal Exam: deferred - Genitourinary Male genitourinary: deferred - Integumentary Integumentary: clear, warm, dry - Musculoskeletal Musculoskeletal: 1, strength equal bilaterally - Neurologic Neurologic: moves all extremities - Psychiatric Psychiatric: memory intact, appropriate mood/affect, intact judgment & insight - Labs CBC & Chem 7: 03/19/19 03:10 03/18/19 05:20 Labs: Abnormal lab results 03/19/19 03/19/19 Range/Units Unknown Unknown TIBC 155 L (250-450) mcg/dL Ferritin 7537.0 H (13.0-400.0) ng/mL
[2019-03-20 11:49] LABS: Calcium 8.8 mg/dL (8.4-10.2)
[2019-03-21] MEDS: DILAUDID IV PRN ×8 (00:06→23:29)
[2019-03-21] MEDS: BENADRYL IV PRN ×4 (03:47→23:29)
[2019-03-21] MEDS: CATAPRES PO SCH ×2 (07:01→17:22)
--- NOTE | 2019-03-21 09:55 | Progress Note ---
Assessment and Plan - Patient Problems (1) ESRD (end stage renal disease) Current Visit: Yes Status: Chronic Plan to address problem: Continue with HD sessions every TTS as inpatient. Monitor for signs of renal recovery. (2) Hemolytic crisis Current Visit: Yes Status: Acute Plan to address problem: s/p 4 units PRBCs with improvement in H/H noted. 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 Subjective Date of service: 03/21/19 Principal diagnosis: /scd, pain crisis/ESRD. Interval history: No acute complaints this am. Tolerated HD well without any acute abnormalities. Objective - Vital Signs Vital signs: Vital Signs - 12hr 03/20/19 03/21/19 03/21/19 23:47 06:27 07:01 Temperature 97.8 F 99.0 F Pulse Rate 87 91 H 112 H Respiratory 16 20 Rate Blood Pressure 112/76 140/103 139/82 O2 Sat by Pulse 95 92 Oximetry - General Appearance General appearance: appears stated age, chronically ill, frail EENT: ATNC, PERRL Neck: no JVD, no thyromegaly Respiratory: Present: Clear to Ascultation, Normal Exam Cardiology: regular, S1S2 Gastrointestinal: normal, normoactive bowel sounds Integumentary: no rash, warm and dry Neurologic: no focal deficit, no asterixis, alert and oriented x3 Psychiatric: mood/affect appropriate, cooperative - Lab 03/19/19 03:10 03/20/19 09:07 Most recent lab results Calcium 8.8 mg/dL (8.4-10.2) 03/20/19 09:07 - Allied health notes Allied health notes reviewed: nursing Medications & Allergies - Medications Allergies/Adverse Reactions: Allergies hydroxyzine HCl [From Vistaril] Allergy (Verified 10/24/15 07:44) Hives hydroxyzine pamoate [From Vistaril] Allergy (Verified 10/24/15 07:44) Hives Home Medications: Home Medications Medication Instructions Recorded Confirmed Last Taken Type Folic Acid [Folvite] 1 mg PO QDAY 05/08/15 03/09/19 03/08/19 History diphenhydrAMINE [Benadryl CAP] 25 mg PO Q6HR PRN 05/08/15 03/09/1919 History Oxycodone HCl/Acetaminophen 1 each PO Q6HR PRN 10/14/15 03/09/19 03/08/19 History [Percocet 10/325 mg] Rivaroxaban [Xarelto] 20 mg PO QDAY 06/07/17 03/09/19 03/08/19 History Active Medications: Generic Name Dose Route Start Last Admin Trade Name Freq PRN Reason Stop Dose Admin Acetaminophen 650 mg 03/11/19 17:15 03/19/19 05:46 Tylenol PO 650 mg Q6H PRN Administration Fever >101 Apixaban 2.5 mg 03/16/19 22:00 03/20/19 21:03 Eliquis PO 2.5 mg Q12HR JAMIN Administration Protocol Clonidine HCl 0.1 mg 03/18/19 16:00 03/21/19 07:01 Catapres PO 0.1 mg Q12H JAMIN Administration Diphenhydramine HCl 25 mg 03/09/19 11:07 03/21/19 03:47 Benadryl IV 25 mg Q6H PRN Administration Itching Docusate Sodium 100 mg 03/13/19 10:00 03/20/19 21:04 Colace PO 100 mg BID JAMIN Administration Hydralazine HCl 20 mg 03/19/19 00:21 03/19/19 00:46 Apresoline IV 20 mg Q4H PRN Administration Hypertension Hydromorphone HCl 3 mg 03/12/19 22:13 03/21/19 06:57 Dilaudid IV 3 mg Q3H PRN Administration Pain , Severe (7-10) Sodium Chloride 100 mls @ 999 mls/hr 03/12/19 07:16 Nacl 0.9% IV ALIVIA PRN Hypotension Lidocaine 1 each 03/11/19 14:00 03/20/19 09:02 Lidoderm 5% TD 1 each QDAY JAMIN Administration Oxycodone/Acetaminophen 2 tab 03/10/19 17:01 03/15/19 11:36 Percocet 5/325 PO 2 tab Q6H PRN Administration Pain, Moderate (4-6) Paroxetine HCl 20 mg 03/19/19 10:00 03/20/19 09:01 Paxil PO 20 mg QDAY JAMIN Administration Sodium Chloride 1 spray 03/13/19 09:00 03/13/19 11:28 Deep Sea NS 1 spray PRN PRN Administration Dry Nasal Passages
[2019-03-21] MEDS: LIDODERM 5% TD SCH (10:07)
[2019-03-21] MEDS: COLACE PO SCH ×2 (10:08→23:36)
[2019-03-21] MEDS: PAXIL PO SCH (10:08)
[2019-03-21] MEDS: ELIQUIS PO SCH ×2 (10:09→23:28)
--- NOTE | 2019-03-21 19:08 | Progress Note ---
Assessment and Plan - Patient Problems (1) Anemia Current Visit: Yes Status: Acute Qualifiers: Anemia type: unspecified type Qualified Code(s): D64.9 - Anemia, unspecified Plan to address problem: Replacement transfusion. (2) ESRD (end stage renal disease) Current Visit: Yes Status: Chronic Plan to address problem: Follow renal service. 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 (5) Anemia requiring transfusions Current Visit: No Status: Acute Plan to address problem: continue with replacement therapy. (6) SIRS due to non-infectious process without acute organ dysfunction Current Visit: Yes Status: Acute Plan to address problem: Follow ID REC. resolved. (7) Iron overload due to repeated red blood cell transfusions Current Visit: Yes Status: Acute Plan to address problem: Continue on Iron chelator. Give one more dose of Desferal. Subjective Date of service: 03/21/19 Principal diagnosis: /scd, pain crisis/ESRD. Interval history: Patient seen/examined, resting in bed, labs revuewed, case d/w patient. no new issues at this time. Patient seen/examined, resting in bed, labs ordered, No new issues at this time. Patient seen/examined, resting in bed, records reviewed,case d/w patient, and his mom at the bed side. patient , c/o pain not controlled at all, excruciating pain in the right sheen, i think it is due to severe infarction of the BM, due to crisis.I will get xray, and adjust his pain med, for few subsequent doses, to better control his pain.Will add boost plus to his nutrition. Patient seen/examined, resting in bed, records reviewed, case d/w patient. WBC up, despite IV ABX, will consult ID. continue to monitor cultures. Blood replacement transfusion ordered. 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 orders were given, to proceed with transfusion of blood after pre med, and tem below 100. Patient seen/examined, resting in bed,, consult notes reviewed , case d/w patient.Will look into changing xeralto to Eliquis for renal reasons. Patient seen/examined, resting in bed,labs reviewed, improving.Case dw/patient.Continue to with pain control. Patient seen/examined, resting in bed, labs ordered for tomorrow. notes reviewed, case d/w patient. Patient seen/examined, resting in bed, no new issues at this time. Labs reviewed, hgb down again to 6+, he will get another 2units prbcs, making it a total of 4units this admission.I have spoken to his mom, about patient reverting back to his depression . will add anti depressant. Patient seen/examined, resting in bed, labs reviewed, case discussed, will check iron level. Patient seen/examined, at the HD center. Resting ok in bed, Had the #1 of #2 DESFeral yesterday. He will be d/c after the next dose finishes tomorrow. Patient seen/examined, resting in bed, labs reviewed, case d/w patient, c/o I am still hurting a bit. Will do one more DeSsferal tx, and d/c home after. D/c orthers already put in. Objective - Constitutional Vitals: Vital Signs - 12hr 03/21/19 03/21/19 03/21/19 10:00 12:00 17:16 Temperature 97.6 F 97.5 F L Pulse Rate 77 78 Respiratory 20 18 18 Rate Blood Pressure 132/88 134/87 O2 Sat by Pulse 95 90 92 Oximetry 03/21/19 17:22 Temperature Pulse Rate 77 Respiratory Rate Blood Pressure 132/88 O2 Sat by Pulse Oximetry General appearance: Present: mild distress, well-nourished - EENT Eyes: PERRL, EOM intact ENT: hearing intact, clear oral mucosa Ears: bilateral: normal - Neck Neck: supple, normal ROM - Respiratory Respiratory effort: normal Respiratory: bilateral: CTA - Breasts Breasts: deferred - Cardiovascular Rhythm: regular Heart Sounds: Present: S1 & S2. Absent: gallop, rub Extremities: pulses intact, No edema, normal color, Full ROM - Gastrointestinal General gastrointestinal: Present: soft, non-tender, non-distended, normal bowel sounds Rectal Exam: deferred - Genitourinary Male genitourinary: deferred - Integumentary Integumentary: clear, warm, dry - Musculoskeletal Musculoskeletal: 1, strength equal bilaterally - Neurologic Neurologic: moves all extremities - Psychiatric Psychiatric: memory intact, appropriate mood/affect, intact judgment & insight - Labs CBC & Chem 7: 03/19/19 03:10 03/20/19 09:07
--- NOTE | 2019-03-21 19:16 | Discharge Summary ---
Providers - Providers Date of Admission: 03/09/19 05:24 Date of discharge: 03/22/19 (after Desferal finishes tomorrow.) Attending physician: ACACIA SANDRA 03/09/19 05:25 Consult to Physician [CONS] Urgent Comment: Consulting Provider: EDGARDO YANCEY Physician Instructions: Reason For Exam: missed dialysis 03/13/19 20:10 Consult to Physician [CONS] Routine Comment: Consulting Provider: GAYLA GARZA Physician Instructions: Reason For Exam: fevers, elevated WBC.despite IV ABX. Primary care physician: ACACIA SANDRA Hospitalization Reason for admission: SCD/Pain crisis. Condition: Stable Hospital course: Patient presented to the ED with CC of diffuse joint pain, and admitted for sxs control, and management.He was treated with hydration, pain control, HD, and received total of six units of PRBCs.Labs revealed severe Chronic iron over load, due to old, and recent blood transfusion.. He will be d/c home, after one more dose of Desferal tomorrow. Disposition: DC- TO HOME OR SELFCARE - Discharge Diagnoses (1) Anemia Status: Chronic Qualifiers: Qualified Code(s): D64.9 - Anemia, unspecified (2) ESRD (end stage renal disease) Status: Chronic (3) DVT (deep venous thrombosis) Status: Chronic Qualifiers: DVT location: lower extremity Chronicity: chronic Laterality: bilateral (4) Vasoocclusive sickle cell crisis Status: Resolved (5) Anemia requiring transfusions Status: Chronic (6) SIRS due to non-infectious process without acute organ dysfunction Status: Resolved (7) Iron overload due to repeated red blood cell transfusions Status: Chronic Core Measure Documentation - Palliative Care Palliative Care/ Comfort Measures: Not Applicable - Core Measures Any of the following diagnoses?: history only Exam - Constitutional Vitals: Temp Pulse Resp BP Pulse Ox 97.5 F L 77 18 132/88 92 03/21/19 17:16 03/21/19 17:22 03/21/19 17:16 03/21/19 17:22 03/21/19 17:16 General appearance: Present: no acute distress, well-nourished - EENT Eyes: Present: PERRL ENT: hearing intact, clear oral mucosa - Neck Neck: Present: supple, normal ROM - Respiratory Respiratory effort: normal Respiratory: bilateral: CTA - Cardiovascular Heart Sounds: Present: S1 & S2. Absent: rub, click - Extremities Extremities: pulses symmetrical, No edema Peripheral Pulses: within normal limits - Abdominal General gastrointestinal: Present: soft, non-tender, non-distended, normal bowel sounds Male genitourinary: Present: deferred - Rectal Rectal Exam: deferred - Integumentary Integumentary: Present: clear, warm, dry - Musculoskeletal Musculoskeletal: gait normal, strength equal bilaterally - Psychiatric Psychiatric: appropriate mood/affect, intact judgment & insight - Neurologic Neurologic: CNII-XII intact, moves all extremities Plan Weight Bearing Status: Non-Weight Bearing Diet: renal Follow up with: SCOTTIE STRATTON MD [Referring] - 7 Days ACACIA SANDRA DO [Primary Care Provider] - 7 Days
[2019-03-21] MEDS ORDERED: Desferal 3,000 MG in NACL 0.9% 250ML 250 ML IV ONE (20:19)
[2019-03-22] MEDS: DILAUDID IV PRN ×4 (03:34→14:05)
[2019-03-22] MEDS: CATAPRES PO SCH (03:44)
[2019-03-22] MEDS: BENADRYL IV PRN ×2 (06:37→14:12)
[2019-03-22] MEDS: COLACE PO SCH (10:34)
[2019-03-22] MEDS: ELIQUIS PO SCH ×2 (10:34→14:05)
[2019-03-22] MEDS: PAXIL PO SCH (10:35)
[2019-03-22] MEDS ORDERED: NACL 0.9 (PRIMING MACHINE ONLY DIALYSIS) MC ONE (12:30)
[2019-03-22 13:51] VITALS: BP 154/88
[2019-03-22] MEDS: LIDODERM 5% TD SCH (14:04)
[2019-03-22] MEDS ORDERED: FLUSH HEPARIN IV NR (14:42)
[2019-03-22] MEDS ORDERED: TRIPLE ANTIBIOTIC TP NR (14:43)
--- NOTE | 2019-03-22 15:19 | Progress Note ---
Assessment and Plan - Patient Problems (1) ESRD (end stage renal disease) Current Visit: Yes Status: Chronic Plan to address problem: Continue with HD sessions every TTS as inpatient. Monitor for signs of renal recovery. From a renal standpoint patient is stable for DC (2) Hemolytic crisis Current Visit: Yes Status: Acute Plan to address problem: s/p 4 units PRBCs with improvement in H/H noted. (3) Vasoocclusive sickle cell crisis Current Visit: Yes Status: Resolved Plan to address problem: Pain is better controlled now with analgesic/hydration. Subjective Date of service: 03/22/19 Principal diagnosis: /scd, pain crisis/ESRD. Interval history: No acute complaints this afternoon. Pending DC today. Tolerated HD well without any issues. Objective - Vital Signs Vital signs: Vital Signs - 12hr 03/22/19 03/22/19 03/22/19 03:34 03:44 05:19 Temperature 98.4 F Pulse Rate 82 76 Respiratory 16 16 Rate Blood Pressure 138/87 140/71 O2 Sat by Pulse 92 Oximetry O2 Sat by Pulse Oximetry [ Anterior Bilateral Throughout] O2 Sat by Pulse Oximetry [ Posterior Bilateral Throughout] 03/22/19 03/22/19 03/22/19 06:37 10:10 10:15 Temperature 99.1 F Pulse Rate 79 75 Respiratory 200 H 16 Rate Blood Pressure 140/89 132/75 O2 Sat by Pulse Oximetry O2 Sat by Pulse 96 Oximetry [ Anterior Bilateral Throughout] O2 Sat by Pulse 96 Oximetry [ Posterior Bilateral Throughout] 03/22/19 03/22/19 03/22/19 10:17 10:30 10:45 Temperature Pulse Rate 76 82 Respiratory 16 Rate Blood Pressure 143/89 114/56 O2 Sat by Pulse Oximetry O2 Sat by Pulse Oximetry [ Anterior Bilateral Throughout] O2 Sat by Pulse Oximetry [ Posterior Bilateral Throughout] 03/22/19 03/22/19 03/22/19 11:00 11:15 11:30 Temperature Pulse Rate 78 78 76 Respiratory Rate Blood Pressure 127/93 113/71 106/63 O2 Sat by Pulse Oximetry O2 Sat by Pulse Oximetry [ Anterior Bilateral Throughout] O2 Sat by Pulse Oximetry [ Posterior Bilateral Throughout] 03/22/19 03/22/19 03/22/19 11:53 12:00 12:15 Temperature Pulse Rate 69 69 70 Respiratory Rate Blood Pressure 144/85 146/88 142/87 O2 Sat by Pulse Oximetry O2 Sat by Pulse Oximetry [ Anterior Bilateral Throughout] O2 Sat by Pulse Oximetry [ Posterior Bilateral Throughout] 03/22/19 03/22/19 03/22/19 12:30 12:45 13:00 Temperature Pulse Rate 70 77 72 Respiratory Rate Blood Pressure 145/85 126/64 154/89 O2 Sat by Pulse Oximetry O2 Sat by Pulse Oximetry [ Anterior Bilateral Throughout] O2 Sat by Pulse Oximetry [ Posterior Bilateral Throughout] 03/22/19 03/22/19 13:15 13:34 Temperature 99.1 F Pulse Rate 84 90 Respiratory 18 Rate Blood Pressure 153/80 154/88 O2 Sat by Pulse Oximetry O2 Sat by Pulse Oximetry [ Anterior Bilateral Throughout] O2 Sat by Pulse Oximetry [ Posterior Bilateral Throughout] - General Appearance General appearance: appears stated age, chronically ill, frail EENT: ATNC, PERRL Neck: no JVD, no thyromegaly Respiratory: Present: Clear to Ascultation, Normal Exam Cardiology: regular, S1S2 Gastrointestinal: normal, normoactive bowel sounds Integumentary: no rash, warm and dry Neurologic: no focal deficit, alert and oriented x3 Psychiatric: cooperative - Lab 03/19/19 03:10 03/20/19 09:07 Most recent lab results Calcium 8.8 mg/dL (8.4-10.2) 03/20/19 09:07 - Allied health notes Allied health notes reviewed: nursing Medications & Allergies - Medications Allergies/Adverse Reactions: Allergies hydroxyzine HCl [From Vistaril] Allergy (Verified 10/24/15 07:44) Hives hydroxyzine pamoate [From Vistaril] Allergy (Verified 10/24/15 07:44) Hives Home Medications: Home Medications Medication Instructions Recorded Confirmed Last Taken Type Folic Acid [Folvite] 1 mg PO QDAY 05/08/15 03/09/19 03/08/19 History diphenhydrAMINE [Benadryl CAP] 25 mg PO Q6HR PRN 05/08/15 03/09/19 03/08/19 History Oxycodone HCl/Acetaminophen 1 each PO Q6HR PRN 10/14/15 03/09/19 03/08/19 History [Percocet 10/325 mg] Rivaroxaban [Xarelto] 20 mg PO QDAY 06/07/17 03/09/19 03/08/19 History Active Medications: Generic Name Dose Route Start Last Admin Trade Name Freq PRN Reason Stop Dose Admin Acetaminophen 650 mg 03/11/19 17:15 03/19/19 05:46 Tylenol PO 650 mg Q6H PRN Administration Fever >101 Apixaban 2.5 mg 03/16/19 22:00 03/22/19 14:05 Eliquis PO 2.5 mg Q12HR JAMIN Administration Protocol Clonidine HCl 0.1 mg 03/18/19 16:00 03/22/19 03:44 Catapres PO 0.1 mg Q12H JAMIN Administration Diphenhydramine HCl 25 mg 03/09/19 11:07 03/22/19 14:12 Benadryl IV 25 mg Q6H PRN Administration Itching Docusate Sodium 100 mg 03/13/19 10:00 03/22/19 10:34 Colace PO Not Given BID JAMIN Heparin Sodium (Porcine) 500 unit 03/22/19 14:42 03/22/19 15:15 Flush Heparin IV 03/22/19 18:00 500 unit ONCE NR Administration Hydralazine HCl 20 mg 03/19/19 00:21 03/19/19 00:46 Apresoline IV 20 mg Q4H PRN Administration Hypertension Hydromorphone HCl 3 mg 03/12/19 22:13 03/22/19 14:05 Dilaudid IV 3 mg Q3H PRN Administration Pain , Severe (7-10) Sodium Chloride 100 mls @ 999 mls/hr 03/12/19 07:16 Nacl 0.9% IV ALIVIA PRN Hypotension Lidocaine 1 each 03/11/19 14:00 03/22/19 14:04 Lidoderm 5% TD 1 each QDAY JAMIN Administration Neomycin/Polymyxin/Bacitracin 1 applic 03/22/19 14:43 03/22/19 15:15 Triple Antibiotic TP 03/22/19 18:00 1 applic ONCE NR Administration Oxycodone/Acetaminophen 2 tab 03/10/19 17:01 03/15/19 11:36 Percocet 5/325 PO 2 tab Q6H PRN Administration Pain, Moderate (4-6) Paroxetine HCl 20 mg 03/19/19 10:00 03/22/19 10:35 Paxil PO Not Given QDAY JAMIN Sodium Chloride 1 spray 03/13/19 09:00 03/13/19 11:28 Deep Sea NS 1 spray PRN PRN Administration Dry Nasal Passages
== END 2019-03-22 18:08 | disposition home or self-care (01) | DRG 811 ==
LOC: ED 03:33 → 3A 05:24
PROVIDERS: ADMIT Internal Medicine Hematology & Oncology; ATTEND Internal Medicine Hematology & Oncology
PROC: 30233N1 Transfusion of Nonautologous Red Blood Cells into Peripheral Vein, Percutaneous Approach (ICD-10-PCS; principal; 2019-03-09)
PROC: 5A1D70Z Performance of Urinary Filtration, Intermittent, Less than 6 Hours Per Day (ICD-10-PCS; 2019-03-09)
PROC: 5A1D70Z Performance of Urinary Filtration, Intermittent, Less than 6 Hours Per Day (ICD-10-PCS; 2019-03-13)
PROC: 5A1D70Z Performance of Urinary Filtration, Intermittent, Less than 6 Hours Per Day (ICD-10-PCS; 2019-03-15)
PROC: 5A1D70Z Performance of Urinary Filtration, Intermittent, Less than 6 Hours Per Day (ICD-10-PCS; 2019-03-17)
PROC: 5A1D70Z Performance of Urinary Filtration, Intermittent, Less than 6 Hours Per Day (ICD-10-PCS; 2019-03-20)
PROC: 5A1D70Z Performance of Urinary Filtration, Intermittent, Less than 6 Hours Per Day (ICD-10-PCS; 2019-03-22)
DX: D57.00 Hb-SS disease with crisis, unspecified (principal); N18.6 End stage renal disease; R65.10 Systemic inflammatory response syndrome (SIRS) of non-infectious origin without acute organ dysfunction; I82.503 Chronic embolism and thrombosis of unspecified deep veins of lower extremity, bilateral; D64.9 Anemia, unspecified; E83.111 Hemochromatosis due to repeated red blood cell transfusions; G89.29 Other chronic pain; M19.90 Unspecified osteoarthritis, unspecified site; Z96.642 Presence of left artificial hip joint; Z99.2 Dependence on renal dialysis; Z79.899 Other long term (current) drug therapy; Z82.49 Family history of ischemic heart disease and other diseases of the circulatory system; Z90.49 Acquired absence of other specified parts of digestive tract
CPT/HCPCS: 36415; 36430; 74018; 80048; 80074; 80202; 82728; 83550; 85007; 85014; 85018; 85025; 85045; 85660; 86850; 86900; 86901; 87040; 87086; 94640; 94760; 96374; 96375; G0378; A6250; J0360; J0692; J0696; J0895; J1170; J1200; J1642; J1885; J3370; J7030; J7040; J7050; P9016

== ENCOUNTER 2019-03-23 00:43 | Inpatient (IN) | payer MEDICARE ==
[2019-03-23 05:42] LABS: Basophils # (Auto) 0.4 K/mm3 (0.0-0.1); Basophils % (Auto) 2.1 % (0.0-1.8); Eosinophils % (Auto) 5.3 % (0.0-4.3); Hematocrit 23.5 % (35.5-45.6); Hemoglobin 7.9 gm/dl (11.8-15.2); Lymphocytes # (Auto) 3.4 K/mm3 (1.2-5.4); Lymphocytes % (Auto) 18.8 % (13.4-35.0); Mean Corpuscular HGB Conc 34 % (32-34); Mean Corpuscular Volume 85 fl (84-94); Monocytes # (Auto) 2.6 K/mm3 (0.0-0.8); Monocytes % (Auto) 14.2 % (0.0-7.3); Platelet Count 559 K/mm3 (140-440); Red Blood Count 2.76 M/mm3 (3.65-5.03); Red Cell Distribution Width 18.9 % (13.2-15.2)
[2019-03-23] MEDS ORDERED: ZOFRAN IV ONE (05:51)
[2019-03-23] MEDS ORDERED: DILAUDID IV ONE ×3 (05:51→09:18)
[2019-03-23] MEDS ORDERED: NACL 0.9% 1000 ML 1,000 ML IV ONE (05:52)
[2019-03-23] MEDS ORDERED: BENADRYL ONE (06:03)
[2019-03-23] MEDS ORDERED: BENADRYL IV ONE (06:13)
--- NOTE | 2019-03-23 06:21 | Emergency Department Report ---
ED General Adult HPI - General Chief complaint: Sickle Cell Crisis Stated complaint: SICKLE CELL CRISIS Time Seen by Provider: 03/23/19 06:19 Source: patient Mode of arrival: Ambulatory Limitations: No Limitations - History of Present Illness Initial comments: Patient is a 43-year-old male that presents emergency room with complaints of lower back pain and right leg pain. Patient states his pain started 3 hours prior to arrival. Patient states his pain is a 10 out of 10. Patient states pain is worse with movement better with rest. Patient states he has sickle cell this feels like another sickle cell crisis. Patient states she just left the [facility] 4 hours ago but he is not able to get his pain under control. -: Sudden Severity scale (0 -10): 10 Consistency: constant Improves with: rest Worsens with: movement Associated Symptoms: denies other symptoms Treatments Prior to Arrival: other - Related Data Home Medications Medication Instructions Recorded Confirmed Last Taken Folic Acid [Folvite] 1 mg PO QDAY 05/08/15 03/09/19 03/08/19 diphenhydrAMINE [Benadryl CAP] 25 mg PO Q6HR PRN 05/08/15 03/09/19 03/08/19 Oxycodone HCl/Acetaminophen 1 each PO Q6HR PRN 10/14/15 03/09/19 03/08/19 [Percocet 10/325 mg] Rivaroxaban [Xarelto] 20 mg PO QDAY 06/07/17 03/09/19 03/08/19 Allergies Allergy/AdvReac Type Severity Reaction Status Date / Time hydroxyzine HCl Allergy Hives Verified 10/24/15 07:44 [From Vistaril] hydroxyzine pamoate Allergy Hives Verified 10/24/15 07:44 [From Vistaril] ED Review of Systems ROS: Stated complaint: SICKLE CELL CRISIS Other details as noted in HPI Constitutional: denies: chills, fever Eyes: denies: eye pain, eye discharge, vision change ENT: denies: ear pain, throat pain Respiratory: denies: cough, shortness of breath, wheezing Cardiovascular: denies: chest pain, palpitations Endocrine: no symptoms reported Gastrointestinal: denies: abdominal pain, nausea, diarrhea Genitourinary: denies: urgency, dysuria Musculoskeletal: back pain. denies: joint swelling, arthralgia Skin: denies: rash, lesions Neurological: denies: headache, weakness, paresthesias Psychiatric: denies: anxiety, depression Hematological/Lymphatic: denies: easy bleeding, easy bruising ED Past Medical Hx - Past Medical History Previous Medical History?: Yes Hx Hypertension: No Hx Congestive Heart Failure: No Hx Diabetes: No Hx Deep Vein Thrombosis: Yes Hx Pulmonary Embolism: No Hx GERD: No Hx Liver Disease: Yes (enlarged) Hx Renal Disease: No Hx Sickle Cell Disease: Yes Hx Arthritis: Yes Hx Kidney Stones: No Hx Asthma: No Hx COPD: No Hx Tuberculosis: No Hx HIV: No - Surgical History Past Surgical History?: Yes Hx Cholecystectomy: Yes (11 years) Hx Appendectomy: Yes (17 years old) Additional Surgical History: alessandra filter. PORT RIGHT CHEST, left hip replacement - Family History Family history: no significant - Social History Smoking Status: Never Smoker Substance Use Type: None - Medications Home Medications: Home Medications Medication Instructions Recorded Confirmed Last Taken Type Folic Acid [Folvite] 1 mg PO QDAY 05/08/15 03/09/19 03/08/19 History diphenhydrAMINE [Benadryl CAP] 25 mg PO Q6HR PRN 05/08/15 03/09/19 03/08/19 History Oxycodone HCl/Acetaminophen 1 each PO Q6HR PRN 10/14/15 03/09/19 03/08/19 History [Percocet 10/325 mg] Rivaroxaban [Xarelto] 20 mg PO QDAY 06/07/17 03/09/19 03/08/19 History ED Physical Exam - General Limitations: No Limitations General appearance: alert, in no apparent distress - Head Head exam: Present: atraumatic, normocephalic - Eye Eye exam: Present: normal appearance - ENT ENT exam: Present: mucous membranes dry - Neck Neck exam: Present: normal inspection - Respiratory Respiratory exam: Present: normal lung sounds bilaterally. Absent: respiratory distress - Cardiovascular Cardiovascular Exam: Present: regular rate, normal rhythm. Absent: systolic murmur, diastolic murmur, rubs, gallop - GI/Abdominal GI/Abdominal exam: Present: soft, normal bowel sounds - Rectal Rectal exam: Present: deferred - Extremities Exam Extremities exam: Present: normal inspection - Back Exam Back exam: Present: normal inspection - Neurological Exam Neurological exam: Present: alert, oriented X3 - Psychiatric Psychiatric exam: Present: normal affect, normal mood - Skin Skin exam: Present: warm, dry, intact, normal color. Absent: rash ED Course Vital Signs 03/23/19 03/23/19 03/23/19 01:09 04:49 05:00 Temperature 98.1 F Pulse Rate 81 Respiratory 16 Rate Blood Pressure 146/89 Blood Pressure 149/85 [Right] O2 Sat by Pulse 98 94 92 Oximetry 03/23/19 03/23/19 03/23/19 05:15 05:30 05:45 Temperature Pulse Rate Respiratory Rate Blood Pressure 146/89 140/85 135/91 Blood Pressure [Right] O2 Sat by Pulse 90 97 85 Oximetry 03/23/19 03/23/19 03/23/19 06:00 06:16 06:30 Temperature Pulse Rate Respiratory Rate Blood Pressure 135/89 93/68 131/88 Blood Pressure [Right] O2 Sat by Pulse Oximetry 03/23/19 03/23/19 03/23/19 06:45 07:00 07:15 Temperature Pulse Rate Respiratory Rate Blood Pressure 140/102 149/101 149/96 Blood Pressure [Right] O2 Sat by Pulse Oximetry 03/23/19 03/23/19 03/23/19 07:30 08:02 08:15 Temperature Pulse Rate Respiratory Rate Blood Pressure 128/83 146/94 166/128 Blood Pressure [Right] O2 Sat by Pulse Oximetry 03/23/19 03/23/19 03/23/19 08:31 08:45 09:00 Temperature Pulse Rate Respiratory Rate Blood Pressure 144/81 130/91 139/94 Blood Pressure [Right] O2 Sat by Pulse Oximetry 03/23/19 03/23/19 03/23/19 09:15 09:25 09:31 Temperature Pulse Rate Respiratory 16 Rate Blood Pressure 134/105 133/97 Blood Pressure [Right] O2 Sat by Pulse Oximetry 03/23/19 03/23/19 03/23/19 09:37 09:45 10:00 Temperature Pulse Rate Respiratory 16 Rate Blood Pressure 132/86 134/81 Blood Pressure [Right] O2 Sat by Pulse 99 Oximetry - Reevaluation(s) Reevaluation #1: I discussed all results with patient. Patient agrees with plan of care. Patient will be admitted to the patient's primary care service. 03/23/19 07:34 - Consultations Consultation #1: I discussed case with Dr. Myers. Dr. Myers wants patient to be admitted for pain management. 03/23/19 07:35 ED Medical Decision Making - Lab Data Result diagrams: 03/23/19 05:30 03/23/19 04:30 - Medical Decision Making Ration is a 43-year-old male that presents emergency room with complaints of sickle cell crisis. Patient is having significant back pain or lower extremity pain. Patient admitted to his primary care's inpatient service. Patient's labs this with end-stage renal disease and anemia. Patient's reticulocyte section negative. Due to the fact the patient's pain is intractable we will admit patient for pain management. - Differential Diagnosis sickle cell pain. Back pain. Leg pain. Critical Care Time: Yes Critical care attestation.: If time is entered above; I have spent that time in minutes in the direct care of this critically ill patient, excluding procedure time. Critical Care Time: 35 minutes ED Disposition Clinical Impression: Sickle cell pain crisis, ESRD (end stage renal disease) Anemia Qualifiers: Anemia type: unspecified type Qualified Code(s): D64.9 - Anemia, unspecified Back pain Qualifiers: Back pain location: low back pain Chronicity: acute Back pain laterality: bilateral Sciatica presence: without sciatica Qualified Code(s): M54.5 - Low back pain Disposition: OP ADMIT IP TO THIS HOSP Is pt being admited?: Yes Does the pt Need Aspirin: No Condition: Critical Time of Disposition: 07:36
[2019-03-23 06:34] LABS: Albumin 3.5 g/dL (3.9-5); Calcium 8.8 mg/dL (8.4-10.2)
[2019-03-23] MEDS ORDERED: DILAUDID ONE (09:23)
[2019-03-23] MEDS: DILAUDID IV PRN ×3 (15:56→23:15)
[2019-03-23] MEDS: NACL 0.9% 1000 ML 1,000 ML IV SCH (15:56)
[2019-03-23] MEDS: BENADRYL IV PRN ×2 (15:56→23:14)
[2019-03-23] MEDS: TORADOL IV SCH ×2 (16:59→23:19)
--- NOTE | 2019-03-23 19:21 | History and Physical Report ---
History of Present Illness Date of examination: 03/23/19 Date of admission: 03/23/19 07:38 Chief complaint: Acute Diffuse joint /back/leg pain. Past History Past Medical History: anemia, renal failure Past Surgical History: Other (Hip surgery) Social history: no significant social history, lives with family Family history: no significant family history Medications and Allergies Allergies Allergy/AdvReac Type Severity Reaction Status Date / Time hydroxyzine HCl Allergy Hives Verified 10/24/15 07:44 [From Vistaril] hydroxyzine pamoate Allergy Hives Verified 10/24/15 07:44 [From Vistaril] Home Medications Medication Instructions Recorded Confirmed Last Taken Type Folic Acid [Folvite] 1 mg PO QDAY 05/08/15 03/23/19 03/22/19 History diphenhydrAMINE [Benadryl CAP] 25 mg PO Q6HR PRN 05/08/15 03/23/19 03/22/19 History Oxycodone HCl/Acetaminophen 1 each PO Q6HR PRN 10/14/15 03/23/19 03/22/19 History [Percocet 10/325 mg] Rivaroxaban [Xarelto] 20 mg PO QDAY 06/07/17 03/23/19 03/22/19 History Active Meds: Active Medications Diphenhydramine HCl (Benadryl) 25 mg IV Q6H PRN PRN Reason: Itching Last Admin: 03/23/19 15:56 Dose: 25 mg Documented by: Hydromorphone HCl (Dilaudid) 3 mg IV Q3H PRN PRN Reason: Pain , Severe (7-10) Last Admin: 03/23/19 15:56 Dose: 3 mg Documented by: Sodium Chloride (Nacl 0.9% 1000 Ml) 1,000 mls @ 42 mls/hr IV DIRECT JAMIN Last Admin: 03/23/19 15:56 Dose: 42 mls/hr Documented by: Ketorolac Tromethamine (Toradol) 30 mg IV Q6H JAMIN Stop: 03/24/19 11:01 Last Admin: 03/23/19 16:59 Dose: 30 mg Documented by: Review of Systems Constitutional: chronic pain Respiratory: pain, home oxygen Gastrointestinal: jaundice Musculoskeletal: low back pain Exam - Constitutional Vitals: Temp Pulse Resp BP Pulse Ox 97.9 F 84 19 121/76 91 03/23/19 16:38 03/23/19 16:38 03/23/19 16:38 03/23/19 16:38 03/23/19 16:38 General appearance: Present: mild distress, cachectic - EENT Eyes: Present: PERRL ENT: hearing intact, clear oral mucosa - Neck Neck: Present: supple, normal ROM - Respiratory Respiratory effort: normal Respiratory: bilateral: CTA - Cardiovascular Heart Sounds: Present: S1 & S2. Absent: rub, click - Extremities Extremities: pulses symmetrical, No edema Peripheral Pulses: within normal limits - Abdominal General gastrointestinal: Present: soft, non-tender, non-distended, normal bowel sounds Male genitourinary: Present: deferred - Rectal Rectal Exam: deferred - Integumentary Integumentary: Present: clear, warm, dry - Musculoskeletal Musculoskeletal: gait normal, strength equal bilaterally - Psychiatric Psychiatric: appropriate mood/affect, intact judgment & insight - Neurologic Neurologic: CNII-XII intact, moves all extremities Results - Labs CBC & Chem 7: 03/23/19 05:30 03/23/19 04:30 Labs: Abnormal lab results 03/23/19 03/23/19 Range/Units 04:30 05:30 WBC 18.2 H (4.5-11.0) K/mm3 RBC 2.76 L (3.65-5.03) M/mm3 Hgb 7.9 L (11.8-15.2) gm/dl Hct 23.5 L (35.5-45.6) % RDW 18.9 H (13.2-15.2) % Plt Count 559 H (140-440) K/mm3 [place] % (Auto) 14.2 H (0.0-7.3) % Eos % (Auto) 5.3 H (0.0-4.3) % Baso % (Auto) 2.1 H (0.0-1.8) % [place] # 2.6 H (0.0-0.8) K/mm3 Eos # 1.0 H (0.0-0.4) K/mm3 Baso # 0.4 H (0.0-0.1) K/mm3 Seg Neutrophils # 10.8 H (1.8-7.7) K/mm3 Sodium 136 L (137-145) mmol/L Chloride 97.8 L (98-107) mmol/L Creatinine 2.3 H (0.8-1.5) mg/dL Total Bilirubin 1.50 H (0.1-1.2) mg/dL Alkaline Phosphatase 270 H (35-129) units/L Albumin 3.5 L (3.9-5) g/dL Assessment and Plan - Patient Problems (1) Sickle cell pain crisis Current Visit: Yes Status: Acute Plan to address problem: Pain control (2) Anemia Current Visit: Yes Status: Chronic Qualifiers: Anemia type: unspecified type Qualified Code(s): D64.9 - Anemia, unspecif ied Plan to address problem: Monitor labs. (3) ESRD (end stage renal disease) Current Visit: Yes Status: Chronic Plan to address problem: Follow Renal /HD. (4) Dehydration Current Visit: No Status: Acute Plan to address problem: KVO fluid (5) Sickle cell pain crisis Current Visit: Yes Status: Acute Plan to address problem: Pain control
[2019-03-23] MEDS ORDERED: NON-FORMULARY (Oxycodone Hcl/Acetaminophen [Percocet 10/325 Mg] 1 EACH) PO PRN (19:29)
[2019-03-23] MEDS ORDERED: PERCOCET 5/325 PO PRN (21:04)
[2019-03-23 21:29] LABS: Iron 118 ug/dL (49-181); Total Iron Binding Capacity 242 mcg/dL (250-450)
[2019-03-23] MEDS: ELIQUIS PO SCH (23:16)
[2019-03-24] MEDS: DILAUDID IV PRN ×7 (02:48→23:16)
[2019-03-24] MEDS: BENADRYL IV PRN ×3 (06:18→19:58)
[2019-03-24] MEDS: TORADOL IV SCH ×4 (06:18→18:34)
[2019-03-24] MEDS ORDERED: NACL 0.9% 100 ML IV PRN (10:09)
[2019-03-24] MEDS: FOLVITE PO SCH (10:22)
[2019-03-24] MEDS: ELIQUIS PO SCH ×2 (10:23→22:20)
--- NOTE | 2019-03-24 12:22 | Consultation ---
History of Present Illness - Reason for Consult end stage renal disease - History of Present Illness 43 y/o AAM with ESRD in the setting of sickle cell disease, HTN, with frequent admissions for sickle cell crisis/pain management, who was just discharged from our hospital, was readmitted secondary to recurrent generalized pain and concern for sickle cell crisis. Patient is well known to us from the outpatient dialysis unit. Past History Past Medical History: anemia, renal failure Past Surgical History: Other (Hip surgery) Social history: no significant social history, lives with family Family history: no significant family history Medications and Allergies Allergies Allergy/AdvReac Type Severity Reaction Status Date / Time hydroxyzine HCl Allergy Hives Verified 10/24/15 07:44 [From Vistaril] hydroxyzine pamoate Allergy Hives Verified 10/24/15 07:44 [From Vistaril] Home Medications Medication Instructions Recorded Confirmed Last Taken Type Folic Acid [Folvite] 1 mg PO QDAY 05/08/15 03/23/19 03/22/19 History diphenhydrAMINE [Benadryl CAP] 25 mg PO Q6HR PRN 05/08/15 03/23/19 03/22/19 History Oxycodone HCl/Acetaminophen 1 each PO Q6HR PRN 10/14/15 03/23/19 03/22/19 Histo ry [Percocet 10/325 mg] Rivaroxaban [Xarelto] 20 mg PO QDAY 06/07/17 03/23/19 03/22/19 History Active Meds: Active Medications Apixaban (Eliquis) 2.5 mg PO Q12HR JAMIN; Protocol Last Admin: 03/24/19 10:23 Dose: 2.5 mg Documented by: Diphenhydramine HCl (Benadryl) 25 mg IV Q6H PRN PRN Reason: Itching Last Admin: 03/24/19 06:18 Dose: 25 mg Documented by: Folic Acid (Folvite) 1 mg PO QDAY JAMIN Last Admin: 03/24/19 10:22 Dose: 1 mg Documented by: Hydromorphone HCl (Dilaudid) 3 mg IV Q3H PRN PRN Reason: Pain , Severe (7-10) Last Admin: 03/24/19 09:56 Dose: 3 mg Documented by: Sodium Chloride (Nacl 0.9% 1000 Ml) 1,000 mls @ 42 mls/hr IV DIRECT JAMIN Last Admin: 03/23/19 15:56 Dose: 42 mls/hr Documented by: Sodium Chloride (Nacl 0.9%) 100 mls @ 999 mls/hr IV ALIVIA PRN PRN Reason: Hypotension Oxycodone/Acetaminophen (Percocet 5/325) 1 tab PO Q6H PRN PRN Reason: Pain, Moderate (4-6) Review of Systems All systems: negative Constitutional: fatigue, weakness Musculoskeletal: low back pain, myalgias Exam - Vital Signs Vital signs: Vital Signs Temp Pulse Resp BP Pulse Ox 98.1 F 81 16 149/85 98 03/23/19 01:03/23/19 01:03/23/19 01:03/23/19 01:03/23/19 01:09 - General Appearance General appearance: appears stated age, chronically ill, frail EENT: ATNC, PERRL Neck: Present: neck supple, trachea midline Respiratory: Clear to Ascultation, Normal Exam Heart: regular, S1S2 Gastrointestinal: Present: normal, normoactive bowel sounds Integumentary: no rash, warm and dry Neurologic: no focal deficit, alert and oriented x3 Psychiatric: mood/affect appropriate, cooperative Results - Lab Results 03/23/19 05:30 03/23/19 04:30 Most recent lab results Calcium 8.8 mg/dL (8.4-10.2) 03/23/19 04:30 Assessment and Plan - Patient Problems (1) ESRD (end stage renal disease) Current Visit: Yes Status: Chronic Plan to address problem: Maintain on TTS inpatient HD schedule. Patient seen on HD this am and is tolerating session well. (2) Sickle cell pain crisis Current Visit: Yes Status: Acute Plan to address problem: Management per primary team. (3) Vasoocclusive sickle cell crisis Current Visit: No Status: Resolved Plan to address problem: Pain management per primary attending. Avoid hypotension during HD, which can precipitate symptoms.
--- NOTE | 2019-03-24 13:02 | Progress Note ---
Assessment and Plan - Patient Problems (1) Sickle cell pain crisis Current Visit: Yes Status: Acute Plan to address problem: Pain control (2) Anemia Current Visit: Yes Status: Chronic Qualifiers: Anemia type: unspecified type Qualified Code(s): D64.9 - Anemia, unspecified Plan to address problem: Monitor labs. (3) ESRD (end stage renal disease) Current Visit: Yes Status: Chronic Plan to address problem: Follow Renal /HD. (4) Dehydration Current Visit: No Status: Acute Plan to address problem: KVO fluid (5) Sickle cell pain crisis Current Visit: Yes Status: Acute Plan to address problem: Pain control Subjective Date of service: 03/24/19 Principal diagnosis: sickle pain crisis. Interval history: Patient seen/examined, resting in bed, at the HD center.Labs reviewed, and ok at 7.9 hgb. Objective - Constitutional Vitals: Vital Signs - 12hr 03/24/19 03/24/19 05:44 06:19 Temperature 98.2 F Pulse Rate 94 H 87 Respiratory 17 18 Rate Blood Pressure 127/94 O2 Sat by Pulse 91 97 Oximetry General appearance: Present: mild distress, cachectic - EENT Eyes: PERRL, EOM intact ENT: hearing intact, clear oral mucosa Ears: bilateral: normal - Neck Neck: supple, normal ROM - Respiratory Respiratory effort: normal Respiratory: bilateral: CTA - Breasts Breasts: deferred - Cardiovascular Rhythm: regular Heart Sounds: Present: S1 & S2. Absent: gallop, rub Extremities: pulses intact, No edema, normal color, Full ROM - Gastrointestinal General gastrointestinal: Present: soft, non-tender, non-distended, normal bowel sounds - Genitourinary Male genitourinary: deferred - Integumentary Integumentary: clear, warm, dry - Musculoskeletal Musculoskeletal: 1, strength equal bilaterally - Neurologic Neurologic: moves all extremities - Psychiatric Psychiatric: memory intact, appropriate mood/affect, intact judgment & insight - Labs CBC & Chem 7: 03/23/19 05:30 03/23/19 04:30 Labs: Abnormal lab results 03/23/19 03/23/19 Range/Units 20:33 20:33 TIBC 242 L (250-450) mcg/dL Ferritin > 2000.0 H (13.0-400.0) ng/mL
[2019-03-24] MEDS: NACL 0.9% 1000 ML 1,000 ML IV SCH (17:01)
[2019-03-24] MEDS ORDERED: TORADOL IV SCH (19:00)
[2019-03-24] MEDS ORDERED: NACL 0.9 (PRIMING MACHINE ONLY DIALYSIS) MC ONE (23:25)
[2019-03-25] MEDS: DILAUDID IV PRN ×7 (02:59→23:53)
[2019-03-25] MEDS: BENADRYL IV PRN ×4 (03:00→23:54)
[2019-03-25] MEDS: ELIQUIS PO SCH ×2 (10:43→22:41)
[2019-03-25] MEDS: FOLVITE PO SCH (10:43)
--- NOTE | 2019-03-25 12:10 | Progress Note ---
Assessment and Plan - Patient Problems (1) ESRD (end stage renal disease) Current Visit: Yes Status: Chronic Plan to address problem: Maintain on TTS inpatient HD schedule. (2) Sickle cell pain crisis Current Visit: Yes Status: Acute Plan to address problem: Management per primary team. Subjective Date of service: 03/25/19 Principal diagnosis: sickle pain crisis. Interval history: No acute issues overnight. Pain better controlled this am. Patient tolerated HD well without any acute issues. Objective - Vital Signs Vital signs: Vital Signs - 12hr 03/25/19 04:34 Temperature 98.4 F Pulse Rate 79 Respiratory 24 Rate Blood Pressure 158/101 O2 Sat by Pulse 94 Oximetry - General Appearance General appearance: appears stated age, chronically ill, frail EENT: ATNC, PERRL Neck: no JVD, no thyromegaly Respiratory: Present: Clear to Ascultation, Normal Exam Cardiology: regular, S1S2 Gastrointestinal: normal, normoactive bowel sounds Integumentary: no rash, warm and dry Neurologic: no focal deficit, alert and oriented x3 Psychiatric: mood/affect appropriate, cooperative - Lab 03/23/19 05:30 03/23/19 04:30 Most recent lab results Calcium 8.8 mg/dL (8.4-10.2) 03/23/19 04:30 - Allied health notes Allied health notes reviewed: nursing Medications & Allergies - Medications Allergies/Adverse Reactions: Allergies hydroxyzine HCl [From Vistaril] Allergy (Verified 10/24/15 07:44) Hives hydroxyzine pamoate [From Vistaril] Allergy (Verified 10/24/15 07:44) Hives Home Medications: Home Medications Medication Instructions Recorded Confirmed Last Taken Type Folic Acid [Folvite] 1 mg PO QDAY 05/08/15 03/23/19 03/22/19 History diphenhydrAMINE [Benadryl CAP] 25 mg PO Q6HR PRN 05/08/15 03/23/19 03/22/19 History Oxycodone HCl/Acetaminophen 1 each PO Q6HR PRN 10/14/15 03/23/19 03/22/19 History [Percocet 10/325 mg] Rivaroxaban [Xarelto] 20 mg PO QDAY 06/07/17 03/23/19 03/22/19 History Paxil 20 mg PO DAILY 03/25/19 03/25/19 Unknown History Active Medications: Generic Name Dose Route Start Last Admin Trade Name Freq PRN Reason Stop Dose Admin Apixaban 2.5 mg 03/23/19 22:00 03/25/19 10:43 Eliquis PO 2.5 mg Q12HR JAMIN Administration Protocol Diphenhydramine HCl 25 mg 03/23/19 15:02 03/25/19 10:43 Benadryl IV 25 mg Q6H PRN Administration Itching Folic Acid 1 mg 03/24/19 10:00 03/25/19 10:43 Folvite PO 1 mg QDAY JAMIN Administration Hydromorphone HCl 3 mg 03/23/19 15:00 03/25/19 10:42 Dilaudid IV 3 mg Q3H PRN Administration Pain , Severe (7-10) Sodium Chloride 1,000 mls @ 42 mls/hr 03/23/19 16:00 03/24/19 17:01 Nacl 0.9% 1000 Ml IV 42 mls/hr DIRECT JAMIN Administration Sodium Chloride 100 mls @ 999 mls/hr 03/24/19 10:09 Nacl 0.9% IV ALIVIA PRN Hypotension Oxycodone/Acetaminophen 1 tab 03/23/19 21:04 Percocet 5/325 PO Q6H PRN Pain, Moderate (4-6)
[2019-03-25] MEDS: NACL 0.9% 1000 ML 1,000 ML IV SCH (14:09)
--- NOTE | 2019-03-25 15:39 | Progress Note ---
Assessment and Plan - Patient Problems (1) Sickle cell pain crisis Current Visit: Yes Status: Acute Plan to address problem: Pain control (2) Anemia Current Visit: Yes Status: Chronic Qualifiers: Anemia type: unspecified type Qualified Code(s): D64.9 - Anemia, unspecified Plan to address problem: Monitor labs. (3) ESRD (end stage renal disease) Current Visit: Yes Status: Chronic Plan to address problem: Follow Renal /HD. (4) Dehydration Current Visit: No Status: Acute Plan to address problem: KVO fluid (5) Sickle cell pain crisis Current Visit: Yes Status: Acute Plan to address problem: Pain control Subjective Date of service: 03/25/19 Principal diagnosis: sickle pain crisis. Interval history: Patient seen/examined, resting in bed, at the HD center.Labs reviewed, and ok at 7.9 hgb. Patient seen/examined, resting in bed, records reviewed, case d/w patient.C/o pain at 7/10, at this time. Objective - Constitutional Vitals: Vital Signs - 12hr 03/25/19 03/25/19 04:34 11:46 Temperature 98.4 F 98.4 F Pulse Rate 79 82 Respiratory 24 18 Rate Blood Pressure 158/101 143/77 O2 Sat by Pulse 94 94 Oximetry General appearance: Present: mild distress, cachectic - EENT Eyes: PERRL, EOM intact ENT: hearing intact, clear oral mucosa Ears: bilateral: normal - Neck Neck: supple, normal ROM - Respiratory Respiratory effort: normal Respiratory: bilateral: CTA - Breasts Breasts: deferred - Cardiovascular Rhythm: regular Heart Sounds: Present: S1 & S2. Absent: gallop, rub Extremities: pulses intact, No edema, normal color, Full ROM - Gastrointestinal General gastrointestinal: Present: soft, non-tender, non-distended, normal bowel sounds Rectal Exam: deferred - Genitourinary Male genitourinary: deferred - Integumentary Integumentary: clear, warm, dry - Musculoskeletal Musculoskeletal: 1, strength equal bilaterally - Neurologic Neurologic: moves all extremities - Psychiatric Psychiatric: memory intact, appropriate mood/affect, intact judgment & insight - Labs CBC & Chem 7: 03/23/19 05:30 03/23/19 04:30
[2019-03-26] MEDS: DILAUDID IV PRN ×7 (03:00→21:31)
[2019-03-26] MEDS: BENADRYL IV PRN ×3 (05:57→18:32)
[2019-03-26] MEDS: ELIQUIS PO SCH ×2 (09:10→21:32)
[2019-03-26] MEDS: FOLVITE PO SCH (09:10)
--- NOTE | 2019-03-26 09:45 | Progress Note ---
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 (3) ESRD (end stage renal disease) Current Visit: Yes Status: Chronic Plan to address problem: We'll get 24-hour urine for creatinine clearance. Discussed with mother who wants to ascertain if there is an improvement in kidney function. Creatinine is down but may be due to decreased muscle mass with decreased activity (4) Elevated white blood cell count Current Visit: Yes Status: Acute Plan to address problem: Follow-up cultures. Negative so far. May be secondary to sickle cell crisis Subjective Date of service: 03/26/19 Principal diagnosis: sickle pain crisis. Interval history: Patient seen lying in bed. Still complaining of limb pain. No chest pain or shortness of breath Objective - Exam Narrative Exam: Middle-aged -Malag[place] male lying in bed in no acute distress HEENT: NCAT, pink oral mucous membrane Neck: Supple, no venous distention CVS: S1S2 RRR with no murmur, rub or gallop Chest: Clear to auscultation Abdomen: Protuberant, soft, nontender, no organomegaly, bowel sounds are present Extremities: No edema Neuro: Awake, alert no focal deficits - Vital Signs Vital signs: Vital Signs - 12hr 03/25/19 03/26/19 21:59 04:52 Temperature 98.0 F 98.9 F Pulse Rate 79 88 Respiratory 20 18 Rate Blood Pressure 155/101 150/102 O2 Sat by Pulse 94 96 Oximetry - Lab 03/23/19 05:30 03/23/19 04:30 Most recent lab results Calcium 8.8 mg/dL (8.4-10.2) 03/23/19 04:30 Medications & Allergies - Medications Allergies/Adverse Reactions: Allergies hydroxyzine HCl [From Vistaril] Allergy (Verified 10/24/15 07:44) Hives hydroxyzine pamoate [From Vistaril] Allergy (Verified 10/24/15 07:44) Hives Home Medications: Home Medications Medication Instructions Recorded Confirmed Last Taken Type Folic Acid [Folvite] 1 mg PO QDAY 10/29/15 09/13/19 09/12/19 History diphenhydrAMINE [Benadryl CAP] 25 mg PO Q6HR PRN 05/08/15 03/23/19 03/22/19 History Oxycodone HCl/Acetaminophen 1 each PO Q6HR PRN 10/14/15 03/23/19 03/22/19 History [Percocet 10/325 mg] Rivaroxaban [Xarelto] 20 mg PO QDAY 06/07/17 03/23/19 03/22/19 History Paxil 20 mg PO DAILY 03/25/19 03/25/19 Unknown History Active Medications: Generic Name Dose Route Start Last Admin Trade Name Freq PRN Reason Stop Dose Admin Apixaban 2.5 mg 03/23/19 22:00 03/26/19 09:10 Eliquis PO 2.5 mg Q12HR JAMIN Administration Protocol Diphenhydramine HCl 25 mg 03/23/19 15:02 03/26/19 05:57 Benadryl IV 25 mg Q6H PRN Administration Itching Folic Acid 1 mg 03/24/19 10:00 03/26/19 09:10 Folvite PO 1 mg QDAY JAMIN Administration Hydromorphone HCl 3 mg 03/23/19 15:00 03/26/19 09:10 Dilaudid IV 3 mg Q3H PRN Administration Pain , Severe (7-10) Sodium Chloride 1,000 mls @ 42 mls/hr 03/23/19 16:00 03/25/19 14:09 Nacl 0.9% 1000 Ml IV 42 mls/hr DIRECT JAMIN Administration Sodium Chloride 100 mls @ 999 mls/hr 03/24/19 10:09 Nacl 0.9% IV ALIVIA PRN Hypotension Oxycodone/Acetaminophen 1 tab 03/23/19 21:04 Percocet 5/325 PO Q6H PRN Pain, Moderate (4-6)
[2019-03-26] MEDS: NACL 0.9% 1000 ML 1,000 ML IV SCH (12:23)
--- NOTE | 2019-03-26 18:32 | Progress Note ---
Assessment and Plan - Patient Problems (1) Sickle cell pain crisis Current Visit: Yes Status: Acute Plan to address problem: Pain control (2) Anemia Current Visit: Yes Status: Chronic Qualifiers: Anemia type: unspecified type Qualified Code(s): D64.9 - Anemia, unspecified Plan to address problem: Monitor labs. (3) ESRD (end stage renal disease) Current Visit: Yes Status: Chronic Plan to address problem: Follow Renal /HD. (4) Dehydration Current Visit: No Status: Acute Plan to address problem: KVO fluid (5) Sickle cell pain crisis Current Visit: Yes Status: Chronic Plan to address problem: Pain control Subjective Date of service: 03/26/19 Principal diagnosis: sickle pain crisis. Interval history: Patient seen/examined, resting in bed, at the HD center.Labs reviewed, and ok at 7.9 hgb. Patient seen/examined, resting in bed, records reviewed, case d/w patient.C/o pain at 7/10, at this time. Patient seen/examined, resting in bed, labs /notes reviewed, case d/w him.I will plan for d/c home tomorrow. Objective - Constitutional Vitals: Vital Signs - 12hr 03/26/19 12:49 Temperature 98.6 F Pulse Rate 90 Respiratory 14 Rate Blood Pressure 158/91 O2 Sat by Pulse 94 Oximetry General appearance: Present: mild distress, well-nourished - EENT Eyes: PERRL, EOM intact ENT: hearing intact, clear oral mucosa Ears: bilateral: normal - Neck Neck: supple, normal ROM - Respiratory Respiratory effort: normal Respiratory: bilateral: CTA - Breasts Breasts: deferred - Cardiovascular Rhythm: regular Heart Sounds: Present: S1 & S2. Absent: gallop, rub Extremities: pulses intact, No edema, normal color, Full ROM - Gastrointestinal General gastrointestinal: Present: soft, non-tender, non-distended, normal bowel sounds - Genitourinary Male genitourinary: deferred - Integumentary Integumentary: clear, warm, dry - Musculoskeletal Musculoskeletal: 1, strength equal bilaterally - Neurologic Neurologic: moves all extremities - Psychiatric Psychiatric: memory intact, appropriate mood/affect, intact judgment & insight - Labs CBC & Chem 7: 03/23/19 05:30 03/23/19 04:30
[2019-03-27] MEDS: DILAUDID IV PRN ×7 (00:16→21:23)
[2019-03-27] MEDS: BENADRYL IV PRN ×4 (00:16→21:24)
[2019-03-27 07:32] LABS: Hematocrit 20.7 % (35.5-45.6); Hemoglobin 6.8 gm/dl (11.8-15.2); Mean Corpuscular HGB Conc 33 % (32-34); Mean Corpuscular Volume 85 fl (84-94); Platelet Count 512 K/mm3 (140-440); Red Blood Count 2.44 M/mm3 (3.65-5.03); Red Cell Distribution Width 18.7 % (13.2-15.2)
[2019-03-27 07:39] LABS: Calcium 8.6 mg/dL (8.4-10.2)
[2019-03-27 09:56] LABS: Basophils % (Manual) 0 % (0.0-1.8); Eosinophils % (Manual) 0 % (0.0-4.3); Total Cells Counted 100
[2019-03-27 09:57] LABS: Hypochromasia 1+; Platelet Estimate Consistent w Auto; Sickle Cells Few; Target Cells Few
[2019-03-27] MEDS ORDERED: NACL 0.9 (PRIMING MACHINE ONLY DIALYSIS) MC ONE ×2 (10:33→22:14)
[2019-03-27] MEDS: FOLVITE PO SCH (15:01)
[2019-03-27] MEDS: ELIQUIS PO SCH ×2 (15:01→21:24)
[2019-03-27 16:05] LABS: Creatinine,Urine 33.1 mg/dL (0.1-20.0)
[2019-03-27 16:38] LABS: Creatinine 24 Hour,Urine 0.4 (0.8-2.8)
--- NOTE | 2019-03-27 18:58 | Discharge Summary ---
Providers - Providers Date of Admission: 03/26/19 10:12 Date of discharge: 03/27/19 Attending physician: ACACIA SANDRA 03/23/19 15:04 Consult to Physician [CONS] Routine Comment: Consulting Provider: EDGARDO YANCEY Physician Instructions: Reason For Exam: RENAL PATIENT Primary care physician: DIRECTOR OF PUBLIC SAFETY Hospitalization Reason for admission: SCD/Pain crisis./anemia. Condition: Stable Hospital course: Patient presented to the ER with CC of difuse pain in the lower back, ,unable to control it with his home meds. He was admitted for sxs management/control. He had his HD while here, labs monitored, case updated with the patient, and his MOM.He is seen today, and rated his pain at 6-7/10, I had a lenghty talk with him, and his grandma. Will keep over night, for more pain control, and d/c home in am. Disposition: DC- TO HOME OR SELFCARE - Discharge Diagnoses (1) Sickle cell pain crisis Status: Acute (2) Anemia Status: Chronic Qualifiers: Anemia type: unspecified type Qualified Code(s): D64.9 - Anemia, unspecified (3) ESRD (end stage renal disease) Status: Chronic (4) Dehydration Status: Chronic (5) Sickle cell pain crisis Status: Chronic Core Measure Documentation - Palliative Care Palliative Care/ Comfort Measures: Not Applicable - Core Measures Any of the following diagnoses?: history only Exam - Constitutional Vitals: Temp Pulse Resp BP Pulse Ox 98.8 F 106 H 15 152/90 93 03/27/19 16:17 03/27/19 16:17 03/27/19 16:17 03/27/19 16:17 03/27/19 16:17 General appearance: Present: no acute distress, well-nourished - EENT Eyes: Present: PERRL ENT: hearing intact, clear oral mucosa - Neck Neck: Present: supple, normal ROM - Respiratory Respiratory effort: normal Respiratory: bilateral: CTA - Cardiovascular Heart Sounds: Present: S1 & S2. Absent: rub, click - Extremities Extremities: pulses symmetrical, No edema Peripheral Pulses: within normal limits - Abdominal General gastrointestinal: Present: soft, non-tender, non-distended, normal bowel sounds Male genitourinary: Present: deferred - Rectal Rectal Exam: deferred - Integumentary Integumentary: Present: clear, warm, dry - Musculoskeletal Musculoskeletal: gait normal, strength equal bilaterally - Psychiatric Psychiatric: appropriate mood/affect, intact judgment & insight - Neurologic Neurologic: CNII-XII intact, moves all extremities Plan Activity: no restrictions Diet: renal Follow up with: PRIMARY CARE, [Primary Care Provider] - 7 Days ACACIA SANDRA DO [Staff Physician] - 7 Days
--- NOTE | 2019-03-27 19:35 | Progress Note ---
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 (3) ESRD (end stage renal disease) Current Visit: Yes Status: Chronic Plan to address problem: Creatinine increased and potassium was high this morning. I doubt any significant renal recovery. Creatinine is low due to decreased muscle mass. Discussed with patient and grandmother at the bedside. We'll follow up 24-hour urine for creatinine clearance. Creatinine is low but this is probably due to decreased muscle mass with decreased activity (4) Elevated white blood cell count Current Visit: Yes Status: Acute Plan to address problem: Follow-up cultures. Negative so far. May be secondary to sickle cell crisis Subjective Date of service: 03/27/19 Principal diagnosis: sickle pain crisis. Interval history: Patient seen lying in bed. Pain is improving. No chest pain or shortness of breath Objective - Exam Narrative Exam: Middle-aged -[place] male lying in bed in no acute distress HEENT: NCAT, pink oral mucous membrane Neck: Supple, no venous distention CVS: S1S2 RRR with no murmur, rub or gallop Chest: Clear to auscultation Abdomen: Protuberant, soft, nontender, no organomegaly, bowel sounds are present Extremities: No edema Neuro: Awake, alert no focal deficits - Vital Signs Vital signs: Vital Signs - 12hr 03/27/19 03/27/19 03/27/19 09:00 09:15 09:30 Temperature 97.4 F L Pulse Rate 98 H 80 94 H Respiratory 18 Rate Blood Pressure 144/92 138/91 144/85 O2 Sat by Pulse Oximetry 03/27/19 03/27/19 03/27/19 09:45 10:00 10:15 Temperature Pulse Rate 96 H 58 L 88 Respiratory Rate Blood Pressure 170/90 157/105 148/96 O2 Sat by Pulse Oximetry 03/27/19 03/27/19 03/27/19 10:30 10:45 11:00 Temperature Pulse Rate 92 H 92 H 90 Respiratory Rate Blood Pressure 159/121 159/121 110/85 O2 Sat by Pulse Oximetry 03/27/19 03/27/19 03/27/19 11:15 11:30 11:45 Temperature Pulse Rate 90 90 92 H Respiratory Rate Blood Pressure 159/121 114/62 140/114 O2 Sat by Pulse Oximetry 03/27/19 03/27/19 03/27/19 12:00 12:15 12:36 Temperature 98.0 F 99.4 F Pulse Rate 90 93 H 103 H Respiratory 18 16 Rate Blood Pressure 140/64 162/97 157/89 O2 Sat by Pulse 95 Oximetry 03/27/19 16:17 Temperature 98.8 F Pulse Rate 106 H Respiratory 15 Rate Blood Pressure 152/90 O2 Sat by Pulse 93 Oximetry - Lab 03/27/19 07:00 03/27/19 07:00 Most recent lab results Calcium 8.6 mg/dL (8.4-10.2) 03/27/19 07:00 Phosphorus 4.60 mg/dL (2.5-4.5) H 03/27/19 07:00 Magnesium 1.70 mg/dL (1.7-2.3) 03/27/19 07:00 33.1 mg/dL (0.1-20.0) H 03/26/19 15:55 Medications & Allergies - Medications Allergies/Adverse Reactions: Allergies hydroxyzine HCl [From Vistaril] Allergy (Verified 10/24/15 07:44) Hives hydroxyzine pamoate [From Vistaril] Allergy (Verified 10/24/15 07:44) Hives Home Medications: Home Medications Medication Instructions Recorded Confirmed Last Taken Type Folic Acid [Folvite] 1 mg PO QDAY 05/08/15 03/23/19 03/22/19 History diphenhydrAMINE [Benadryl CAP] 25 mg PO Q6HR PRN 05/08/15 03/23/19 03/22/19 H istory Oxycodone HCl/Acetaminophen 1 each PO Q6HR PRN 10/14/15 03/23/19 03/22/19 History [Percocet 10/325 mg] Rivaroxaban [Xarelto] 20 mg PO QDAY 06/07/17 03/23/19 03/22/19 History Paxil 20 mg PO DAILY 03/25/19 03/25/19 Unknown History Active Medications: Generic Name Dose Route Start Last Admin Trade Name Freq PRN Reason Stop Dose Admin Apixaban 2.5 mg 03/23/19 22:00 03/27/19 15:01 Eliquis PO 2.5 mg Q12HR JAMIN Administration Protocol Diphenhydramine HCl 25 mg 03/23/19 15:02 03/27/19 14:54 Benadryl IV 25 mg Q6H PRN Administration Itching Folic Acid 1 mg 03/24/19 10:00 03/27/19 15:01 Folvite PO 1 mg QDAY JAMIN Administration Hydromorphone HCl 3 mg 03/23/19 15:00 03/27/19 18:09 Dilaudid IV 3 mg Q3H PRN Administration Pain , Severe (7-10) Sodium Chloride 1,000 mls @ 42 mls/hr 03/23/19 16:00 03/26/19 12:23 Nacl 0.9% 1000 Ml IV 42 mls/hr DIRECT JAMIN Administration Sodium Chloride 100 mls @ 999 mls/hr 03/24/19 10:09 Nacl 0.9% IV ALIVIA PRN Hypotension Oxycodone/Acetaminophen 1 tab 03/23/19 21:04 Percocet 5/325 PO Q6H PRN Pain, Moderate (4-6)
[2019-03-27] MEDS: NACL 0.9% 1000 ML 1,000 ML IV SCH (19:36)
[2019-03-28] MEDS: DILAUDID IV PRN ×3 (00:40→07:07)
[2019-03-28] MEDS: BENADRYL IV PRN (03:58)
[2019-03-28 06:38] VITALS: BP 141/94
[2019-03-28] MEDS ORDERED: FLUSH HEPARIN IV ONE (08:28)
[2019-03-28] MEDS: FOLVITE PO SCH (10:14)
[2019-03-28] MEDS: ELIQUIS PO SCH (10:14)
--- NOTE | 2019-03-28 10:32 | Progress Note ---
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 (3) ESRD (end stage renal disease) Current Visit: Yes Status: Chronic Plan to address problem: 24 hr urine creatinine clearance was 9.5 mls/min. Discussed with patient and grandmother at the bedside. Continue hemodialysis on a Tuesday, and Tuesday schedule at the outpatient dialysis clinic. No renal recovery yet. Creatinine is low due to decreased muscle mass from sedentary state (4) Elevated white blood cell count Current Visit: Yes Status: Acute Plan to address problem: Cultures remained negative. Probably secondary to sickle cell crisis Subjective Date of service: 03/28/19 Principal diagnosis: sickle pain crisis. Interval history: Patient seen lying in bed. Pain is controlled. No chest pain or shortness of breath Objective - Exam Narrative Exam: Middle-aged -[place] male lying in bed in no acute distress HEENT: NCAT, pink oral mucous membrane Neck: Supple, no venous distention CVS: S1S2 RRR with no murmur, rub or gallop Chest: Clear to auscultation Abdomen: Protuberant, soft, nontender, no organomegaly, bowel sounds are present Extremities: No edema Neuro: Awake, alert no focal deficits - Vital Signs Vital signs: Vital Signs - 12hr 03/28/19 03/28/19 03/28/19 00:13 05:38 06:00 Temperature 98.1 F 99.5 F Pulse Rate 92 H 107 H Respiratory 18 20 Rate Blood Pressure 128/91 141/94 O2 Sat by Pulse 86 88 95 Oximetry - Lab 03/27/19 07:00 03/27/19 07:00 Most recent lab results Calcium 8.6 mg/dL (8.4-10.2) 03/27/19 07:00 Phosphorus 4.60 mg/dL (2.5-4.5) H 03/27/19 07:00 Magnesium 1.70 mg/dL (1.7-2.3) 03/27/19 07:00 33.1 mg/dL (0.1-20.0) H 03/26/19 15:55 Medications & Allergies - Medications Allergies/Adverse Reactions: Allergies hydroxyzine HCl [From Vistaril] Allergy (Verified 10/24/15 07:44) Hives hydroxyzine pamoate [From Vistaril] Allergy (Verified 10/24/15 07:44) Hives Home Medications: Home Medications Medication Instructions Recorded Confirmed Last Taken Type Folic Acid [Folvite] 1 mg PO QDAY 05/08/15 03/23/19 03/22/19 History diphenhydrAMINE [Benadryl CAP] 25 mg PO Q6HR PRN 05/08/15 03/23/19 03/22/19 Hi story Oxycodone HCl/Acetaminophen 1 each PO Q6HR PRN 10/14/15 03/23/19 03/22/19 History [Percocet 10/325 mg] Rivaroxaban [Xarelto] 20 mg PO QDAY 06/07/17 03/23/19 03/22/19 History Paxil 20 mg PO DAILY 03/25/19 03/25/19 Unknown History Active Medications: Generic Name Dose Route Start Last Admin Trade Name Freq PRN Reason Stop Dose Admin Apixaban 2.5 mg 03/23/19 22:00 03/28/19 10:14 Eliquis PO 2.5 mg Q12HR JAMIN Administration Protocol Diphenhydramine HCl 25 mg 03/23/19 15:02 03/28/19 03:58 Benadryl IV 25 mg Q6H PRN Administration Itching Folic Acid 1 mg 03/24/19 10:00 03/28/19 10:14 Folvite PO 1 mg QDAY JAMIN Administration Hydromorphone HCl 3 mg 03/23/19 15:00 03/28/19 07:07 Dilaudid IV 3 mg Q3H PRN Administration Pain , Severe (7-10) Sodium Chloride 1,000 mls @ 42 mls/hr 03/23/19 16:00 03/27/19 19:36 Nacl 0.9% 1000 Ml IV 42 mls/hr DIRECT JAMIN Administration Sodium Chloride 100 mls @ 999 mls/hr 03/24/19 10:09 Nacl 0.9% IV ALIVIA PRN Hypotension Oxycodone/Acetaminophen 1 tab 03/23/19 21:04 Percocet 5/325 PO Q6H PRN Pain, Moderate (4-6)
== END 2019-03-28 11:00 | disposition home or self-care (01) | DRG 811 ==
LOC: ED 00:43 → 3A 07:38 → OBSVTOIN 03-26 10:12
PROVIDERS: ADMIT Internal Medicine Hematology & Oncology; ATTEND Internal Medicine Hematology & Oncology
PROC: 5A1D70Z Performance of Urinary Filtration, Intermittent, Less than 6 Hours Per Day (ICD-10-PCS; principal; 2019-03-24)
PROC: 5A1D70Z Performance of Urinary Filtration, Intermittent, Less than 6 Hours Per Day (ICD-10-PCS; 2019-03-27)
DX: D57.00 Hb-SS disease with crisis, unspecified (principal); N18.6 End stage renal disease; I12.0 Hypertensive chronic kidney disease with stage 5 chronic kidney disease or end stage renal disease; E86.0 Dehydration; Z88.8 Allergy status to other drugs, medicaments and biological substances; Z86.718 Personal history of other venous thrombosis and embolism; M19.90 Unspecified osteoarthritis, unspecified site; Z90.49 Acquired absence of other specified parts of digestive tract; Z96.642 Presence of left artificial hip joint; M54.9 Dorsalgia, unspecified; Z99.2 Dependence on renal dialysis
CPT/HCPCS: 36415; 80048; 80053; 82570; 82728; 83550; 83735; 84100; 85007; 85025; 85045; 87040; 96374; 96375; G0378; J1170; J1200; J1642; J1885; J2405; J7030